=== PATIENT | male | born 1960 | race Caucasian/White ===

== ENCOUNTER 2022-01-28 15:28 | Outpatient (CLI) | payer MEDICAID, SELFPAY ==
[2022-01-28 17:39] LABS: Chloride* 99 mmol/L (96-114)
[2022-01-28 17:40] LABS: Albumin* 4.3 g/dL (3.3-5.0); Sodium* 132 mmol/L (135-149)
[2022-01-28 17:42] LABS: Creatinine* 2.8 mg/dL (0.5-1.5); Estimated Glomerular Filt Rate 25 ml/min
[2022-01-28 17:43] LABS: Blood Urea Nitrogen* 54 mg/dL (7-30); Carbon Dioxide* 24 mmol/L (20-32); Glucose* 107 mg/dL (60-115); Uric Acid* 6.7 mg/dL (2.2-8.4)
[2022-01-28 17:44] LABS: Calcium* 10.8 mg/dL (8.4-10.6); Phosphorus* 4.8 mg/dL (2.5-4.5)
[2022-01-28 17:53] LABS: C Reactive Protein* < 0.5 mg/dL (0.5-1.0)
[2022-01-28 18:13] LABS: Hepatitis B Surface Antigen* Negative (Negative)
[2022-01-28 18:31] LABS: Hepatitis C Virus Antibody* Negative (Negative)
[2022-01-28 20:14] LABS: Microalbumin Creatinine Ratio 40 mg/g (0-30); Microalbumin Urine 7 mg/dL
[2022-01-28 20:49] LABS: HIV 1/2/P24 Combo Screen* Negative (Negative)
[2022-01-30 13:15] LABS: Complement Component 3 170 mg/dL (90-180); Complement Component 4 34 mg/dL (10-40)
[2022-01-30 17:58] LABS: Kappa Qnt Free Light Chains 34.75 mg/L (3.30-19.40); Kappa-Lambda Qt FLC W/ Ratio 1.24 (0.26-1.65); Lambda Qnt Free Light Chains 28.13 mg/L (5.71-26.30)
[2022-02-01 04:02] LABS: Albumin 4.02 g/dL (3.75-5.01); Alpha 1 Globulin 0.42 g/dL (0.19-0.46); Alpha 2 Globulin 0.87 g/dL (0.48-1.05); Total Protein, Serum 7.6 g/dL (6.3-8.2)
[2022-02-11 13:02] LABS: ANCA IFA Titer <1:20
== END 2022-01-28 15:29 | disposition home or self-care (01) ==
PROVIDERS: PCP Family Medicine; Visit Provider Internal Medicine Nephrology
DX: N17.9 Acute kidney failure, unspecified (principal); N18.9 Chronic kidney disease, unspecified
CPT/HCPCS: 80069; 82043; 82570; 83516; 83520; 84165; 84550; 86140; 86160; 86225; 86255; 86703; 86803; 87086; 87340

== ENCOUNTER 2022-02-03 08:41 | Outpatient (CLI) | payer MEDICAID, SELFPAY ==
[2022-02-03 10:14] LABS: Total Protein Urine 30 mg/dL
[2022-02-03 10:20] LABS: Creatinine Urine 92.4 mg/dL
[2022-02-04 10:02] LABS: Collection Time Urine 24 Hours; Total Protein 24 Hour Urine 450 mg/dL; Total Volume 24 Hour Urine 1500 ml; Urine Creatinine mg/24 Hour 0 mg/Day
== END 2022-02-03 08:42 | disposition home or self-care (01) ==
LOC: NFLDREF 08:42
PROVIDERS: PCP Family Medicine; Visit Provider Internal Medicine Nephrology
DX: N17.9 Acute kidney failure, unspecified (principal); N18.9 Chronic kidney disease, unspecified
CPT/HCPCS: 82570; 84156

== ENCOUNTER 2022-02-11 09:04 | Outpatient (CLI) | payer MEDICAID, SELFPAY ==
--- NOTE | 2022-02-11 09:15 | CRLHL7_ITS ---
For Patients: As a result of the Century Cures Act, medical imaging exams and procedure reports are released immediately into your electronic medical record. You may view this report before your referring provider. If you have questions, please contact your health care provider. CLINICAL HISTORY: Acute kidney failure COMPARISON: none TECHNIQUE: Torre scale and color Doppler images were acquired of the kidneys. FINDINGS: Simple cyst is present which arises from the lower pole of the right kidney measuring 3.3 x 3.1 x 3.5 cm. There is no evidence of hydronephrosis, solid mass or calculus. The right kidney measures 11.6cm in length and the left kidney measures 11.9cm in length. The renal cortex appears of normal thickness. Normal color Doppler images of both kidneys. IMPRESSION: No hydronephrosis. Dictated by Samuel Talamantes MD @ 02/11/2022 10:01:23 AM (Electronically Signed)
== END 2022-02-11 09:05 | disposition home or self-care (01) ==
LOC: US 09:05
PROVIDERS: PCP Family Medicine; Visit Provider Internal Medicine Nephrology
DX: N17.9 Acute kidney failure, unspecified (principal)
CPT/HCPCS: 76775

== ENCOUNTER 2022-03-11 08:28 | Outpatient (CLI) | payer MEDICAID, SELFPAY ==
--- OUTSIDE RECORDS SUMMARY | 2022-03-11 08:30 | XMS_ITS | Clinical Summary ---
:1960 Author Organization [employer] [facility] [place] [address] Care Team Providers Name Role Phone Hi Adams MD Primary Care Provider Allergies No known active allergies Medications Medication Sig Dispensed Refills Start Date End Date Status NICODERM CQ 21 MG/24 HR Use as directed 6 weeks 0 11/14/2002 Active TD PT24 for smoking cessation. rosuvastatin (CRESTOR) Take 20 mg by 0 Active 20 mg tablet mouth once daily. metoprolol tartrate Take 50 mg by 0 Active (LOPRESSOR) 100 mg mouth 2 times tablet daily. lisinopril-hydrochlorot Take 1 Tablet by 0 Active hiazide, 20-25 mg, mouth once daily. (PRINZIDE, ZESTORETIC) 20-25 mg per tablet nitroglycerin Place 0.4 mg 0 Act bandar (NITROSTAT) 0.4 mg under the tongue sublingual tablet every 5 minutes if needed for Chest Pain. aspirin chewable 81 mg Chew 81 mg by 0 Active chewable tablet mouth once daily. clopidogreL (PLAVIX) 75 Take 1 Tablet (75 90 Tablet 3 03/07/20 21 Active mg tabletIndications: mg) by mouth once ASHD (arteriosclerotic daily. heart disease) amLODIPine (NORVASC) 10 TAKE ONE TABLET 90 Tablet 3 06/05/2021 Active mg tabletIndications: BY MOUTH (10MG) Essential hypertension ONCE DAILY ezetimibe (Zetia) 10 mg Take 1 Tablet (10 90 Tablet 3 09/27/19 22 Active tabletIndications: mg) by mouth once Coronary artery disease daily. involving [place] coronary artery without angina pectoris, unspecified whether [place] or transplanted heart Active Problems Problem Noted Date COPD (chronic obstructive pulmonary disease) Dyslipidemia 03/07/2021 ASHD (arteriosclerotic heart disease) 03/07/2021 Overview: - CCTA 02/22/2021 1. Borderline significant distal left ma in stenosis. 2. Severe proximal and intermediate neeraj rity distal RCA stenoses. A. Significant PDA stenosis in a small vessel. 3. Marked diffuse non-obstructive salguero ry artery disease. - angiogram 03/07/2021: s/p NILS x 3 RCA; s /p NILS LAD with side branch PTCA Chest pain 03/07/2021 HYPERTENSION - ESSENTIAL 11/14/2002 Hx TOBACCO USE Encounters Date Type Specialty Care Team Description 02/21/2022 Travel from Last 3 Months Social History Tobacco Use Types Packs/Day Years Used Date Former Smoker 1 Smokeless Tobacco: Never Used Comments: quit 8 years ago Alcohol Use Standard Drinks/Week Comments Yes 14 (1 standard drink = 0.6 oz pure alcoh ol) 2 cocktails per night Alcohol Habits Answer Date Recorded How often do you have a drink containing alcohol? Not asked How many drinks containing alcohol do you have on Not asked a typical day when you are drinking? How often do you have six or more drinks on one Not asked occasion? Comment: 2 cocktails per night 03/07/2021 Sex Assigned at Date Recorded Not on file COVID-19 Exposure Response Date Recorded In the last 10 days, have you been in contact Unable to asse ss 02/21/2022 7:16 AM CDT with someone who was confirmed or suspected to have Coronavirus/COVID-19? Obstetrics History Last Filed Vital Signs Vital Sign Reading Time Taken Comments Blood Pressure 142/97 03/08/2021 8:24 AM CDT Pulse 97 03/08/2021 8:24 AM CDT Temperature 36.7 ??C (98 ??F) 03/08/2021 8:24 AM CDT Respiratory Rate 16 03/08/2021 8:24 AM CDT Oxygen Saturation 98% 03/08/2021 8:24 AM CDT Inhaled Oxygen Concentration - - Weight 90.7 kg (200 lb) 03/07/2021 8:12 AM CDT Height 170.2 cm (5' 7) 03/07/2021 8:12 AM CDT Body Mass Index 31.32 03/07/2021 8:12 AM CDT Plan of Treatment Health Maintenance Due Date Last Done Comments Tdap 1972 Depression screening for age 12+ 1973 BMI (ht and wt on same day) for age 1207/04/1979 18+ Hepatitis C screening for age 18-79 1979 Tetanus booster 1981 Colonoscopy through age 75 2006 Zoster (shingles) series for age 50+ 2011 (1 of 2) COVID-19 vaccine series (4 - Booster 01/03/2022 09/03/2021, 02/26/2021, for Pfizer series) 02/05/2021 Influenza for age 50-64 03/06/2022 Lipids for age 45-75 03/04/2026 03/04/2021 Results Not on filefrom Last 3 Months Insurance Payer Benefit Plan / Subscriber ID Effective Dates Phone Addre ss Type Group [employer]INH PARR MA [id number] 2021-Present [address] [place] [address] Advance Directives Latest Code Status on File Code Status Date Activated Date Inactivated Comments Full Code 03/07/2021 8:55 AM 03/08/2021 12:47 PM Code Status Discussion: Discussed Care Teams Import/Export Specialist Relationship Specialty Start Date End Date Hi Adams MD PCP - General Family Practice 02/12/211999 [place] [phone]
--- OUTSIDE RECORDS SUMMARY | 2022-03-11 08:30 | XMS_ITS | Encounter Summary ---
:1960 Author Organization [facility] Address [address] [place] [address] Care Team Providers Name Role Phone Unavailable Primary Care Provider Unavailable Encounter Details Date Type Department Care Team Description 02/11/2022 Clinical Communication Division of Nephrology Poncho Quach, and Hypertension in Ayleen Jovel, [place], [place] Ph.D. [address] [facility] [address] [place] [address] [phone] Social History Tobacco Use Types Packs/Day Years Used Date Smoking Tobacco: Never Assessed Sex Assigned at Date Recorded Not on file documented as of this encounter Plan of Treatment Not on filedocumented as of this encounter Visit Diagnoses Not on filedocumented in this encounter
--- OUTSIDE RECORDS SUMMARY | 2022-03-11 08:30 | XMS_ITS | Clinical Summary ---
:1960 Author Organization [facility] Address [address] [place] [address] Care Team Providers Name Role Phone Unavailable Primary Care Provider Unavailable Source Comments Patient records contain information from all sites at [facility]. For routine questions regarding patient records, call [phone] during business hours, M-F 8:00 AM - 5:00 PM Central Time. Record requests for emergency care only can be directed to [phone] at any time.[facility] Encounters Date Type Specialty Care Team Description 02/25/2022 Clinical Nephrology and [place] Communication Hypertension Becka Quach M.D., Ph.D. 02/11/2022 Clinical Nephrology and [place] Communication Hypertension Becka Quach M.D., Ph.D. 01/28/2022 External Outreach Nephrology and Pon[place] Failure Renal Acute (Acute Kidney Injury) (HCC) (Primary Dx); Hypertension Becka Quach, Chronic Kidne y Disease (CKD), Stage 3a Glomerular Filtration Rate (GFR) 45 To 59 (HCC) Ayleen, Ph.D. from Last 3 Months Social History Tobacco Use Types Packs/Day Years Used Date Smoking Tobacco: Never Assessed Sex Assigned at Date Recorded Not on file Plan of Treatment Health Maintenance Due Date Last Done Comments CT Colonography 1960 Cologuard 1960 Colonoscopy 1960 Colorectal Cancer Screening 1960 FIT 1961 HIV Screening 1961 Hepatitis B Vaccines (1 of 3 - 1961 3-dose series) Hepatitis C Screening 1961 Pneumococcal vaccine (0-64 years) 1967 (1 - PCV) Zoster Vaccines (1 of 2) 2011 Depression Screening (Annual 07/06/2021 PHQ-2) COVID-19 Vaccine (4 - Booster for 01/03/2022 09/03/2021, , Pfizer series) 02/05/2021 Sodium Level 03/04/2022 03/04/2021 Creatinine Level 03/08/2022 03/08/2021, 03/07/2021, 03/04/2021, Additional history exists Potassium Level 03/08/2022 03/08/2021, 03/04/2021 Influenza Vaccine (#1) 2022 04/22/2021, 08/17/2017 Fasting Glucose for Diabetes 03/04/2024 03/04/2021 Screening Lipid (Cholesterol) Screening 03/04/2026 03/04/2021 DTaP,Tdap,and Td Vaccines (2 - Td 06/13/2031 06/13/2021 or Tdap) Insurance Payer Benefit Plan Subscriber ID Effective Dates Phone Address Type / Group [facility] [id number] 2021-Alonso [phone] [address] Medicaid HMO t 5 [place] [address]
--- OUTSIDE RECORDS SUMMARY | 2022-03-11 08:30 | XMS_ITS | Encounter Summary ---
:1960 Author Organization [facility] Address [address] [place] [address] Care Team Providers Name Role Phone Unavailable Primary Care Provider Unavailable Reason for Visit Appointment Request (Routine) - Closed Specialty Diagnoses / Procedures Referred By Contact Refer red To Contact Nephrology and Hi Adams Hypertension Ayleen [address] [place] [address] Referral ID Status Reason Start Date Expiration Date Visits Requ ested Visits Authorized [id number] Closed 01/10/2022 01/10/2023 1 Encounter Details Date Type Department Care Team Description 01/28/2022 External Outreach Division of Esau Keene Renal Acute (Acute Kidney Injury) (HCC) (Primary Dx); Nephrology and Ayleen Jovel, Chronic Kidne y Disease (CKD), Stage 3a Glomerular Filtration Rate (GFR) 45 To 59 (HCC) Hypertension in Ph.D. [address] [place] [phone] Social History Tobacco Use Types Packs/Day Years Used Date Smoking Tobacco: Never Assessed Sex Assigned at Date Recorded Not on file documented as of this encounter Consult Notes Becka Keene M.D., Ph.D. - 01/28/2022 3:00 PM CDT Referring Provider: Hi Adams M.D. SUBJECTIVE REASON FOR CONSULT Acute kidney injury. HISTORY OF PRESENT ILLNESS Mr. Huerta is a 61-year-old gentleman with a history of coronary artery disease status post 4 stents placed in February 2021. He also has history of long-standing hypertension diagnosed in 1999, on and off medication due to insurance issues. More recently, better controlled on treatment with lisinopril 20 mg daily and hydrochlorothiazide 25 mg daily, amlodipine 10 mg daily, metoprolol 50 mg twice a day.Patient is referred to Nephrology for evaluation of his kidney function. In June 2021, his creatinine was 1.2 mg/dL. It has been increasing since then. It was rechecked in September 2021, and was up to2 mg/dL, and it was repeated in December 2021, and it was 2.9 mg/dL. Patient does not take NSAIDs regularly, however he has started taking them within the last 4 weeks due to back pain and he stated he hadtaken 4 tablets with 200 mg since then. He has noticed decrease in his urinary output and difficulty to void with decreased urine stream at times. However, he feels that he is able to empty his bladder completely. No history of kidney stones. No family history of kidney disease. He has not noticed any problem urinating or blood in urine. [place], however he has presented some purpuric lesions in his upper extremities associated with some exposure. He does not have any lower extremity rash. Overall, patient feels well, however concerned for his kidney function. He has been taking his blood pressure at home, and it is usually in the 110s-120s/60s-70s. Today in clinic his blood pressure is borderline low with systolic of 98/64 diastolic, pulse 81. He is asymptomatic. PMH and PSH included in HPI Social History: No history of smoking, no alcohol Family History: No history of CKD REVIEW OF SYSTEMS All other systems were reviewed and are negative, rest as per HPI. OBJECTIVE PHYSICAL EXAMINATION Vital Signs: Blood pressure 98/64, pulse 81. General: No acute distress. Lying comfortably. Heart: Regular rate and rhythm. No murmurs, rubs, or gallops. Lungs: Clear to auscultation bilaterally. Abdomen: Prominent, nontender, nondistended. There are some bowel sounds. Extremities: Full range of motion. No edema. Normal gait. Neuro: No focal deficit. Skin: There is this purpuric lesions in upper extremities. Psych: Answers questions appropriately. No signs of anxiety or depression noted. DIAGNOSTICS Labs: I have reviewed available labs in detail with patient. ASSESSMENT / PLAN #1 Acute kidney injury of unclear origin #2 Hypertension management #3 Coronary artery disease status post stent placement February 2021, on chronic anticoagulation with Plavix Patient will be referred to Nephrology for evaluation of his kidney function. I have noticed rapid increase in his creatinine over the past 6 months from creatinine of 1.2 to most recent 1 of 2.9 last month. There is no recent urinalysis. There is no recent kidney ultrasound. I have ordered urinalysis, urine albumin:creatinine ratio. I have also ordered a 24-hour urine collection for protein. GN workup has been ordered to evaluate for KARELY, including viral serologies and autoimmune serologies. I haveordered a kidney ultrasound to evaluate kidney size and rule out obstruction as the cause of his acute kidney injury. I have discussed with him the recommendation of doing a kidney biopsy. If all this workup turns out to be normal, to further evaluate the cause. I will be contacting him once all thesetests have resulted. The patient will contact his local size marker as he is due to follow up with them to ask when it is safe to hold Plavix in preparation for kidney biopsy as he needs to be off Plav ix at least 7 days prior and to be off 7 days after kidney biopsy. All questions were answered. Nolvia Quach M.D., Ph.D. CT CT Job ID: [id number] Addendum: Lab work up was unremarkable. UA with bland sediment, no proteinuria. Unclear cause of his CKD. Kidney ultrasound pending. If ultrasound is normal, I favor doing a kidney biopsy for further evaluation, pending cardiology approval on holding anticoagulation 7 days prior and 7 days after procedure. documented in this encounter Plan of Treatment Not on filedocumented as of this encounter Visit Diagnoses Diagnosis Failure Renal Acute (Acute Kidney Injury ) (HCC) - Primary Chronic Kidney Disease (CKD), Stage 3a G lomerular Filtration Rate (GFR) 45 To 59 (HCC) documented in this encounter
--- OUTSIDE RECORDS SUMMARY | 2022-03-11 08:30 | XMS_ITS | Encounter Summary ---
:1960 Author Organization [facility] Address [address] [place] [address] Care Team Providers Name Role Phone Unavailable Primary Care Provider Unavailable Encounter Details Date Type Department Care Team Description 02/25/2022 Clinical Communication Division of Nephrology Poncho Quach, and Hypertension in Ayleen Jovel, [place], [place] Ph.D. [address] [facility] [address] [place] [phone] Social History Tobacco Use Types Packs/Day Years Used Date Smoking Tobacco: Never Assessed Sex Assigned at Date Recorded Not on file documented as of this encounter Miscellaneous Notes Telephone Encounter - Becka Keene M.D., Ph.D. - 02/25/2022 4:10 PM CDT I have reviewed patient's laboratory work and renal ultrasound, results are unremarkable. It is unclear etiology of his elevated creatinine. Creatinine has stabilized however has not improved yet. Patient is on anticoagulation. I will discuss with patient about the recommendation of doing a kidney biopsy for further investigation. I have contacted him today however I was not able to reach him I left a message to contact us back. Nolvia Quach M.D., Ph.D. documented in this encounter Plan of Treatment Not on filedocumented as of this encounter Visit Diagnoses Not on filedocumented in this encounter
[2022-03-11 11:44] LABS: PSA Screen* 0.62 ng/mL (0.10-4.00)
== END 2022-03-11 08:29 | disposition home or self-care (01) ==
LOC: NFLDREF 08:29
PROVIDERS: PCP Family Medicine; Visit Provider Family Medicine
DX: Z00.00 Encounter for general adult medical examination without abnormal findings (principal); Z12.5 Encounter for screening for malignant neoplasm of prostate
CPT/HCPCS: 84153

== ENCOUNTER 2022-03-18 08:48 | Outpatient (CLI) | payer MEDICAID, SELFPAY ==
--- OUTSIDE RECORDS SUMMARY | 2022-03-18 08:50 | XMS_ITS | Encounter Summary ---
:1960 Author Organization [facility] Address [address] [place] [address] Care Team Providers Name Role Phone Unavailable Primary Care Provider Unavailable Reason for Visit Appointment Request (Routine) - Closed Specialty Diagnoses / Procedures Referred By Contact Refer red To Contact Nephrology and Hi Adams Hypertension Ayleen [address] [place] [address] Referral ID Status Reason Start Date Expiration Date Visits Requ ested Visits Authorized [id number] Closed 01/10/2022 01/10/2023 1 Encounter Details Date Type Department Care Team Description 01/28/2022 External Outreach Division of Esau Keene Renal Acute (Acute Kidney Injury) (HCC) (Primary Dx); Nephrology and Ayleen Jovel, Chronic Kidne y Disease (CKD), Stage 3a Glomerular Filtration Rate (GFR) 45 To 59 (HCC) Hypertension in Ph.D. [address] [place] [phone] [phone] Social History Tobacco Use Types Packs/Day Years [...] resulted. The patient will contact his local gas engine performance engineer as he is due to follow up with them to ask when it is safe to hold Plavix in preparation for kidney biopsy as he needs to be off Plav ix at least 7 days prior and to be off 7 days after kidney biopsy. All questions were answered. Nolvia Quach M.D., Ph.D. CT CT Job ID: [id number] Addendum: Lab work up was unremarkable. UA [...]
--- OUTSIDE RECORDS SUMMARY | 2022-03-18 08:50 | XMS_ITS | Encounter Summary ---
:1960 Author Organization [facility] Address [address] [place] [address] Care Team Providers Name Role Phone Unavailable Primary Care Provider Unavailable Encounter Details Date Type Department Care Team Description 02/25/2022 Clinical Communication Division of Nephrology Poncho Quach, and Hypertension in Ayleen Jovel, [place], [place] Ph.D. [address] [facility] [address] [place] [phone] [phone] Social History Tobacco Use Types Packs/Day Years [...]
--- OUTSIDE RECORDS SUMMARY | 2022-03-18 08:50 | XMS_ITS | Clinical Summary ---
:1960 Author Organization [employer] [facility] [place] [address] Care Team Providers Name Role Phone Hi Adams MD Primary Care Provider Allergies No known active allergies Medications Medication Sig Dispensed Refills Start Date End Date Status rosuvastatin Take 20 mg by 0 Act bandar (CRESTOR) 20 mg mouth once tablet daily. metoprolol Take 50 mg by 0 Activ e tartrate mouth 2 times (LOPRESSOR) 100 mg daily. tablet lisinopril-hydroch Take 1 Tablet 0 Active lorothiazide, by mouth once 20-25 mg, daily. (PRINZIDE, ZESTORETIC) 20-25 mg per tablet nitroglycerin Place 0.4 mg 0 Act bandar (NITROSTAT) 0.4 mg under the sublingual tablet tongue every 5 minutes if needed for Chest Pain. aspirin chewable Chew 81 mg by 0 Active 81 mg chewable mouth once tablet daily. amLODIPine TAKE ONE 90 Tablet 3 06/05/2021 Active (NORVASC) 10 mg TABLET BY tabletIndications: MOUTH (10MG) Essential ONCE DAILY hypertension ezetimibe (Zetia) Take 1 Tablet 90 Tablet 3 09/26/2021 Active 10 mg (10 mg) by tabletIndications: mouth once Coronary artery daily. disease involving [place] coronary artery without angina pectoris, unspecified whether [place] or transplanted heart NICODERM CQ 21 Use as 6 weeks 0 11/14/2002 Disc ontinued MG/24 HR TD PT24 directed for 2 (*Med smoking complete/R egimen cessation. complete/ Level of care santana e) clopidogreL Take 1 Tablet 90 Tablet 3 03/07/2021 Dis continued (PLAVIX) 75 mg (75 mg) by 2 (*Me d tabletIndications: mouth once complete/Regimen ASHD daily. complete/L evel of (arteriosclerotic ca re change) heart disease) Active Problems Problem Noted Date COPD (chronic [...] Encounters Date Type Specialty Care Team Description 03/14/2022 Office Visit Samuel Wynn MD Follow Up 03/14/2022 Travel 02/21/2022 Travel from Last 3 Months Social [...] been in contact Unable to asse ss 03/14/2022 8:43 AM CDT with someone who was confirmed or suspected to have Coronavirus/COVID-19? Obstetrics History Last Filed Vital Signs Vital Sign Reading Time Taken Comments Blood Pressure 126/74 03/14/2022 3:21 PM CDT Pulse 84 03/14/2022 3:21 PM CDT Temperature 36.7 ??C (98 ??F) 03/08/2021 8:24 AM CDT Respiratory Rate 16 03/14/2022 3:21 PM CDT Oxygen Saturation 98% 03/08/2021 8:24 AM CDT Inhaled Oxygen Concentration - - Weight 100.7 kg (222 lb) 03/14/2022 3:21 PM CDT Height 170.2 cm (5' 7) 03/07/2021 8:12 AM CDT Body Mass Index 34.77 03/07/2021 8:12 AM CDT Plan of Treatment [...] Effective Dates Phone Addre ss Type Group FRAN[employer]ISE PURCELL FRANCOISE PURCELL [id number] 2021-Present [address] [place] [address] Advance Directives Latest Code Status on File Code Status Date Activated Date Inactivated Comments Full Code 03/07/2021 8:55 AM 03/08/2021 12:47 PM Code Status Discussion: Discussed Care Teams Attacher Relationship Specialty Start Date End Date Hi Adams MD PCP - General Family Practice 02/12/211999 [place] [address]
--- OUTSIDE RECORDS SUMMARY | 2022-03-18 08:50 | XMS_ITS | Encounter Summary ---
:1960 Author Organization [facility] Address [address] [place] [address] Care Team Providers Name Role Phone Unavailable Primary Care Provider Unavailable Encounter Details Date Type Department Care Team Description 02/11/2022 Clinical Communication Division of Nephrology Poncho Quach, and Hypertension in Ayleen Jovel, [place], [place] Ph.D. [address] [facility] [address] [place] [phone] Social History Tobacco Use Types Packs/Day Years Used Date Smoking Tobacco: Never Assessed Sex Assigned at Date Recorded Not on file documented as of this encounter Plan of Treatment Not on filedocumented as of this encounter Visit Diagnoses Not on filedocumented in this encounter
--- OUTSIDE RECORDS SUMMARY | 2022-03-18 08:50 | XMS_ITS | Clinical Summary ---
:1960 Author Organization [facility] Address [address] [place] [address] Care Team Providers Name Role Phone Unavailable Primary Care Provider Unavailable Source Comments Patient records contain information from all sites at [facility]. For routine questions regarding patient records, call [phone] during business hours, M-F 8:00 AM - 5:00 PM Central Time. Record requests for emergency care only can be directed to [phone] at any time.[facility] Encounters Date Type Specialty Care Team Description 03/18/2022 External Outreach Nephrology and [place] Arrived Hypertension Becka Quach M.D., Ph.D. 02/25/2022 Clinical Nephrology and Poncho Communication Hypertension [...] 1960 3-dose series) Hepatitis C Screening 1960 Zoster Vaccines (1 of 2) 2011 Depression Screening (Annual 07/06/2021 PHQ-2) COVID-19 Vaccine (4 - Booster for 01/03/2022 09/03/2021, , Pfizer series) 02/05/2021 Sodium Level 03/04/2022 03/04/2021 Creatinine Level 03/08/2022 03/08/2021, 03/07/2021, 03/04/2021, Additional history exists Potassium Level 03/08/2022 03/08/2021, 03/04/2021 Influenza Vaccine (#1) 2022 04/22/2021, 08/17/2017 Pneumococcal vaccine (0-64 years) 03/11/2023 03/11/2022 (2 - PCV) Fasting Glucose for Diabetes 03/04/2024 03/04/2021 Screening Lipid (Cholesterol) Screening 03/04/2026 03/04/2021 DTaP,Tdap,and Td Vaccines (2 - Td 06/13/2031 06/13/2021 or Tdap) Insurance Payer Benefit Plan Subscriber ID Effective Dates Phone Address Type / Group [facility] [id number] 2021-Alonso [phone] [address] Medicaid HMO t 5 [place] [address]
--- OUTSIDE RECORDS SUMMARY | 2022-03-18 08:50 | XMS_ITS | Encounter Summary ---
:1960 Author Organization [facility] Address [address] [place] [address] Care Team Providers Name Role Phone Unavailable Primary Care Provider Unavailable Reason for Visit Appointment Request (Routine) - Closed Specialty Diagnoses / Procedures Referred By Contact Refer red To Contact Nephrology and Hypertension Referral ID Status Reason Start Date Expiration Date Visits Requ ested Visits Authorized [id number] Closed 02/28/2022 02/28/2023 1 Encounter Details Date Type Department Care Team Description 03/18/2022 External Outreach Division of Nephrology Poncho lovett, [place]ige and Hypertension cordelia Jovel M.D., Ph.D. [address] [place] [phone] (Wo rk) Social History Tobacco Use Types Packs/Day Years Used Date Smoking Tobacco: Never Assessed Sex Assigned at Date Recorded Not on file documented as of this encounter Plan of Treatment Not on filedocumented as of this encounter Visit Diagnoses Not on filedocumented in this encounter
[2022-03-18 12:45] LABS: Albumin* 4.6 g/dL (3.3-5.0); Chloride* 102 mmol/L (96-114); Potassium* 5.4 mmol/L (3.6-5.1); Sodium* 134 mmol/L (135-149)
[2022-03-18 12:48] LABS: Blood Urea Nitrogen* 44 mg/dL (7-30); Carbon Dioxide* 21 mmol/L (20-32); Estimated Glomerular Filt Rate 38 ml/min
[2022-03-18 12:49] LABS: Calcium* 10.5 mg/dL (8.4-10.6); Glucose* 119 mg/dL (60-115)
== END 2022-03-18 08:49 | disposition home or self-care (01) ==
LOC: NFLDREF 08:49
PROVIDERS: PCP Family Medicine; Visit Provider Internal Medicine Nephrology
DX: N17.9 Acute kidney failure, unspecified (principal); N18.9 Chronic kidney disease, unspecified
CPT/HCPCS: 80069

== ENCOUNTER 2022-04-28 08:51 | Outpatient (CLI) | payer MEDICAID, SELFPAY ==
--- OUTSIDE RECORDS SUMMARY | 2022-04-28 08:41 | XMS_ITS | Encounter Summary ---
:1960 Author Organization [facility] Address [address] [place] [address] Care Team Providers Name Role Phone Unavailable Primary Care Provider Unavailable Encounter Details Date Type Department Care Team Description 02/11/2022 Clinical Communication Division of Nephrology Poncho Quach, and Hypertension in Ayleen Jovel, [place], [place] Ph.D. [address] [facility] [address] [place] [phone] Social History Tobacco Use Types Packs/Day Years Used Date Smoking Tobacco: Never Assessed Sex Assigned at Date Recorded Not on file documented as of this encounter Plan of Treatment Not on filedocumented as of this encounter Visit Diagnoses Not on filedocumented in this encounter
--- OUTSIDE RECORDS SUMMARY | 2022-04-28 08:41 | XMS_ITS | Clinical Summary ---
:1960 Author Organization [employer] [facility] [place] [address] Care Team Providers Name Role Phone Hi Adams MD Primary Care Provider Allergies No known active allergies Medications Medication Sig Dispensed Refills Start Date End Date Status rosuvastatin (CRESTOR) Take 20 mg by 0 [...] 0 Active chewable tablet mouth once daily. amLODIPine (NORVASC) 10 TAKE ONE TABLET 90 Tablet 3 06/05/2021 Active mg tabletIndications: BY MOUTH (10MG) Essential hypertension ONCE DAILY ezetimibe (Zetia) 10 mg Take 1 Tablet (10 90 Tablet 3 09/27/19 22 Active tabletIndications: mg) by mouth once Coronary artery disease daily. involving [place] coronary artery without angina pectoris, unspecified whether [place] or transplanted heart Active Problems Problem Noted [...] Assigned at Date Recorded Not on file Obstetrics History Last Filed Vital Signs Vital [...] 2) COVID-19 vaccine series (4 - Booster 10/29/2021 09/03/2021, 02/26/2021, for Pfizer series) 02/05/2021 Influenza for age 50-64 03/06/2022 Lipids for age 45-75 03/04/2026 03/04/2021 Results Not on filefrom Last 3 Months Insurance Payer Benefit Plan / Subscriber ID Effective Dates Phone Addre ss Type Group [employer] [place] [id number] 2021-Present [address] [place] [address] Advance Directives Latest Code Status on File Code Status Date Activated Date Inactivated Comments Full Code 03/07/2021 8:55 AM 03/08/2021 12:47 PM Code Status Discussion: Discussed Care Teams Senior Water/Wastewater Engineer Relationship Specialty Start Date End Date Hi Adams MD PCP - General Family Practice 02/12/211999 [place] [address]
--- OUTSIDE RECORDS SUMMARY | 2022-04-28 08:41 | XMS_ITS | Encounter Summary ---
:1960 Author Organization [facility] Address [address] [place] [address] Care Team Providers Name Role Phone Unavailable Primary Care Provider Unavailable Reason for Referral Outpatient (Routine) - Closed Specialty Diagnoses / Procedures Referred By Contact Refer red To Contact Diagnoses Failure Renal Acute (Acute Kidney Injury) [facility] Bi[facility] Left or Right Ayleen, Ph.D. [address] [place] [phone] Referral ID Status Reason Start Date Expiration Date Visits Requ ested Visits Authorized [id number] Closed 03/18/2022 03/18/2023 1 1 Reason for Visit Appointment Request (Routine) - Closed Specialty Diagnoses / Procedures Referred By Contact Refer red To Contact Nephrology and Hypertension Referral ID Status Reason Start Date Expiration Date Visits Requ ested Visits Authorized [id number] Closed 02/28/2022 02/28/2023 1 Encounter Details Date Type Department Care Team Description 03/18/2022 External Outreach Division of Esau Keene Renal Acute Nephrology and Ayleen Jovel, (Acute Kidney Hypertension in Ph.D. Injury) ([facility]) [place], [place] [address] [place] [address] (Primary Dx) [address] [place] [phone] Social History Tobacco Use Types Packs/Day Years Used Date Smoking Tobacco: Never Assessed Sex Assigned at Date Recorded Not on file documented as of this encounter Consult Notes Becka Keene M.D., Ph.D. - 03/18/2022 8:30 AM CDT SUBJECTIVE REASON FOR CONSULT KARELY. HISTORY OF PRESENT ILLNESS Mr. Huerta is a 61-year-old gentleman with history of coronary artery disease who is status post 4 stents in February 2021. Also, history of longstanding hypertension, diagnosed in 1999. On and off medication due to insurance issues. Recently with better controlled blood pressure with lisinopril 20 mg daily, hydrochlorothiazide 25 mg daily, amlodipine 10 mg daily, metoprolol 50 mg twice daily. He was referred to Nephrology a few months ago for evaluation of KARELY on CKD. His baseline in June 2021 wasa creatinine of 1.2 mg/dL. Since then, it has increased and is currently ranging around 2.9 mg/dL. No history of NSAIDs. He has noticed a decrease in his urinary output and difficulty to urinate with decreased urine stream. His ultrasound did not show any signs of urinary obstruction. We did several of these that came back negative. He has been on Plavix after stents were placed in February 2021, and it was recently discontinued about a week ago. Blood pressure has been well controlled when checked athome. Overall, he feels well and does not have any current concerns. OBJECTIVE VITAL SIGNS Blood pressure 126/74. Pulse 90. PHYSICAL EXAMINATION General: No acute distress, breathing comfortably. Heart: Regular rate and rhythm. No murmurs, rubs or gallops. Respiratory: Regular inspiratory effort. No wheezes, no rhonchi. Abdomen: Soft, not tender, not distended. Present bowel sounds. Extremities: Full range of motion. Normal gait. No edema in lower extremities Neuro: No focal deficits. Alert and oriented X 4. Skin: Warm. No rashes. Psych: Answers questions appropriately. No signs of anxiety or depression noted. DIAGNOSTICS Labs: I have reviewed available labs in detail with patient. ASSESSMENT / PLAN #1 Acute kidney injury of unclear etiology #2 Hypertension management Patient comes for followup. Workup for glomerulonephritis has been negative, renal ultrasound ruled out obstructive nephropathy . It is unclear what has caused his rise in creatinine from June 2021until now. His creatinine has not improved, and it seems to have stabilized at a level of 2.9. I have discussed with him about doing a kidney biopsy. We were waiting for him to be off Plavix. He discontinued this medication a week ago. Benefits and risks regarding kidney biopsy were discussed in detail with patient. Kidney biopsy is an outpatient procedure performed by the interventional radiologists under local anesthesia with ultrasound guidance. The benefits include the possibility to reach a diagnosis and guide therapy. The risks include a risk of infection, as we are introducing a needle in the skin, however, this risk is reduced by using a sterile technique. There is a risk of pain, this risk is reduced by using local anesthesia. And we extensively discussed the risk of bleeding. This risk is reduced by having patient's blood pressure well controlled at the time of procedure, and by holding any antiplatelets or anticoagulants for 7 days prior to biopsy, if the patient is on them (recently off plavix). If profuse bleeding is encountered after the procedure, we also discussed the risk of requiring a blood transfusion, and in some cases, a second procedure, such as an embolization to stop the bleeding. Patient is able to perform an informed medical decision weighting risks and benefits of the procedure and agrees on having biopsy done. He will have biopsy done next week, and we will discuss results when available. All questions were answered. Nolvia Quach M.D., Ph.D. CT CT Job ID: [id number] documented in this encounter Plan of Treatment Not on filedocumented as of this encounter Results US Kidney Biopsy Left or Right (03/28/2022 1:56 PM CDT) Anatomical Region Laterality Modality Abdomen, Renal, Ultrasound RST LOS, Ultrasound ARZ LOS, N/A Ultrasound Procedure FLA LOS, Abdominal FLA LOS, Procedural Specimen (Source) Anatomical Collection Method Collection Time Re ceived Time Location / / Volume Laterality 03/28/2022 1:56 PM CDT Impressions 03/28/2022 1:57 PM CDT Ultrasound-guided osage kidney biopsy. NR Narrative 03/28/2022 1:57 PM CDT EXAM: US KIDNEY BIOPSY LEFT OR RIGHT PRE-PROCEDURE: Patient seen and evaluate d. Allergies, pertinent medications, and history reviewed. Discussed risks, benefits, alternatives for procedure, and obtained informed consent. Patient understands information and questions an swered. Immediately prior to starting the procedure, in the presence of the assisting personnel, pro cedural pause was conducted to verify correct patient identity and verification of procedure t o be performed, and as applicable, correct side and site, correct patient position, availability o f implants, special equipment, or special requirements, and all image and specimen identification da ta. The roles and responsibilities of care team members, residents, and fellows were discussed. TECHNIQUE: Sterile. 1% lidocaine for loc al anesthesia. Location: Cortex lower pole of left kidn ey. Needle size: 18-gauge Number of passes: 2 Complication: None. Blood loss: Minimal. PATIENT INSTRUCTIONS: Patient may be dis missed from the radiology department when dismissal criteria met. POST-PROCEDURE DIAGNOSIS: Renal dysfunct ion. Procedure Note Valentin Espinosa M.D. - 03/28/2022Format ting of this note might be different from the original. EXAM: US KIDNEY BIOPSY LEFT OR RIGHT PRE-PROCEDURE: Patient seen and evaluate d. Allergies, pertinent medications, and history reviewed. Discussed risks, benefits, alternatives for procedure, and obtained informed consent. Patient understands information and questions an swered. Immediately prior to starting the procedure, in the presence of the assisting personnel, pro cedural pause was conducted to verify correct patient identity and verification of procedure t o be performed, and as applicable, correct side and site, correct patient position, availability o f implants, special equipment, or special requirements, and all image and specimen identification da ta. The roles and responsibilities of care team members, residents, and fellows were discussed. TECHNIQUE: Sterile. 1% lidocaine for loc al anesthesia. Location: Cortex lower pole of left kidn ey. Needle size: 18-gauge Number of passes: 2 Complication: None. Blood loss: Minimal. PATIENT INSTRUCTIONS: Patient may be dis missed from the radiology department when dismissal criteria met. POST-PROCEDURE DIAGNOSIS: Renal dysfunct ion. IMPRESSION: Ultrasound-guided osage kidney biopsy. NR Becka Quach M.D., Ph.D. IMG US PROCEDURES (ABNORMAL) CBC with Differential, Blood (03/28/2022 9:53 AM CDT) [facility] Method Time Signature Hemoglobin 10.4 (L) 13.2 - 03/28/2022 DTL 16.6 g/dL 10:30 AM CDT Hematocrit 34.7 (L) 38.3 - 03/28/2022 DTL 48.6 % 10:30 AM CDT Erythrocytes 3.94 (L) 4.35 - 03/28/2022 DTL 5.65 10:30 AM CDT x10(12)/L MCV 88.1 78.2 - 03/28/2022 DTL 97.9 fL 10:30 AM CDT RBC Distrib Width 12.7 11.8 - 03/28/2022 DTL 14.5 % 10:30 AM CDT Platelet Count 359 (H) 135 - 317 03/28/2022 DTL x10(9)/L 10:30 AM CDT Leukocytes 9.0 3.4 - 9.6 03/28/2022 DTL x10(9)/L 10:30 AM CDT Neutrophils 5.89 1.56 - 03/28/2022 DTL 6.45 10:30 AM CDT x10(9)/L Lymphocytes 1.66 0.95 - 03/28/2022 DTL 3.07 10:30 AM CDT x10(9)/L Monocytes 1.15 (H) 0.26 - 03/28/2022 DTL 0.81 10:30 AM CDT x10(9)/L Eosinophils 0.23 0.03 - 03/28/2022 DTL 0.48 10:30 AM CDT x10(9)/L Basophils 0.09 (H) 0.01 - 03/28/2022 DTL 0.08 10:30 AM CDT x10(9)/L Specimen Anatomical Collection Method Collection Time Receive d Time (Source) Location / / Volume Laterality Blood (Blood, 03/28/2022 9:53 AM 03/28/20 22 Venous) CDT 10:23 AM CDT Becka Quach M.D., Ph.D. LAB BLOOD ADD-ON Performing Organization Address City/State/ZIP Code Phon e Number [facility] - [address] [place], [place] [address] [facility] [place] [address] [facility] [place] 200 [facility] APTT (Activated Partial Thromboplastin Time) (03/28/2022 9:53 AM CDT) athologist Signature Activated 28 25 - 37 sec 03/28/2022 DTL Partial 10:39 AM CDT Thrombopl Time, P Specimen Anatomical Collection Method Collection Time Receive d Time (Source) Location / / Volume Laterality Blood (Blood, 03/28/2022 9:53 AM 03/28/20 22 Venous) CDT 10:23 AM CDT Becka Quach M.D., Ph.D. LAB BLOOD ADD-ON Performing Organization Address City/[facility] Phon e Number [facility] - [address] [place], [place] [address] [place] [address] [facility] [place] [address] Prothrombin Time (PT) (03/28/2022 9:53 AM CDT) P athologist Signature Prothrombin 10.8 9.4 - 12.5 03/28/2022 DTL Time, P sec 10:39 AM CDT INR 1.0 0.9 - 1.1 03/28/2022 DTL 10:39 AM CDT Comment: ----ADDITIONAL INFORMATION---- Standard intensity warfarin therapeutic range: 2.0 to 3.0 ?? High intensity warfarin therapeutic rang e: 2.5 to 3.5 Specimen Anatomical Collection Method Collection Time Receive d Time (Source) Location / / Volume Laterality Blood (Blood, 03/28/2022 9:53 AM 03/28/20 22 Venous) CDT 10:23 AM CDT Becka Quach M.D., Ph.D. LAB BLOOD ADD-ON Performing Organization Address City/[facility] Phon e Number [facility] - [address] [place], [place] [address] [facility] [place] [place] [address] [facility] [place] [address] [facility] documented in this encounter Visit Diagnoses Diagnosis Failure Renal Acute (Acute Kidney Injury ) (HCC) - Primary Failure Renal Acute (Acute Kidney Injury ) (HCC) documented in this encounter
--- OUTSIDE RECORDS SUMMARY | 2022-04-28 08:41 | XMS_ITS | Encounter Summary ---
:1960 Author Organization [facility] Address [address] [place] [address] Care Team Providers Name Role Phone Unavailable Primary Care Provider Unavailable Encounter Details Date Type Department Care Team Description 02/25/2022 Clinical Communication Division of Nephrology Poncho Quach, and Hypertension in Ayleen Jovel, [place], [place] Ph.D. [address] [facility] [address] [place] [phone] Social History Tobacco Use Types Packs/Day Years [...]
--- OUTSIDE RECORDS SUMMARY | 2022-04-28 08:41 | XMS_ITS | Clinical Summary ---
:1960 Author Organization [facility] Address [address] [place] [address] Care Team Providers Name Role Phone Unavailable Primary Care Provider Unavailable Source Comments Patient records contain information from all sites at [facility]. For routine questions regarding patient records, call [phone] during business hours, M-F 8:00 AM - 5:00 PM Central Time. Record requests for emergency care only can be directed to [phone] at any time.[facility] Allergies No known active allergies Medications Medication Sig Dispensed Refills Start Date End Date Status Ventolin HFA 90 as needed. 0 01/27/2022 Ac tive mcg/actuation inhaler amLODIPine Take by mouth. 0 06/05/2021 Act bandar (NORVASC) 10 mg tablet aspirin 81 mg Chew 81 mg. 0 Acti ve chewable tablet clopidogreL Take 75 mg by mouth 0 02/26/2022 Active (PLAVIX) 75 mg daily. tablet Advair Diskus INHALE 1 PUFF BY 0 02/19/2022 Active 250-50 mcg/act MOUTH TWICE A DAY - diskus inhaler IN THE MORNING AND EVENING APPROXIMATELY 12 HOURS APART lisinopril-hydroCHL Take 1 tablet by 0 03/03/2022 Active OROthiazide mouth daily. (VIRGEN ANDERSON C) 20-25 mg per tablet metoprolol tartrate Take 50 mg by mouth 2 0 03/03/20 22 Active (LOPRESSOR) 50 mg (two) times a day. tablet Encounters Date Type Specialty Care Team Description 04/01/2022 Clinical Radiology Valentin Espinosa Follow-up (Leelee Weaver M.D. Procedure Foll ow Up Phone Call) 03/28/2022 Hospital Encounter Becka Cespedes, Jemal (Acute MTerrence, Ph.D. Kidney Injury) ([facility]) 03/28/2022 Hospital Encounter Laboratory Medicine Pon[place] steen Renal Becka Quach, Acute (Acute M.D., Ph.D. Kidney Injury) (HCC) 03/18/2022 External Outreach Nephrology and [place] Failure Renal Hypertension Becka Quach, Acute (Acute M.D., Ph.D. Kidney Injury) (HCC) (Primary Dx) 02/25/2022 Clinical Nephrology and [place] Communication Hypertension Becka Quach M.D., Ph.D. 02/11/2022 Clinical Nephrology and [place] Communication Hypertension Becka Quach M.D., Ph.D. 01/28/2022 External Outreach Nephrology and [place] Failure Renal Acute (Acute Kidney Injury) (HCC) (Primary Dx); Hypertension Main Becka, Chronic Kidne y Disease (CKD), Stage 3a Glomerular Filtration Rate (GFR) 45 To 59 ([facility]) Ayleen, Ph.D. from Last 3 Months Social History Tobacco Use Types Packs/Day Years Used Date Smoking Tobacco: Former Cigarettes Smokeless Tobacco: Current Tobacco Cessation: Ready to Quit: Not As ked; Counseling Given: Not Answered Alcohol Use Standard Drinks/Week Comments Yes 0 (1 standard drink = 0.6 oz pure alcoho l) 9 cocktails per week Sex Assigned at Date Recorded Not on file Last Filed Vital Signs Vital Sign Reading Time Taken Comments Blood Pressure 122/78 03/28/2022 4:21 PM CDT Pulse 72 03/28/2022 4:21 PM CDT Temperature 36.6 ??C (97.9 ??F) 03/28/2022 2:15 PM CDT Respiratory Rate - - Oxygen Saturation 97% 03/28/2022 2:15 PM CDT Inhaled Oxygen Concentration - - Weight - - Height - - Body Mass Index - - Plan of Treatment Health Maintenance Due Date Last Done Comments CT Colonography 1960 Cologuard 1960 Colonoscopy 1960 Colorectal Cancer Screening 1960 FIT 1960 HIV Screening 1960 Hepatitis B Vaccines (1 of 3 - 1960 3-dose series) Hepatitis C Screening 1960 Tobacco Cessation counseling 1960 Zoster Vaccines (1 of 2) 2011 Depression Screening (Annual 07/06/2021 PHQ-2) COVID-19 Vaccine (4 - Booster for 10/29/2021 09/03/2021, , Pfizer series) 02/05/2021 Sodium Level 03/04/2022 03/04/2021 Creatinine Level 03/08/2022 03/08/2021, 03/07/2021, 03/04/2021, Additional history exists Potassium Level 03/08/2022 03/08/2021, 03/04/2021 Influenza Vaccine (#1) 2022 04/22/2021, 08/17/2017 Pneumococcal vaccine (0-64 years) 03/11/2023 03/11/2022 (2 - PCV) Fasting Glucose for Diabetes 03/04/2024 03/04/2021 Screening Lipid (Cholesterol) Screening 03/04/2026 03/04/2021 DTaP,Tdap,and Td Vaccines (2 - Td 06/13/2031 06/13/2021 or Tdap) Procedures Procedure Name Priority Date/Time Associated Comments Diagnosis US KIDNEY BIOPSY LEFT RAD - Routine 03/28/2022 1:56 Failure Renal R esults for OR RIGHT (most inpatients PM CDT Acute (Acute this proced ure and all Kidney Injury) are in the outpatients) ([facility]) results section. RENAL PATHOLOGY Timed 03/28/2022 1:43 Results f or PM CDT this procedure are in the results section. CBC WITH Routine 03/28/2022 9:53 Failure Renal Results for DIFFERENTIAL, B AM CDT Acute (Acute this procedu re Kidney Injury) are in the ([facility]) results section. ACTIVATED PARTIAL Routine 03/28/2022 9:53 Failure Renal Result s for THROMBOPLASTIN TIME AM CDT Acute (Acute this pro cedure (APTT), P Kidney Injury) are in the ([facility]) results section. PROTHROMBIN TIME Routine 03/28/2022 9:53 Failure Renal Results for (PT), P AM CDT Acute (Acute this procedure Kidney Injury) are in the ([facility]) results section. from Last 3 Months Results US Kidney Biopsy Left or Right (03/28/2022 1:56 PM CDT) Anatomical Region Laterality Modality Abdomen, Renal, Ultrasound RST LOS, Ultrasound ARZ LOS, N/A Ultrasound Procedure FLA LOS, Abdominal FLA LOS, Procedural Specimen (Source) Anatomical Collection Method Collection Time Re ceived Time Location / / Volume Laterality 03/28/2022 1:56 PM CDT Impressions 03/28/2022 1:57 PM CDT Ultrasound-guided koi kidney biopsy. NR Narrative 03/28/2022 1:57 PM [...] POST-PROCEDURE DIAGNOSIS: Renal dysfunct ion. IMPRESSION: Ultrasound-guided koi kidney biopsy. NR Becka Quach M.D., Ph.D. IMG US PROCEDURES Renal Pathology (03/28/2022 1:43 PM CDT) Component Value Ref Test Analysis Performed Pathologis t Range Method Time At Signature 03/31/2022 DRBX 3:52 PM CDT Report Santo Arias M.D., Ph.D. 03/31/2022 DR BX electronically 3:52 PM signed by CDT I verify that I have examined all relevant slides/materials for the specimen(s) and rendered or confirmed the diagnosis. Gross Description Light Microscopy: Received in formalin for light 03/31/2022 DRBX microscopy: 1 piece(s) of tissue measuring 1.5 x 0.04 (cut) 3:52 PM cm. ??1 piece(s) measuring 0.2 x 0.04 cm is taken from the CDT formalin specimen for electron microscopy. ??Submitted in total in block(s) A4. (TS) Electron Microscopy: Refer to Light Microscopy for details on reallocation of tissue. (TS) Immunofluorescence: Received in Roland for immunofluorescence: 1 piece(s) of tissue measuring 1.3 x 0.03 cm. ??Submitted in total for immunofluorescence. (IY) Material Received A. : 03/31/2022 DRBX 3:52 PM CDT 1 - Formalin 10% wet tissue 1 - Roland wet tissue Disclaimer This test was developed and its performance characteri stics 03/31/2022 DRBX determined by [facility] in a manner consistent with CLIA 3:52 PM requirements. This test has not been cleared or approved by CDT the U.S. Food and Drug Administration. Addendum ELECTRON MICROSCOPY: ??Two survey sections are examined. 04/14/2022 DRBX There are up to five glomeruli present. ??None of the 2:51 PM glomeruli are globally sclerosed. ??Ultrastructural CDT examination of two glomeruli from block 2 show relatively well preserved foot processes of the visceral epithelial cells. ??Some of the capillary loops show ischemic changes with collapse of the glomerular basement membranes. Electron dense deposits are not present along the capillary chopra. ??The glomerular basement membranes appear slightly thickened. ??The endothelial cells do not contain tubuloreticular inclusions. ??In one capillary loop, needle shaped cleft/cholesterol embolus is noted. ??The endothelial cells show loss of fenestrations, they do not contain tubuloreticular inclusions. ??Segmental collapse of the capillary abi is also present in one glomerulus, suggestive of secondary focal segmental glomerulosclerosis. The mesangium shows minimal increase in matrix material, it does not contain electron dense deposits. ? Impression: ?? Kidney, needle biopsy: ??1) Acute tubu lar injury. ??2) Arteriosclerosis, moderate. 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 Addendum Comment: ??Ultrastructural studies show a needle-shaped cleft in a glomerular capillary, consistent with atheroembolic disease. Signed by Santo Arias M.D., Ph.D. 04/14/2022 2:51 PM Comment: REVISED RESULTS Interpretation FINAL DIAGNOSIS 04/14/2022 2:51 PM CDT DRBX Kidney, needle biopsy: ??1) Acute tubular injury. ??2) Arteriosclerosis, moderate. ??3) Focal global glomerulosclerosis, with mild tubular atrophy and interstitial fibrosis. COMMENT The biopsy is adequate for interpretation. This renal biopsy shows acute tubular injury that is superimposed on mild-moderate chronic changes involving all components of the parenchyma including mild focal global glomerulosclerosis, mild tubular atrophy and interstitial fibrosis, and moderate arteriosclerosis. ??There is no evidence of an immune complex-mediated glomerulonephritis. MICROSCOPIC DESCRIPTION ? LIGHT MICROSCOPY: Tissue sections are stained with H&E, PAS, Mckay trichrome, and Castillo methenamine silver to aid in the morphological interpretation. ??The sample submitted for light microscopy contains two cores. ??They contain renal cortex and medulla. ??There are approximately 15 glomeruli present. ??Three glomeruli are globally sclerosed. Glomeruli with segmental sclerosis are not present. ??The glomeruli show no evidence of crescents, fibrinoid necrosis, thrombosis, or endocapillary hypercellularity. ??The mesangium is unremarkable, proliferative features are not present. ??Basement membrane spikes, pinholes, or double contours are not present along the capillary chopra. ?TUBULES AND INTERSTITIUM: ??Tubules show degenerative changes with distention and flattening of the epithelium, some of the tubules show increased vacuolization of the tubular epithelial cells and contain necrotic debris in the lumen. ??There is also mild interstitial edema and focal interstitial inflammation present, the infiltrates contain mostly mononuclear cells. ??There is also mild (20-25%) tubular atrophy and interstitial fibrosis present. ?VESSELS: ??Arteries show moderate sclerosis o f the intima. ??There is no evidence of thrombosis, emboli, or arteritis. ? IMMUNOFLUORESCENT HISTOLOGY: Immunofluorescence staining is performed using antibodies to IgA, IgG, IgM, C1q, C3, albumin, fibrinogen, kappa, and lambda. ??There are three glomeruli present. ??None of the glomeruli are globally sclerosed. ??The glomeruli are negative for IgA, IgG, IgM, C1q, C3, albumin, fibrinogen, kappa and lambda light chains. ? ELECTRON MICROSCOPY: Electron microscopy will be reported as an addendum. CLINICAL INFORMATION This is a 61-year-old man presenting with acute tubular injury, hypertension, coronary artery disease, status post stent placement in 2020. ??Serum creatinine has gone up over the last six months from a baseline of 1.2 to 2.9. Serologies are all negative. Specimen Anatomical Collection Method Collection Time Receive d Time (Source) Location / / Volume Laterality Biopsy (Kidney, 03/28/2022 1:43 PM 2021 2:27 Left) CDT PM CDT Narrative This result has an attachment that is no t available. Becka Quach M.D., Ph.D. LAB PATH RENAL ORDER RADHA Performing Organization Address City/State/ZIP Code Phon e Number [facility] - [address] [place], [place] [address] [facility] [place] [address] Laboratories-[facility] [address] APTT (Activated Partial Thromboplastin Time) (03/28/2022 9:53 AM CDT) P athologist Signature Activated 28 25 - 37 sec 03/28/2022 DTL Partial 10:39 AM CDT Thrombopl Time, P Specimen Anatomical Collection Method Collection Time Receive d Time (Source) Location / / Volume Laterality Blood (Blood, 03/28/2022 9:53 AM 03/28/20 22 Venous) CDT 10:23 AM CDT Becka Quach M.D., Ph.D. LAB BLOOD ADD-ON Performing Organization Address City/[facility]/ZIP Code Phon e Number [facility] - [address] [place] [address] [place] [address] Laboratories-[facility] 200 [facility] Prothrombin Time (PT) (03/28/2022 9:53 AM CDT) [...] Ph.D. LAB BLOOD ADD-ON Performing Organization Address City/[facility] Code Phon e Number [facility] - [address] [place] [address] [place] [address] Laboratories-[address] (ABNORMAL) CBC with Differential, Blood (03/28/2022 9:53 AM CDT) Patholo gist Method Time Signature Hemoglobin 10.4 (L) 13.2 [...] Organization Address City/State/ZIP Code Phon e Number [facility] - [address] [place], [place] [address] [place] [address] Laboratories-[facility] [address] from Last 3 Months Insurance Payer Benefit Plan Subscriber ID Effective Dates Phone Address Type / Group [facility] [id number] 2021-Presen [phone] [id number] Medicaid HMO t 5 [place] [address]
--- OUTSIDE RECORDS SUMMARY | 2022-04-28 08:41 | XMS_ITS | Encounter Summary ---
:1960 Author Organization [facility] Address [address] [place] [address] Care Team Providers Name Role Phone Unavailable Primary Care Provider Unavailable Reason for Referral Outpatient (Routine) - Closed Specialty Diagnoses / Procedures Referred By Contact Refer red To Contact Diagnoses Failure Renal Acute (Acute Kidney Injury) ([facility] Kidney Biopsy Left or Right Ayleen, Ph.D. [address] [place] [phone] Referral ID Status Reason Start Date Expiration Date Visits Requ ested Visits Authorized [id number] Closed 03/18/2022 03/18/2023 1 1 Reason for Visit Auth/Cert Specialty Diagnoses / Procedures Referred By Contact Refer red To Contact Diagnoses Failure Renal Acute (Acute Kidney Injury) (HCC) Procedures US KIDNEY BIOPSY LEFT OR RIGHT Referral ID Status Reason Start Date Expiration Date Visits Requ ested Visits Authorized [id number] 1 1 Encounter Details Date Type Department Care Team Description 03/28/2022 Hospital Encounter Outpatient Surgery Nia Keene Renal Acute Unit in Becka Sweet M.D., (Acute [place] Ph.D. Injury) (HCC) 200 [facility] [address] [place] [phone] Social History Tobacco Use Types Packs/Day Years Used Date Smoking Tobacco: Former Cigarettes Smokeless Tobacco: Current Tobacco Cessation: Ready to Quit: Not As ked; Counseling Given: Not Answered Alcohol Use Standard Drinks/Week Comments Yes 0 (1 standard drink = 0.6 oz pure alcoho l) 9 cocktails per week Sex Assigned at Date Recorded Not on file documented as of this encounter Last Filed Vital Signs Vital Sign Reading Time Taken Comments Blood Pressure 122/78 03/28/2022 4:21 PM CDT Pulse 72 03/28/2022 4:21 PM CDT Temperature 36.6 ??C (97.9 ??F) 03/28/2022 2:15 PM CDT Respiratory Rate - - Oxygen Saturation 97% 03/28/2022 2:15 PM CDT Inhaled Oxygen Concentration - - Weight - - Height - - Body Mass Index - - documented in this encounter Medications at Time of Discharge Medication Sig Dispensed Refills Start Date End Date Advair Diskus 250-50 INHALE 1 PUFF BY MOUTH 0 mcg/act diskus inhaler TWICE A DAY - IN THE MORNING AND EVENING APPROXIMATELY 12 HOURS APART aspirin 81 mg chewable Chew 81 mg. 0 tablet clopidogreL (PLAVIX) 75 Take 75 mg by mouth 0 mg tablet daily. Ventolin HFA 90 as needed. 0 01/27/2022 mcg/actuation inhaler amLODIPine (NORVASC) 10 Take by mouth. 0 06/05/20 21 mg tablet lisinopril-hydroCHLOROt Take 1 tablet by mouth 0 03/03/2022 hiazide daily. (PRINZIDE,ZESTORETIC) 20-25 mg per tablet metoprolol tartrate Take 50 mg by mouth 2 0 03/03 (LOPRESSOR) 50 mg (two) times a day. tablet documented as of this encounter Plan of Treatment Not on filedocumented as of this encounter Procedures Procedure Name Priority Date/Time Associated Comments Diagnosis US KIDNEY BIOPSY RAD - Routine 03/28/2022 1:56 Failure Renal Result s for this LEFT OR RIGHT (most inpatients PM CDT Acute (Acute procedure are in and all Kidney Injury) the results outpatients) (HCC) section. RENAL PATHOLOGY Timed 03/28/2022 1:43 Results f or this PM CDT procedure are i n the results section. documented in this encounter Results US Kidney Biopsy Left or Right (03/28/2022 1:56 PM CDT) Anatomical Region Laterality Modality Abdomen, Renal, Ultrasound RST LOS, Ultrasound ARZ LOS, N/A Ultrasound Procedure FLA LOS, Abdominal FLA LOS, Procedural Specimen (Source) Anatomical Collection Method Collection Time Re ceived Time Location / / Volume Laterality 03/28/2022 1:56 PM CDT Impressions 03/28/2022 1:57 PM CDT Ultrasound-guided [place] kidney biopsy. NR Narrative 03/28/2022 1:57 PM [...] POST-PROCEDURE DIAGNOSIS: Renal dysfunct ion. IMPRESSION: Ultrasound-guided [place] kidney biopsy. NR Becka Quach M.D., Ph.D. IMG US PROCEDURES Renal Pathology (03/28/2022 1:43 PM CDT) Component Value Ref Test Analysis Performed Pathologis t Range Method Time At Signature 03/31/2022 DRBX 3:52 PM CDT Report Santo Arias M.D., Ph.D. 03/31/2022 BX electronically 3:52 PM signed by CDT [...] performance characteri stics 03/31/2022 DRBX determined by [facility] in a manner consistent with CLIA [...] Organization Address City/State/ZIP Code Phon e Number [facility] - [address] [place], [place] [address] [facility] [place] [address] Laboratories-[facility] [address] documented in this encounter Visit Diagnoses Diagnosis Failure Renal Acute (Acute Kidney Injury ) (HCC) documented in this encounter Administered Medications Inactive Administered Medications - up to 3 most recent administrations Medication Order MAR Action Action Date Dose Rate Site acetaminophen tablet 1,000 mg (TYLENOL) 1,000 mg, oral, Every 6 hours PRN, mild pain or score 1-3 of 10, first line option, Starting on Thu03/28/22 at 1414 lidocaine 10 mg/mL (1 %) injection Given 03/28/2022 1:49 10 mL Abdominal (XYLOCAINE) PM CDT Tissue Code/trauma/sedation medication, Starting on Thu03/28/22 at 1349 documented in this encounter Active and Recently Administered Medications Times are shown in CDT. PRN Medication Order 03/26/2022 03/27/2022 03/28/2022 acetaminophen tablet 1,000 mg (TYLENOL) 1,000 mg, oral, Every 6 hours PRN, mild pain or score 1-3 of 10, first line option, Starting on Thu03/28/22 at 1414 lidocaine 10 mg/mL (1 %) injection (XYLOCAINE) (COMPLETED) 1349 (Given - Provider: Valentin Espinosa M.D.) Code/trauma/sedation medication, Starting on Thu03/28/22 at 1349 documented in this encounter
--- OUTSIDE RECORDS SUMMARY | 2022-04-28 08:41 | XMS_ITS | Encounter Summary ---
:1960 Author Organization [facility] Address [address] [place] [address] Care Team Providers Name Role Phone Unavailable Primary Care Provider Unavailable Encounter Details Date Type Department Care Team Description 03/28/2022 Hospital Encounter Department of [place] Quach, Deandre kevin Renal Acute Laboratory Medicine Ayleen Jovel, (Acute K idney and Pathology, Ph.D. Injury) ([facility]) [place], in [address] [facility] [phone] [place] [address] [place], [place] (Work) [phone] Social History Tobacco Use Types Packs/Day Years Used Date Smoking Tobacco: Former Cigarettes Smokeless Tobacco: Current Alcohol Use Standard Drinks/Week Comments Yes 0 (1 standard drink = 0.6 oz pure alcoho l) 9 cocktails per week Sex Assigned at Date Recorded Not on file documented as of this encounter Medications at Time of Discharge Medication Sig Dispensed Refills Start Date End Date Advair Diskus 250-50 INHALE 1 PUFF BY MOUTH 0 mcg/act diskus inhaler TWICE A DAY - IN THE MORNING AND EVENING APPROXIMATELY 12 HOURS APART amLODIPine (NORVASC) 10 Take by mouth. 0 06/05/20 21 mg tablet clopidogreL (PLAVIX) 75 Take 75 mg by mouth 0 mg tablet daily. lisinopril-hydroCHLOROt Take 1 tablet by mouth 0 03/03/2022 hiazide daily. (PRINZIDE,ZESTORETIC) 20-25 mg per tablet metoprolol tartrate Take 50 mg by mouth 2 0 03/03 (LOPRESSOR) 50 mg (two) times a day. tablet Ventolin HFA 90 as needed. 0 01/27/2022 mcg/actuation inhaler documented as of this encounter Plan of Treatment Not on filedocumented as of this encounter Procedures Procedure Name Priority Date/Time Associated Comments Diagnosis ACTIVATED PARTIAL Routine 03/28/2022 9:53 AM Failure Renal Res ults for this THROMBOPLASTIN TIME CDT Acute (Acute procedur e are in (APTT), P Kidney Injury) the results ([facility]) section. PROTHROMBIN TIME (PT), Routine 03/28/2022 9:53 AM Failure Nona l Results for this P CDT Acute (Acute procedure are i n Kidney Injury) the results ([facility]) section. CBC WITH DIFFERENTIAL, Routine 03/28/2022 9:53 AM Failure Nona l Results for this B CDT Acute (Acute procedure are i n Kidney Injury) the results ([facility]) section. documented in this encounter Results (ABNORMAL) CBC with Differential, Blood (03/28/2022 9:53 AM CDT) [place] [facility] Method Time Signature Hemoglobin 10.4 (L) [...] Ph.D. LAB BLOOD ADD-ON Performing Organization Address [facility] Phon e Number [facility] - [address] [place] [address] APTT (Activated Partial Thromboplastin Time) (03/28/2022 9:53 [...] Ph.D. LAB BLOOD ADD-ON Performing Organization Address City/[facility] Phon e Number [facility] - [address] Prothrombin Time (PT) (03/28/2022 9:53 AM [...] City/State/ZIP Code Phon e Number [facility] - [facility] [address] [place], [place] [address] [facility] [place] [place] [address] Laboratories-[facility] [address] documented in this encounter Visit Diagnoses Diagnosis Failure Renal Acute (Acute Kidney Injury ) (HCC) documented in this encounter
--- OUTSIDE RECORDS SUMMARY | 2022-04-28 08:41 | XMS_ITS | Encounter Summary ---
:1960 Author Organization [facility] Address [address] [place] [address] Care Team Providers Name Role Phone Unavailable Primary Care Provider Unavailable Reason for Visit Reason Comments Follow-up Post Procedure Follow Up Blank ne Call Encounter Details Date Type Department Care Team Description 04/01/2022 Clinical Communication Department of Valentin Espinosa (Post Radiology, Carmencita Weaver M.D. Procedure Follow Up [facility] in [address] Phone Call) [facility] [phone] [address] [facility] [phone] [place], [place] (Work) [phone] Social History Tobacco Use Types Packs/Day Years Used Date Smoking Tobacco: Former Cigarettes Smokeless Tobacco: Current Alcohol Use Standard Drinks/Week Comments Yes 0 (1 standard drink = 0.6 oz pure alcoho l) 9 cocktails per week Sex Assigned at Date Recorded Not on file documented as of this encounter Miscellaneous Notes Telephone Encounter - Phylicia Sctot R.N. - 04/01/2022 8:05 AM CDT Unable to reach patient for post-procedure phone call. Procedure performed: Kidney Date of biopsy/ procedure: 03/28/2022 Name of performing practitioner: Dr. Espinosa Dates of attempting to contact patient: 03/31/2022. 03/31/2022 *RN attempted to call pt. regarding post procedural assessment, not result related documented in this encounter Plan of Treatment Not on filedocumented as of this encounter Visit Diagnoses Not on filedocumented in this encounter
--- OUTSIDE RECORDS SUMMARY | 2022-04-28 08:41 | XMS_ITS | Encounter Summary ---
:1960 Author Organization [facility] Address [address] [place] [address] Care Team Providers Name Role Phone Unavailable Primary Care Provider Unavailable Reason for Visit Appointment Request (Routine) - Closed Specialty Diagnoses / Procedures Referred By Contact Refer red To Contact Nephrology and Hi Adams Hypertension M.D. 1999 [place] [address] Referral ID Status Reason Start Date Expiration Date Visits Requ ested Visits Authorized [id number] Closed 01/10/2022 01/10/2023 1 Encounter Details Date Type Department Care Team Description 01/28/2022 External Outreach Division of Esau Keene Renal Acute (Acute Kidney Injury) (HCC) (Primary Dx); Nephrology and Ayleen Jovel, Chronic Kidne y Disease (CKD), Stage 3a Glomerular Filtration Rate (GFR) 45 To 59 (HCC) Hypertension in Ph.D. [place], [place] [address] [place] [address] [place] [phone] [phone] Social History Tobacco Use Types Packs/Day Years [...] any problem urinating or blood in urine. Main, however he has presented some purpuric lesions [...] resulted. The patient will contact his local visitor services information assistant as he is due to follow up with them to ask when it is safe to hold Plavix in preparation for kidney biopsy as he needs to be off Plav ix at least 7 days prior and to be off 7 days after kidney biopsy. All questions were answered. Nolvia Quach M.D., Ph.D. CT CT Job ID: [id number]/[facility] Addendum: Lab work up was unremarkable. UA [...]
[2022-04-28 10:24] LABS: Chloride* 101 mmol/L (96-114)
[2022-04-28 10:25] LABS: Albumin* 4.7 g/dL (3.3-5.0); Potassium* 5.4 mmol/L (3.6-5.1); Sodium* 135 mmol/L (135-149)
[2022-04-28 10:27] LABS: Creatinine* 1.9 mg/dL (0.5-1.5); Estimated Glomerular Filt Rate 40 ml/min
[2022-04-28 10:28] LABS: Blood Urea Nitrogen* 47 mg/dL (7-30); Calcium* 10.9 mg/dL (8.4-10.6); Carbon Dioxide* 25 mmol/L (20-32); Glucose* 120 mg/dL (60-115)
== END 2022-04-28 08:52 | disposition home or self-care (01) ==
PROVIDERS: PCP Family Medicine; Visit Provider Internal Medicine Nephrology
DX: N18.9 Chronic kidney disease, unspecified (principal)
CPT/HCPCS: 80069

== ENCOUNTER 2022-04-29 13:35 | Outpatient (CLI) | payer MEDICAID, SELFPAY ==
--- OUTSIDE RECORDS SUMMARY | 2022-04-29 13:10 | XMS_ITS | Clinical Summary ---
:1960 Author Organization [employer] [facility] [place] [address] Care Team Providers Name Role Phone Hi [...] mouth once Coronary artery disease daily. 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
--- OUTSIDE RECORDS SUMMARY | 2022-04-29 13:10 | XMS_ITS | Encounter Summary ---
:1960 Author Organization [facility] Address [address] [place] [address] Care Team Providers Name Role Phone Unavailable Primary Care Provider Unavailable Encounter Details Date Type Department Care Team Description 02/11/2022 Clinical Communication Division of Nephrology Poncho Quach, and Hypertension in Ayleen Jovel, [place], [place] Ph.D. [address] [facility] [address] [place] [phone] Social History Tobacco Use Types Packs/Day Years Used Date Smoking Tobacco: Never Assessed Sex Assigned at Date Recorded Not on file documented as of this encounter Plan of Treatment Not on filedocumented as of this encounter Visit Diagnoses Not on filedocumented in this encounter
--- OUTSIDE RECORDS SUMMARY | 2022-04-29 13:10 | XMS_ITS | Clinical Summary ---
:1960 Author Organization [facility] Address [address] [place] [address] Care Team Providers Name Role Phone Unavailable Primary Care Provider Unavailable Source Comments Patient records contain information from all sites at [facility]. For routine questions regarding patient records, call [phone] during business hours, M-F 8:00 AM - 5:00 PM Central Time. Record requests for emergency care only can be directed to [phone] at any time.[facility] Allergies No known active allergies Medications [...] 0 03/03/2022 Active OROthiazide mouth daily. (VIRGEN ANDERSON) 20-25 mg per tablet metoprolol tartrate Take 50 mg by mouth 2 0 03/03/20 22 Active (LOPRESSOR) 50 mg (two) times a day. tablet Encounters Date Type Specialty Care Team Description 04/01/2022 Clinical Radiology Valentin Espinosa Follow-up (Pos keith Weaver M.D. Procedure Foll ow Up Phone Call) 03/28/2022 Hospital Encounter Poncho Becka Crowe, Jemal (Acute MTerrence, Ph.D. Kidney Injury) ([facility]) 03/28/2022 Hospital Encounter Laboratory Medicine Poncho steen [...] Glomerular Filtration Rate (GFR) 45 To 59 ([facility]) Ayleen, Ph.D. from Last 3 Months Social [...] all Kidney Injury) are in the outpatients) ([facility]) results section. RENAL PATHOLOGY Timed 03/28/2022 1:43 Results f or PM CDT this procedure are in the results section. CBC WITH Routine 03/28/2022 9:53 Failure Renal Results for DIFFERENTIAL, B AM CDT Acute (Acute this procedu re Kidney Injury) are in the ([facility]) results section. ACTIVATED PARTIAL Routine 03/28/2022 9:53 Failure Renal Result s for THROMBOPLASTIN TIME AM CDT Acute (Acute this pro cedure (APTT), P Kidney Injury) are in the ([facility]) results section. PROTHROMBIN TIME Routine 03/28/2022 9:53 Failure Renal Results for (PT), P AM CDT Acute (Acute this procedure Kidney Injury) are in the ([facility]) results section. from Last 3 Months Results US Kidney Biopsy Left or Right (03/28/2022 1:56 PM CDT) Anatomical Region Laterality Modality Abdomen, Renal, Ultrasound RST LOS, Ultrasound ARZ LOS, N/A Ultrasound Procedure FLA LOS, Abdominal FLA LOS, Procedural Specimen (Source) Anatomical Collection Method Collection Time Re ceived Time Location / / Volume Laterality 03/28/2022 1:56 PM CDT Impressions 03/28/2022 1:57 PM CDT Ultrasound-guided iroquois kidney biopsy. NR Narrative 03/28/2022 1:57 PM [...] POST-PROCEDURE DIAGNOSIS: Renal dysfunct ion. IMPRESSION: Ultrasound-guided iroquois kidney biopsy. NR Becka Quach M.D., Ph.D. [...] performance characteri stics 03/31/2022 DRBX determined by [facility] in a manner consistent with CLIA [...] Interpretation FINAL DIAGNOSIS 04/14/2022 2:51 PM CDT DOMINIKX Kidney, needle biopsy: ??1) Acute tubular injury. [...] Organization Address City/State/ZIP Code Phon e Number [facility] - [address] [place], [place] [address] [facility] [place] [address] Laboratories-[facility] [address] APTT (Activated Partial Thromboplastin Time) (03/28/2022 9:53 AM CDT) P athologist Signature Activated 28 25 - 37 sec 03/28/2022 DTL Partial 10:39 AM CDT Thrombopl Time, P Specimen Anatomical Collection Method Collection Time Receive d Time (Source) Location / / Volume Laterality Blood (Blood, 03/28/2022 9:53 AM 09/23/20 22 Venous) CDT 10:23 AM CDT Becka Quach M.D., Ph.D. LAB BLOOD ADD-ON Performing Organization Address City/State/ZIP Code Phon e Number [facility] - [address] [place] [address] [facility] [address] Laboratories-[facility] 200 [facility] Prothrombin Time (PT) (03/28/2022 9:53 AM CDT) [...] Laterality Blood (Blood, 03/28/2022 9:53 AM 03/28/20 Venous) CDT 10:23 AM CDT Becka Quach M.D., Ph.D. LAB BLOOD ADD-ON Performing Organization Address City/[facility] Code Phon e Number [facility] - [address] [place] [address] [facility] [place] [address] Laboratories-[facility] 200 [facility] (ABNORMAL) CBC with Differential, Blood (03/28/2022 9:53 [...] Organization Address City/State/ZIP Code Phon e Number [facility] - [address] [place], [place] [address] [facility] [place] [address] Laboratories-[facility] [address] from Last 3 Months Insurance Payer Benefit Plan Subscriber ID Effective Dates Phone Address Type / Group [facility] CARE [id number] 2021-Presen [phone] [address] Medicaid HMO t 5 [place] [address]
--- OUTSIDE RECORDS SUMMARY | 2022-04-29 13:10 | XMS_ITS | Encounter Summary ---
:1960 Author Organization [facility] Address [address] [place] [address] Care Team Providers Name Role Phone Unavailable Primary Care Provider Unavailable Encounter Details Date Type Department Care Team Description 03/28/2022 Hospital Encounter Department of Poncho Quach, Deandre kevin Renal Acute Laboratory Medicine Ayleen Jovel, (Acute K idney and Pathology, Ph.D. Injury) ([facility]) [place] [address] [place] [phone] [place] [address] [place], [place] (Work) [phone] Social History Tobacco Use [...] in (APTT), P Kidney Injury) the results ([facility]) section. PROTHROMBIN TIME (PT), Routine 03/28/2022 9:53 AM Failure Nona l Results for this P CDT Acute (Acute procedure are i n Kidney Injury) the results ([facility]) section. CBC WITH DIFFERENTIAL, Routine 03/28/2022 9:53 AM Failure Nona l Results for this B CDT Acute (Acute procedure are i n Kidney Injury) the results ([facility]) section. documented in this encounter Results (ABNORMAL) CBC with Differential, Blood (03/28/2022 9:53 AM CDT) [facility] Method Time Signature Hemoglobin 10.4 (L) [...] Ph.D. LAB BLOOD ADD-ON Performing Organization Address City/[facility] Phon e Number [facility] - [address] APTT (Activated Partial Thromboplastin Time) (03/28/2022 [...] Ph.D. LAB BLOOD ADD-ON Performing Organization Address City/[facility] Phon e Number [facility] - 200 [place] [address] [address] [facility] [place] [address] [address] Prothrombin Time (PT) (03/28/2022 9:53 AM [...] City/State/ZIP Code Phon e Number [facility] - [address] [place], [place] [address] [facility] [place] [place] [address] Laboratories-[facility] [address] documented in this encounter Visit Diagnoses Diagnosis Failure Renal Acute (Acute Kidney Injury ) (HCC) documented in this encounter
--- OUTSIDE RECORDS SUMMARY | 2022-04-29 13:10 | XMS_ITS | Encounter Summary ---
:1960 Author Organization [facility] Address [address] [place] [address] Care Team Providers Name Role Phone Unavailable Primary Care Provider Unavailable Reason for Referral Outpatient (Routine) - Closed Specialty Diagnoses / Procedures Referred By Contact Refer red To Contact Diagnoses Failure Renal Acute (Acute Kidney Injury) ([facility]) [facility] Kidney Biopsy Left or Right Ayleen, Ph.D. [address] [place] [address] Referral ID Status Reason Start Date Expiration Date Visits Requ ested Visits Authorized [id number] Closed 03/18/2022 03/18/2023 1 1 Reason for Visit Appointment Request (Routine) - Closed Specialty Diagnoses / Procedures Referred By Contact Refer red To Contact Nephrology and Hypertension Referral ID Status Reason Start Date Expiration Date Visits Requ ested Visits Authorized [id number] Closed 02/28/2022 02/28/2023 1 Encounter Details Date Type Department Care Team Description 03/18/2022 External Outreach Division of Esau Keene Renal Acute Nephrology and Ayleen Jovel, (Acute Kidney Hypertension in Ph.D. Injury) ([facility]) [place], [place] [address] [place] [address] (Primary Dx) [address] [place] [phone] [phone] Social History Tobacco Use Types Packs/Day Years [...] Quach M.D., Ph.D. CT CT Job ID: [id number] documented in this encounter Plan of Treatment [...] CDT Impressions 03/28/2022 1:57 PM CDT Ultrasound-guided di[place] kidney biopsy. NR Narrative 03/28/2022 1:57 PM [...] POST-PROCEDURE DIAGNOSIS: Renal dysfunct ion. IMPRESSION: Ultrasound-guided [place] kidney biopsy. NR Becka Quach M.D., Ph.D. IMG US PROCEDURES (ABNORMAL) CBC with Differential, Blood (03/28/2022 9:53 AM CDT) [facility] Method Time Signature Hemoglobin 10.4 (L) [...] City/State/ZIP Code Phon e Number [facility] - 200 [place], [place] [address] [facility] [place] [address] Laboratories-[facility] [address] [facility] APTT (Activated Partial Thromboplastin Time) (03/28/2022 9:53 [...] Ph.D. LAB BLOOD ADD-ON Performing Organization Address City/[facility] Phon e Number [facility] - [address] [place], [place] [address] [facility] [address] Laboratories-[facility] [address] Prothrombin Time (PT) (03/28/2022 [...] Ph.D. LAB BLOOD ADD-ON Performing Organization Address City/[facility] Phon e Number [facility] - [address] [place], [place] [address] [facility] [address] Laboratories[facility] [address] [facility] documented in this encounter Visit Diagnoses Diagnosis Failure Renal Acute (Acute Kidney Injury ) (HCC) - Primary Failure Renal Acute (Acute Kidney Injury ) (HCC) documented in this encounter
--- OUTSIDE RECORDS SUMMARY | 2022-04-29 13:10 | XMS_ITS | Encounter Summary ---
:1960 Author Organization [facility] Address [address] [place] [address] Care Team Providers Name Role Phone Unavailable Primary Care Provider Unavailable Reason for Visit Appointment Request (Routine) - Closed Specialty Diagnoses / Procedures Referred By Contact Refer red To Contact Nephrology and Hi Adams Hypertension M.D. [address] [place] [address] Referral ID Status Reason Start Date Expiration Date Visits Requ ested Visits Authorized [id number] Closed 01/10/2022 01/10/2023 1 Encounter Details Date Type Department Care Team Description 01/28/2022 External Outreach Division of Esau Keene Renal Acute (Acute Kidney Injury) (HCC) (Primary Dx); Nephrology and Ayleen Jovel, Chronic Kidne y Disease (CKD), Stage 3a Glomerular Filtration Rate (GFR) 45 To 59 (HCC) Hypertension in Ph.D. [place], [place] [address] [place] [address] [place] [phone] [phone] Social History Tobacco Use Types Packs/Day Years [...] resulted. The patient will contact his local processing associate as he is due to follow up with them to ask when it is safe to hold Plavix in preparation for kidney biopsy as he needs to be off Plav ix at least 7 days prior and to be off 7 days after kidney biopsy. All questions were answered. Nolvia Quach M.D., Ph.D. CT CT Job ID: [id number] Addendum: Lab work up was unremarkable. UA [...]
--- OUTSIDE RECORDS SUMMARY | 2022-04-29 13:10 | XMS_ITS | Encounter Summary ---
:1960 Author Organization [facility] Address [address] [place] [address] Care Team Providers Name Role Phone Unavailable Primary Care Provider Unavailable Encounter Details Date Type Department Care Team Description 02/25/2022 Clinical Communication Division of Nephrology Poncho Quach, and Hypertension in Ayleen Jovel, [place], [place] Ph.D. [address] [facility] [address] [place] [phone] Social History Tobacco Use Types Packs/Day Years [...]
--- OUTSIDE RECORDS SUMMARY | 2022-04-29 13:10 | XMS_ITS | Encounter Summary ---
:1960 Author Organization [facility] Address [address] [place] [address] Care Team Providers Name Role Phone Unavailable Primary Care Provider Unavailable Reason for Referral Outpatient (Routine) - Closed Specialty Diagnoses / Procedures Referred By Contact Refer red To Contact Diagnoses Failure Renal Acute (Acute Kidney Injury) (HCC) [facility] US Kidney Biopsy Left or Right Ayleen, Ph.D. [address] [place] [address] Referral ID Status Reason Start Date Expiration Date Visits Requ ested Visits Authorized [id number] Closed 03/18/2022 03/18/2023 1 1 Reason for Visit Auth/Cert Specialty Diagnoses / Procedures Referred By Contact Refer red To Contact Diagnoses Failure Renal Acute (Acute Kidney Injury) (HCC) Procedures US KIDNEY BIOPSY LEFT OR RIGHT Referral ID Status Reason Start Date Expiration Date Visits Requ ested Visits Authorized [id number] 1 1 Encounter Details Date Type Department Care Team Description 03/28/2022 Hospital Encounter Outpatient Surgery Nia Keene Renal Acute Unit in Becka Sweet M.D., (Acute Ki dney [place] Ph.D. Injury) (HCC) [address] [facility] [address] [place] [phone] [phone] Social History Tobacco Use Types Packs/Day Years [...] CDT Impressions 03/28/2022 1:57 PM CDT Ultrasound-guided [place] kidney biopsy. NR Narrative 03/28/2022 1:57 PM [...] POST-PROCEDURE DIAGNOSIS: Renal dysfunct ion. IMPRESSION: Ultrasound-guided k[place] kidney biopsy. NR Becka Quach M.D., Ph.D. [...] performance characteri stics 03/31/2022 DRBX determined by [facility] in a manner consistent with CLIA [...] Organization Address City/State/ZIP Code Phon e Number [facility] - [address] [place], [place] [address] [facility] [place] [address] Laboratories-[facility] [address] documented in this [...]
--- OUTSIDE RECORDS SUMMARY | 2022-04-29 13:10 | XMS_ITS | Encounter Summary ---
:1960 Author Organization [facility] Address [address] [place] [address] Care Team Providers Name Role Phone Unavailable Primary Care Provider Unavailable Reason for Visit Reason Comments Follow-up Post Procedure Follow Up Blank ne Call Encounter Details Date Type Department Care Team Description 04/01/2022 Clinical Communication Department of Valentin Espinosa (Post Radiology, Carmencita Weaver M.D. Procedure Follow Up [facility] in [address] Phone Call) [facility] [address] [address] [facility] [phone] [place], [place] (Work) [phone] Social History Tobacco Use Types Packs/Day Years Used Date Smoking Tobacco: Former Cigarettes Smokeless Tobacco: Current Alcohol Use Standard Drinks/Week Comments Yes 0 (1 standard drink = 0.6 oz pure alcoho l) 9 cocktails per week Sex Assigned at Date Recorded Not on file documented as of this encounter Miscellaneous Notes Telephone Encounter - Phylicia Scott RLewis - 04/01/2022 8:05 AM CDT Unable to [...]
[2022-04-29 16:27] LABS: Creatinine Urine 72.5 mg/dL
[2022-04-29 16:28] LABS: Microalbumin Creatinine Ratio 60 mg/g (0-30); Microalbumin Urine 5 mg/dL
== END 2022-04-29 13:36 | disposition home or self-care (01) ==
PROVIDERS: PCP Family Medicine; Visit Provider Internal Medicine Nephrology
DX: I10 Essential (primary) hypertension (principal); N17.9 Acute kidney failure, unspecified; N18.9 Chronic kidney disease, unspecified
CPT/HCPCS: 82043; 82570

== ENCOUNTER 2022-06-06 10:30 | Outpatient (CLI) | payer MEDICAID, SELFPAY ==
--- OUTSIDE RECORDS SUMMARY | 2022-06-06 09:09 | XMS_ITS | Clinical Summary ---
:1960 Author Organization [facility] Address [address] [place] [address] Care Team Providers Name Role Phone Unavailable Primary Care Provider Unavailable Source Comments Patient records contain information from all sites at [facility]. For routine questions regarding patient records, call [phone] during business hours, M-F 8:00 AM - 5:00 PM Central Time. Record requests for emergency care only can be directed to [phone] at any time.[facility] Allergies No known active allergies Medications [...] Encounters Date Type Specialty Care Team Description 04/30/2022 External Outreach Nephrology and [place] Chronic Kidney Disease (CKD), Stage 3b Glomerular Filtration Rate (GFR) 30 To 44 (HCC) (Primary Dx); Hypertension Becka Quach, Hypertension Essential Primary; MTerrence, Ph.D. Failure Renal A cute (Acute Kidney Injury) ([facility]); Hypercalcemia 04/01/2022 Clinical Radiology Jesús, Valentin Follow-up (Leelee Weaver M.D. Procedure Foll ow Up Phone Call) 03/28/2022 Hospital Encounter [place] Failure R enal Acute Becka Quach, (Acute Kidney M.D., Ph.D. Injury) (HCC) 03/28/2022 Hospital Encounter Laboratory Medicine [place] Fa ilure Renal Acute Becka Quach, (Acute Kidney M.D., Ph.D. Injury) (HCC) 03/18/2022 External Outreach Nephrology and [place] Failure Renal Acute Hypertension Becka Quach, (Acute Kidney M.D., Ph.D. Injury) ([facility]) (Primary Dx) from Last 3 Months Social History Tobacco [...] C Screening 1960 Tobacco Cessation counseling 1960 Depression Screening (Annual 07/06/2021 PHQ-2) COVID-19 Vaccine (4 - Booster for 10/29/2021 09/03/2021, , Pfizer series) 02/05/2021 Sodium Level 03/04/2022 03/04/2021 Creatinine Level 03/08/2022 03/08/2021, 03/07/2021, 03/04/2021, Additional history exists Potassium Level 03/08/2022 03/08/2021, 03/04/2021 Pneumococcal vaccine (0-64 years) 03/11/2023 03/11/2022 (2 - PCV) Fasting Glucose for Diabetes 03/04/2024 03/04/2021 Screening Lipid (Cholesterol) Screening 03/04/2026 03/04/2021 DTaP,Tdap,and Td Vaccines (2 - Td 06/13/2031 06/13/2021 or Tdap) Influenza Vaccine Completed 04/30/2022, 04/22/2021, 08/17/2017 Zoster Vaccines Completed 05/27/2022, 04/01/2022 Procedures Procedure Name Priority Date/Time Associated Comments Diagnosis US KIDNEY BIOPSY LEFT RAD - Routine 03/28/2022 1:56 Failure Renal R esults for OR RIGHT (most inpatients PM CDT Acute (Acute this proced ure and all Kidney Injury) are in the outpatients) ([facility]) results section. RENAL PATHOLOGY Timed 03/28/2022 1:43 Results f or PM CDT this procedure are in the results section. CBC WITH Routine 03/28/2022 9:53 Failure Renal Results for DIFFERENTIAL, B AM CDT Acute (Acute this procedu re Kidney Injury) are in the ([facility]) results section. ACTIVATED PARTIAL Routine 03/28/2022 9:53 Failure Renal Result s for THROMBOPLASTIN TIME AM CDT Acute (Acute this pro cedure (APTT), P Kidney Injury) are in the ([facility]) results section. PROTHROMBIN TIME Routine 03/28/2022 9:53 Failure Renal Results for (PT), P AM CDT Acute (Acute this procedure Kidney Injury) are in the ([facility]) results section. from Last 3 [...] CDT Impressions 03/28/2022 1:57 PM CDT Ultrasound-guided [place] kidney biopsy. NR Narrative 03/28/2022 1:57 PM [...] POST-PROCEDURE DIAGNOSIS: Renal dysfunct ion. IMPRESSION: Ultrasound-guided [place] kidney biopsy. NR Becka Quach M.D., Ph.D. [...] stics 03/31/2022 DRBX determined by [facility] in a manner consistent with CLIA [...] PATH RENAL ORDER RADHA Performing Organization Address City/[facility]/ZIP Code Phon e Number [facility] - [address] [place], [place] [address] [facility] [place] [address] [facility] 200 [facility] APTT (Activated Partial Thromboplastin Time) (03/28/2022 9:53 [...] Organization Address City/State/ZIP Code Phon e Number [facility] - [address] [place] [address] [facility] [place] [address] [address] Prothrombin Time (PT) (03/28/2022 9:53 AM [...] Ph.D. LAB BLOOD ADD-ON Performing Organization Address City/State/[facility] Phon e Number [facility] - [address] [place] [address] [place] [address] [address] (ABNORMAL) CBC with Differential, Blood (03/28/2022 [...] Organization Address City/State/ZIP Code Phon e Number [facility] - [address] [place], [place] [address] [facility] [place] [address] Laboratories-[facility] [address] from Last 3 Months Insurance Payer Benefit Plan Subscriber ID Effective Dates Phone Address Type / Group [facility] [id number] 2021-Alonso [phone] [address] Medicaid HMO t 5 [place] [address]
--- OUTSIDE RECORDS SUMMARY | 2022-06-06 09:09 | XMS_ITS | Encounter Summary ---
:1960 Author Organization [facility] Address [address] [place] [address] Care Team Providers Name Role Phone Unavailable Primary Care Provider Unavailable Reason for Visit Appointment Request (Routine) - Closed Specialty Diagnoses / Procedures Referred By Contact Refer red To Contact Nephrology and Hi Adams Hypertension M.D. [address] [place] [address] Referral ID Status Reason Start Date Expiration Date Visits Requ ested Visits Authorized [id number] Closed 01/10/2022 01/10/2023 1 Encounter Details Date Type Department Care Team Description 01/28/2022 External Outreach Division of Esau Keene Renal Acute (Acute Kidney Injury) (HCC) (Primary Dx); Nephrology and Ayleen Jovel, Chronic Kidne y Disease (CKD), Stage 3a Glomerular Filtration Rate (GFR) 45 To 59 (HCC) Hypertension in Ph.D. [place], [place] [address] [place] [address] [place] [address] [phone] Social History Tobacco Use Types Packs/Day Years [...] resulted. 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 All questions were answered. Nolvia Quach M.D., Ph.D. CT CT Job ID: [id number] Addendum: Lab work up was unremarkable. [...]
--- OUTSIDE RECORDS SUMMARY | 2022-06-06 09:09 | XMS_ITS | Encounter Summary ---
:1960 Author Organization [facility] Address [address] [place] [address] Care Team Providers Name Role Phone Unavailable Primary Care Provider Unavailable Encounter Details Date Type Department Care Team Description 02/25/2022 Clinical Communication Division of Nephrology [place] Quach, and Hypertension in Ayleen Jovel, [place], [place] Ph.D. [address] [facility] [address] [place] [phone] [phone] Social History Tobacco Use Types Packs/Day Years [...]
--- OUTSIDE RECORDS SUMMARY | 2022-06-06 09:09 | XMS_ITS | Encounter Summary ---
:1960 Author Organization [facility] Address [address] [place] [address] Care Team Providers Name Role Phone Unavailable Primary Care Provider Unavailable Encounter Details Date Type Department Care Team Description 02/11/2022 Clinical Communication Division of Nephrology [place] Quach, and Hypertension in Ayleen Jovel, [place], [place] Ph.D. [address] [facility] [address] [place] [phone] [phone] Social History Tobacco Use Types Packs/Day Years Used Date Smoking Tobacco: Never Assessed Sex Assigned at Date Recorded Not on file documented as of this encounter Plan of Treatment Not on filedocumented as of this encounter Visit Diagnoses Not on filedocumented in this encounter
--- OUTSIDE RECORDS SUMMARY | 2022-06-06 09:09 | XMS_ITS | Encounter Summary ---
:1960 Author Organization [facility] Address [address] [place] [address] Care Team Providers Name Role Phone Unavailable Primary Care Provider Unavailable Reason for Referral Outpatient (Routine) - Closed Specialty Diagnoses / Procedures Referred By Contact Refer red To Contact Diagnoses Failure Renal Acute (Acute Kidney Injury) (HCC) [facility] US Kidney Biopsy Left or Right Ayleen, Ph.D. [address] [place] [address] Referral ID Status Reason Start Date Expiration Date Visits Requ ested Visits Authorized [id number] Closed 03/18/2022 03/18/2023 1 1 Reason for Visit Auth/Cert Specialty Diagnoses / Procedures Referred By Contact Refer red To Contact Diagnoses Failure Renal Acute (Acute Kidney Injury) (HCC) Procedures US KIDNEY BIOPSY LEFT OR RIGHT Referral ID Status Reason Start Date Expiration Date Visits Requ ested Visits Authorized [id number] 1 1 Encounter Details Date Type Department Care Team Description 03/28/2022 Hospital Encounter Outpatient Surgery Nia Keene Renal Acute Unit in Becka Sweet M.D., (Acute Ki dney [place] Ph.D. Injury) (HCC) [address] [facility] [address] [place] [phone] [phone] Social History Tobacco Use Types Packs/Day Years [...] CDT Impressions 03/28/2022 1:57 PM CDT Ultrasound-guided [place] kidney biopsy. NR Narrative 03/28/2022 1:57 PM [...] POST-PROCEDURE DIAGNOSIS: Renal dysfunct ion. IMPRESSION: Ultrasound-guided [place] kidney biopsy. NR Becka Quach M.D., Ph.D. [...] performance characteri stics 03/31/2022 DRBX determined by [facility] in a manner consistent with CLIA 3:52 [...] Address City/State/ZIP Code Phon e Number [facility] - [address] [place], [place] [address] [facility] [address] Laboratories-[facility] [address] documented in [...]
--- OUTSIDE RECORDS SUMMARY | 2022-06-06 09:09 | XMS_ITS | Encounter Summary ---
:1960 Author Organization [facility] Address [address] [place] [address] Care Team Providers Name Role Phone Unavailable Primary Care Provider Unavailable Reason for Referral Outpatient (Routine) - Closed Specialty Diagnoses / Procedures Referred By Contact Refer red To Contact Diagnoses Failure Renal Acute (Acute Kidney Injury) ([facility]) [facility] Procedures US Kidney Biopsy Left or Right Ayleen, Ph.D. [address] [place] [address] Referral ID Status Reason Start Date Expiration Date Visits Requ ested Visits Authorized [id number] Closed 03/18/2022 03/18/2023 1 1 Reason for Visit Appointment Request (Routine) - Closed Specialty Diagnoses / Procedures Referred By Contact Refer red To Contact Nephrology and Hypertension Referral ID Status Reason Start Date Expiration Date Visits Requ ested Visits Authorized [id number] Closed 02/28/2022 02/28/2023 1 Encounter Details Date Type Department Care Team Description 03/18/2022 External Outreach Division of Esau Keene Renal Acute Nephrology and Ayleen Jovel, (Acute Kidney Hypertension in Ph.D. Injury) ([facility]) [place], [place] [address] [place] [address] (Primary Dx) [address] [place] [address] [phone] Social History Tobacco Use Types Packs/Day Years [...] Quach M.D., Ph.D. CT CT Job ID: [id number] documented in this encounter Plan of Treatment [...] CDT Impressions 03/28/2022 1:57 PM CDT Ultrasound-guided [place] kidney biopsy. NR Narrative 03/28/2022 1:57 PM [...] POST-PROCEDURE DIAGNOSIS: Renal dysfunct ion. IMPRESSION: Ultrasound-guided [place] kidney biopsy. NR Becka Quach M.D., Ph.D. IMG US PROCEDURES (ABNORMAL) CBC with Differential, Blood (03/28/2022 9:53 AM CDT) [facility] Method Time Signature Hemoglobin 10.4 (L) 13.2 [...] Organization Address City/State/ZIP Code Phon e Number [facility] - 200 [place], [place] [address] [facility] [place] [address] Laboratories-[facility] [address] [facility] APTT (Activated Partial Thromboplastin Time) (03/28/2022 [...] Ph.D. LAB BLOOD ADD-ON Performing Organization Address City/[facility] Phon e Number [facility] - [address] [place], [place] [address] [facility] [place] [address] Laboratories-[facility] [address] Prothrombin Time (PT) (03/28/2022 [...] Ph.D. LAB BLOOD ADD-ON Performing Organization Address City/[facility] Phon e Number [facility] - [address] [place], [place] [address] [facility] [place] [address] Laboratories-[facility] [address] [facility] documented in this encounter Visit Diagnoses Diagnosis Failure Renal Acute (Acute Kidney Injury ) (HCC) - Primary Failure Renal Acute (Acute Kidney Injury ) (HCC) documented in this encounter
--- OUTSIDE RECORDS SUMMARY | 2022-06-06 09:09 | XMS_ITS | Encounter Summary ---
:1960 Author Organization [facility] Address [address] [place] [address] Care Team Providers Name Role Phone Unavailable Primary Care Provider Unavailable Reason for Visit Reason Comments Follow-up Post Procedure Follow Up Blank ne Call Encounter Details Date Type Department Care Team Description 04/01/2022 Clinical Communication Department of Valentin Espinosa (Post Radiology, Carmencita Weaver M.D. Procedure Follow Up [facility] in [address] Phone Call) [facility] [address] [address] [facility] [phone] [place], [place] (Work) [phone] Social History Tobacco Use [...]
--- OUTSIDE RECORDS SUMMARY | 2022-06-06 09:09 | XMS_ITS | Encounter Summary ---
:1960 Author Organization [facility] Address [address] [place] [address] Care Team Providers Name Role Phone Unavailable Primary Care Provider Unavailable Encounter Details Date Type Department Care Team Description 03/28/2022 Hospital Encounter Department of [place] Quach, Deandre kevin Renal Acute Laboratory Medicine Ayleen Jovel, (Acute K idney and Pathology, Ph.D. Injury) ([facility]) [place], [place] [address] [place] [phone] [place] [address] [place], [place] (Work) [phone] Social History Tobacco Use [...] in (APTT), P Kidney Injury) the results ([facility]) section. PROTHROMBIN TIME (PT), Routine 03/28/2022 9:53 AM Failure Nona l Results for this P CDT Acute (Acute procedure are i n Kidney Injury) the results ([facility]) section. CBC WITH DIFFERENTIAL, Routine 03/28/2022 9:53 AM Failure Nona l Results for this B CDT Acute (Acute procedure are i n Kidney Injury) the results ([facility]) section. documented in this encounter Results (ABNORMAL) CBC with Differential, Blood (03/28/2022 9:53 AM CDT) [facility] Method Time Signature Hemoglobin 10.4 (L) [...] Ph.D. LAB BLOOD ADD-ON Performing Organization Address City/[facility] Phon e Number [facility] - [address] APTT (Activated Partial Thromboplastin Time) (03/28/2022 [...] Ph.D. LAB BLOOD ADD-ON Performing Organization Address City/[facility] Phon e Number [facility] - 200 [place] [address] [address] [facility] [place] [address] [address] Prothrombin Time (PT) (03/28/2022 9:53 AM [...] Address City/State/ZIP Code Phon e Number [facility] - [address] [place], [place] [address] [facility] [address] Laboratories-[facility] [address] documented in this encounter Visit Diagnoses Diagnosis Failure Renal Acute (Acute Kidney Injury ) (HCC) documented in this encounter
--- OUTSIDE RECORDS SUMMARY | 2022-06-06 09:09 | XMS_ITS | Encounter Summary ---
:1960 Author Organization [facility] Address [address] [place] [address] Care Team Providers Name Role Phone Unavailable Primary Care Provider Unavailable Reason for Visit Appointment Request (Routine) - Closed Specialty Diagnoses / Procedures Referred By Contact Refer red To Contact Nephrology and Hypertension Referral ID Status Reason Start Date Expiration Date Visits Requ ested Visits Authorized [id number] Closed 04/04/2022 04/04/2023 1 Encounter Details Date Type Department Care Team Description 04/30/2022 External Outreach Division of Keshia Keene Kidney Disease (CKD), Stage 3b Glomerular Filtration Rate (GFR) 30 To 44 (HCC) (Primary Dx); Nephrology and Ayleen Jovel, Hypertension Essential Primary; Hypertension in Ph.D. Failure Renal Acute (Acute Kidney Injury ) (HCC); [place], [place] [address] [facility] Hypercalcemia [address] [place] [phone] [phone] Social History Tobacco Use Types Packs/Day Years Used Date Smoking Tobacco: Former Cigarettes Smokeless Tobacco: Current Alcohol Use Standard Drinks/Week Comments Yes 0 (1 standard drink = 0.6 oz pure alcoho l) 9 cocktails per week Sex Assigned at Date Recorded Not on file documented as of this encounter Progress Notes Becka Keene M.D., Ph.D. - 04/30/2022 1:00 PM CDT PROGRESS NOTE SUBJECTIVE CHIEF COMPLAINT / REASON FOR VISIT Follow up CKD stage 3B HISTORY OF PRESENT ILLNESS Perico Huerta is a 61 y.o. man who is seen for follow up. He has history of coronary artery disease who is status post 4 stents in February 2021. On plavix, recently discontinued as he completed therapy. Also, history of longstanding hypertension, diagnosed in 1999. He recently had kidney biopsy done for evaluation of elevated creatinine. His baseline creatinine inDecember 2020 was 1.2 mg/dL. Since then, it increased and peaked around 2.9 mg/dL. No history of NSAIDs. He has noticed a decrease in his urinary output and difficulty to urinate with decreased urine stream. His ultrasound did not show any signs of urinary obstruction. His kidney biopsy showed arteriosclerosis, ATN and atheroembolus. He has hyperlipidemia and is beingtreated. He is doing well and does not have any current concerns. OBJECTIVE BP 110/68 pulse 70 DIAGNOSTICS I have reviewed available labs in detail with patient. ASSESSMENT / PLAN #1 Chronic Kidney Disease (CKD), Stage 3b Glomerular Filtration Rate (GFR) 30 To 44 (HCC) #2 Hypertension Essential Primary #3 Failure Renal Acute (Acute Kidney Injury) (HCC) #4 Hypercalcemia Patient is seen for follow up. His kidney function has stabilized. 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 We have extensively discussed about the stages of CKD and patient's current status. CKD likely related to HTN and cardiorenal physiology. We discussed about the importance of controlling protein concentration in urine by lowering the saltintake, controlling blood pressure, reducing weight. BP goal is systolic readings between 100-130 mmHg and diastolic readings between 60-80 mmHg. I have recommended patient to check BP regularly at home, to keep a record of blood pressure readings. If BPis still not at goal, medications should be adjusted. Currently at goal, no changes made on therapy today. He presents hypercalcemia. I have recommended him to stop vitamin D and calcium supplementation for now. We will repeat vitamin D levels in 6 months Return to clinic in 6 months documented in this encounter Plan of Treatment Not on filedocumented as of this encounter Visit Diagnoses Diagnosis Chronic Kidney Disease (CKD), Stage 3b G lomerular Filtration Rate (GFR) 30 To 44 (HCC) - Primary Hypertension Essential Primary Failure Renal Acute (Acute Kidney Injury ) (HCC) Hypercalcemia documented in this encounter
--- OUTSIDE RECORDS SUMMARY | 2022-06-06 09:10 | XMS_ITS | Clinical Summary ---
:1960 Author Organization [facility] [place] [address] Care Team Providers Name Role Phone Hi [...] mouth once Coronary artery disease daily. involving [place] coronary artery without angina pectoris, unspecified whether [place] or transplanted heart Active Problems Problem Noted [...] Samuel Wynn MD Follow Up 03/14/2022 Travel from Last 3 Months Social History [...] 1972 Depression screening for age 12+ 1973 HIV for age 15-65 1976 BMI (ht and wt on same day) [...] Phone Addre ss Type Group [employer] [employer]AN[employer]ISE PURCELL [id number] 2021-Present [address] [place] [address] Advance Directives Latest Code Status on File Code Status Date Activated Date Inactivated Comments Full Code 03/07/2021 8:55 AM 03/08/2021 12:47 PM Code Status Discussion: Discussed Care Teams Gambling Dealer Relationship Specialty Start Date End Date Hi Adams MD PCP - General Family Practice 02/12/211999 [place] [address]
[2022-06-06 11:40] LABS: Albumin* 4.5 g/dL (3.3-5.0); Chloride* 105 mmol/L (96-114)
[2022-06-06 11:41] LABS: Potassium* 5.2 mmol/L (3.6-5.1); Sodium* 138 mmol/L (135-149)
[2022-06-06 11:43] LABS: Alanine Aminotransferase* 27 U/L (4-50); Alkaline Phosphatase* 52 U/L (40-150); Aspartate Amino Transferase* 24 U/L (12-35); Bilirubin Total* 0.3 mg/dL (0.1-1.5); Blood Urea Nitrogen* 39 mg/dL (7-30); Carbon Dioxide* 26 mmol/L (20-32); Cholesterol* 174 mg/dL (90-199); Creatinine* 1.9 mg/dL (0.5-1.5); Estimated Glomerular Filt Rate 40 ml/min; Total Protein* 7.6 g/dL (6.0-8.3)
[2022-06-06 11:44] LABS: Calcium* 11.9 mg/dL (8.4-10.6); Glucose* 111 mg/dL (60-115); HDL Cholesterol* 58 mg/dL (>=40); LDL Cholesterol Calculated 93 mg/dL (<100); Triglycerides* 115 mg/dL (40-149)
[2022-06-06 12:12] LABS: PSA Screen* 0.63 ng/mL (0.10-4.00)
== END 2022-06-06 10:31 | disposition home or self-care (01) ==
PROVIDERS: PCP Family Medicine; Visit Provider Family Medicine
DX: E78.5 Hyperlipidemia, unspecified (principal); I25.10 Atherosclerotic heart disease of native coronary artery without angina pectoris; E66.9 Obesity, unspecified; I10 Essential (primary) hypertension; N18.9 Chronic kidney disease, unspecified; Z12.5 Encounter for screening for malignant neoplasm of prostate
CPT/HCPCS: 80053; 80061; 84153

== ENCOUNTER 2022-06-17 09:48 | Outpatient (CLI) | payer MEDICAID, SELFPAY ==
--- OUTSIDE RECORDS SUMMARY | 2022-06-17 09:56 | XMS_ITS | Encounter Summary ---
:1960 Author Organization [facility] Address [address] [place] [address] Care Team Providers Name Role Phone Unavailable Primary Care Provider Unavailable Reason for Visit Appointment Request (Routine) - Closed Specialty Diagnoses / Procedures Referred By Contact Refer red To Contact Nephrology and Hypertension Referral ID Status Reason Start Date Expiration Date Visits Requ ested Visits Authorized [id number] Closed 04/04/2022 04/04/2023 1 Encounter Details Date Type Department Care Team Description 04/30/2022 External Outreach Division of Keshia Keene Kidney Disease (CKD), Stage 3b Glomerular Filtration Rate (GFR) 30 To 44 (HCC) (Primary Dx); Nephrology and Ayleen Jovel, Hypertension Essential Primary; Hypertension in Ph.D. Failure Renal Acute (Acute Kidney Injury ) (HCC); [place], [place] [address] [facility] Hypercalcemia [address] [place] [address] [phone] Social History Tobacco Use Types Packs/Day Years [...]
--- OUTSIDE RECORDS SUMMARY | 2022-06-17 09:56 | XMS_ITS | Encounter Summary ---
:1960 Author Organization [facility] Address [address] [place] [address] Care Team Providers Name Role Phone Unavailable Primary Care Provider Unavailable Reason for Visit Reason Comments Follow-up Post Procedure Follow Up Blank ne Call Encounter Details Date Type Department Care Team Description 04/01/2022 Clinical Communication Department of Valentin Espinosa (Post Radiology, Carmencita Weaver M.D. Procedure Follow Up [facility] in [address] Phone Call) [facility] [address] [address] [facility] [phone] [place], [place] (Work) [phone] Social History Tobacco Use [...]
--- OUTSIDE RECORDS SUMMARY | 2022-06-17 09:56 | XMS_ITS | Clinical Summary ---
:1960 Author Organization [facility] Address [address] [place] [address] Care Team Providers Name Role Phone Unavailable Primary Care Provider Unavailable Source Comments Patient records contain information from all sites at [facility]. For routine questions regarding patient records, call [phone] during business hours, M-F 8:00 AM - 5:00 PM Central Time. Record requests for emergency care only can be directed to [phone] at any time.[facility] Allergies No known active allergies Medications [...] Failure Renal A cute (Acute Kidney Injury) ([facility]); Hypercalcemia 04/01/2022 Clinical Radiology Jesús, Valentin Follow-up [...] Becka Quach, (Acute Kidney M.D., Ph.D. Injury) ([facility]) (Primary Dx) from Last 3 Months Social [...] all Kidney Injury) are in the outpatients) ([facility]) results section. RENAL PATHOLOGY Timed 03/28/2022 1:43 Results f or PM CDT this procedure are in the results section. CBC WITH Routine 03/28/2022 9:53 Failure Renal Results for DIFFERENTIAL, B AM CDT Acute (Acute this procedu re Kidney Injury) are in the ([facility]) results section. ACTIVATED PARTIAL Routine 03/28/2022 9:53 Failure Renal Result s for THROMBOPLASTIN TIME AM CDT Acute (Acute this pro cedure (APTT), P Kidney Injury) are in the ([facility]) results section. PROTHROMBIN TIME Routine 03/28/2022 9:53 Failure Renal Results for (PT), P AM CDT Acute (Acute this procedure Kidney Injury) are in the ([facility]) results section. from Last 3 Months Results US Kidney Biopsy Left or Right (03/28/2022 1:56 PM CDT) Anatomical Region Laterality Modality Abdomen, Renal, Ultrasound RST LOS, Ultrasound ARZ LOS, N/A Ultrasound Procedure FLA LOS, Abdominal FLA LOS, Procedural Specimen (Source) Anatomical Collection Method Collection Time Re ceived Time Location / / Volume Laterality 03/28/2022 1:56 PM CDT Impressions 03/28/2022 1:57 PM CDT Ultrasound-guided [place] kidney biopsy. NR Narrative 03/28/2022 1:57 PM [...] POST-PROCEDURE DIAGNOSIS: Renal dysfunct ion. IMPRESSION: Ultrasound-guided [place] kidney biopsy. NR Becka Quach M.D., Ph.D. [...] performance characteri stics 03/31/2022 DRBX determined by [facility] in a manner consistent with CLIA [...] PATH RENAL ORDER RADHA Performing Organization Address City/[facility]/ZIP Code Phon e Number [facility] - [address] [place], [place] [address] [facility] [place] [address] [facility] 200 [facility] APTT (Activated Partial Thromboplastin Time) (03/28/2022 [...] Organization Address City/State/ZIP Code Phon e Number [facility] - [address] [place] [address] [facility] [place] [address] Laboratories[address] Prothrombin Time (PT) (03/28/2022 9:53 AM [...] Ph.D. LAB BLOOD ADD-ON Performing Organization Address City/State/[facility] Phon e Number [facility] - [address] [place] [address] 05 [place] [address] [address] (ABNORMAL) CBC with Differential, Blood (03/28/2022 [...] Organization Address City/State/ZIP Code Phon e Number [facility] - [address] [place], [place] [address] [facility] [place] [address] Laboratories-[facility] [address] from Last 3 Months Insurance Payer Benefit Plan Subscriber ID Effective Dates Phone Address Type / Group [facility] [id number] 2021-Alonso [phone] [address] Medicaid HMO t 5 [place] [address]
--- OUTSIDE RECORDS SUMMARY | 2022-06-17 09:56 | XMS_ITS | Encounter Summary ---
:1960 Author Organization [facility] Address [address] [place] [address] Care Team Providers Name Role Phone Unavailable Primary Care Provider Unavailable Encounter Details Date Type Department Care Team Description 03/28/2022 Hospital Encounter Department of Poncho Quach, Deandre kevin Renal Acute Laboratory Medicine Ayleen Jovel, (Acute K idney and Pathology, Ph.D. Injury) ([facility]) [place], [place] [address] [place] [phone] [place] [address] [place], [place] (Work) [phone] Social History Tobacco Use [...] P Kidney Injury) the results ([facility]) section. PROTHROMBIN TIME (PT), Routine 03/28/2022 9:53 AM Failure Nona l Results for this P CDT Acute (Acute procedure are i n Kidney Injury) the results ([facility]) section. CBC WITH DIFFERENTIAL, Routine 03/28/2022 9:53 AM Failure Nona l Results for this B CDT Acute (Acute procedure are i n Kidney Injury) the results ([facility]) section. documented in this encounter Results (ABNORMAL) CBC with Differential, Blood (03/28/2022 9:53 AM CDT) [facility] Method Time Signature Hemoglobin 10.4 [...] Ph.D. LAB BLOOD ADD-ON Performing Organization Address City/[facility] Phon e Number [facility] - [address] APTT (Activated Partial Thromboplastin Time) (03/28/2022 [...] Ph.D. LAB BLOOD ADD-ON Performing Organization Address City/[facility] Phon e Number [facility] - 200 [place] [address] [facility] [place] [address] [address] Prothrombin Time (PT) (03/28/2022 9:53 AM [...] Organization Address City/State/ZIP Code Phon e Number [facility] - [address] [place], [place] [address] [facility] [place] [address] Laboratories-[facility] [address] documented in this encounter Visit Diagnoses Diagnosis Failure Renal Acute (Acute Kidney Injury ) (HCC) documented in this encounter
--- OUTSIDE RECORDS SUMMARY | 2022-06-17 09:57 | XMS_ITS | Encounter Summary ---
:1960 Author Organization [facility] Address [address] [place] [address] Care Team Providers Name Role Phone Unavailable Primary Care Provider Unavailable Encounter Details Date Type Department Care Team Description 02/11/2022 Clinical Communication Division of Nephrology Poncho Quach, and Hypertension in Ayleen Jovel, [place], [place] Ph.D. [address] [facility] [address] [place] [phone] Social History Tobacco Use Types Packs/Day Years Used Date Smoking Tobacco: Never Assessed Sex Assigned at Date Recorded Not on file documented as of this encounter Plan of Treatment Not on filedocumented as of this encounter Visit Diagnoses Not on filedocumented in this encounter
--- OUTSIDE RECORDS SUMMARY | 2022-06-17 09:57 | XMS_ITS | Encounter Summary ---
:1960 Author Organization [facility] Address [address] [place] [address] Care Team Providers Name Role Phone Unavailable Primary Care Provider Unavailable Reason for Referral Outpatient (Routine) - Closed Specialty Diagnoses / Procedures Referred By Contact Refer red To Contact Diagnoses Failure Renal Acute (Acute Kidney Injury) (HCC) [facility] Procedures US Kidney Biopsy Left or Right Ayleen, Ph.D. [address] [place] [address] Referral ID Status Reason Start Date Expiration Date Visits Requ ested Visits Authorized [id number] Closed 03/18/2022 03/18/2023 1 1 Reason for Visit Auth/Cert Specialty Diagnoses / Procedures Referred By Contact Refer red To Contact Diagnoses Failure Renal Acute (Acute Kidney Injury) (HCC) Procedures US KIDNEY BIOPSY LEFT OR RIGHT Referral ID Status Reason Start Date Expiration Date Visits Requ ested Visits Authorized [id number] 1 1 Encounter Details Date Type Department Care Team Description 03/28/2022 Hospital Encounter Outpatient Surgery Nia Keene Renal Acute Unit in Becka Sweet M.D., (Acute Ki dney [place] Ph.D. Injury) (HCC) [address] [facility] [address] [place] [phone] Social History Tobacco Use Types Packs/Day Years [...] CDT Impressions 03/28/2022 1:57 PM CDT Ultrasound-guided lime kidney biopsy. NR Narrative 03/28/2022 1:57 PM [...] POST-PROCEDURE DIAGNOSIS: Renal dysfunct ion. IMPRESSION: Ultrasound-guided lime kidney biopsy. NR Becka Quach M.D., Ph.D. [...] performance characteri stics 03/31/2022 DRBX determined by [facility] in a manner consistent with [...] Organization Address City/State/ZIP Code Phon e Number [facility] - [address] [place], [place] [address] [facility] [place] [place] [address] Laboratories-[facility] [address] documented in [...]
--- OUTSIDE RECORDS SUMMARY | 2022-06-17 09:57 | XMS_ITS | Encounter Summary ---
:1960 Author Organization [facility] Address [address] [place] [address] Care Team Providers Name Role Phone Unavailable Primary Care Provider Unavailable Reason for Referral Outpatient (Routine) - Closed Specialty Diagnoses / Procedures Referred By Contact Refer red To Contact Diagnoses Failure Renal Acute (Acute Kidney Injury) ([facility]) [facility] Procedures US Kidney Biopsy Left or Right Ayleen, Ph.D. [address] [place] [address] Referral ID Status Reason Start Date Expiration Date Visits Requ ested Visits Authorized [id number] Closed 03/18/2022 03/18/2023 1 1 Reason for Visit Appointment Request (Routine) - Closed Specialty Diagnoses / Procedures Referred By Contact Refer red To Contact Nephrology and Hypertension Referral ID Status Reason Start Date Expiration Date Visits Requ ested Visits Authorized [id number] Closed 02/28/2022 02/28/2023 1 Encounter Details Date Type Department Care Team Description 03/18/2022 External Outreach Division of Esau Keene Renal Acute Nephrology and Ayleen Jovel, (Acute Kidney Hypertension in Ph.D. Injury) ([facility]) [place], [place] [address] [place] [address] (Primary Dx) [address] [place] [phone] [phone] Social History Tobacco Use Types Packs/Day Years [...] Quach M.D., Ph.D. CT CT Job ID: [id number] documented in this encounter Plan of Treatment [...] CDT Impressions 03/28/2022 1:57 PM CDT Ultrasound-guided [place] kidney biopsy. NR Narrative 03/28/2022 1:57 PM [...] POST-PROCEDURE DIAGNOSIS: Renal dysfunct ion. IMPRESSION: Ultrasound-guided [place] kidney biopsy. NR Becka Quach M.D., Ph.D. IMG US PROCEDURES (ABNORMAL) CBC with Differential, Blood (03/28/2022 9:53 AM CDT) [facility] Method Time Signature Hemoglobin 10.4 (L) [...] Organization Address City/State/ZIP Code Phon e Number [facility] - 200 [place], [place] [address] [facility] [place] [address] Laboratories-[facility] [address] [facility] APTT (Activated Partial Thromboplastin Time) (03/28/2022 [...] Ph.D. LAB BLOOD ADD-ON Performing Organization Address City/[facility] Phon e Number [facility] - [address] [place], [place] [address] [facility] [place] [place] [address] Laboratories-[facility] [address] Prothrombin Time [...] Ph.D. LAB BLOOD ADD-ON Performing Organization Address City/[facility] Phon e Number [facility] - [address] [place], [place] [address] [facility] [place] [address] Laboratories-[facility] [address] [facility] documented in this encounter Visit Diagnoses Diagnosis Failure Renal Acute (Acute Kidney Injury ) (HCC) - Primary Failure Renal Acute (Acute Kidney Injury ) (HCC) documented in this encounter
--- OUTSIDE RECORDS SUMMARY | 2022-06-17 09:57 | XMS_ITS | Clinical Summary ---
:1960 Author Organization [facility] [place] [address] Care Team Providers Name Role Phone Hi [...] mouth once Coronary artery disease daily. involving [place] coronary artery without angina pectoris, unspecified whether [place] or transplanted heart Active Problems Problem Noted [...] HYPERTENSION - ESSENTIAL 11/14/2002 Hx TOBACCO USE Social History Tobacco Use Types Packs/Day Years Used Date Smoking Tobacco: Former Cigarettes 1 Smokeless Tobacco: Never Comments: quit 8 years ago Alcohol Use Standard Drinks/Week Comments Yes 14 (1 standard drink = 0.6 oz pure alcoh ol) 2 cocktails per night Sex Assigned at Date Recorded Not on [...] ss Type Group [employer] [facility] [place] [id number] 2021-Present [address] [place] [address] Advance Directives Latest Code Status on File Code Status Date Activated Date Inactivated Comments Full Code 03/07/2021 8:55 AM 03/08/2021 12:47 PM Question Answer Comments Code Status Discussion: Discussed Care Teams Diving Coach Relationship Specialty Start Date End Date Hi Adams MD PCP - General Family Practice 02/12/211999 [place] [id number]
--- OUTSIDE RECORDS SUMMARY | 2022-06-17 09:57 | XMS_ITS | Encounter Summary ---
:1960 Author Organization [facility] Address [address] [place] [address] Care Team Providers Name Role Phone Unavailable Primary Care Provider Unavailable Encounter Details Date Type Department Care Team Description 02/25/2022 Clinical Communication Division of Nephrology Poncho Quach, and Hypertension in Ayleen Jovel, [place], [place] Ph.D. [address] [facility] [address] [place] [phone] Social History Tobacco Use Types Packs/Day Years [...]
--- OUTSIDE RECORDS SUMMARY | 2022-06-17 09:57 | XMS_ITS | Encounter Summary ---
:1960 Author Organization [facility] Address [address] [place] [address] Care Team Providers Name Role Phone Unavailable Primary Care Provider Unavailable Reason for Visit Appointment Request (Routine) - Closed Specialty Diagnoses / Procedures Referred By Contact Refer red To Contact Nephrology and Hi Adams Hypertension M.D. [address] [place] [address] Referral ID Status Reason Start Date Expiration Date Visits Requ ested Visits Authorized [id number] Closed 01/10/2022 01/10/2023 1 Encounter Details Date Type Department Care Team Description 01/28/2022 External Outreach Division of Esau Keene Renal Acute (Acute Kidney Injury) (HCC) (Primary Dx); Nephrology and Ayleen Jovel, Chronic Kidne y Disease (CKD), Stage 3a Glomerular Filtration Rate (GFR) 45 To 59 (HCC) Hypertension in Ph.D. [place], [place] [address] [place] [address] [place] [phone] Social History Tobacco Use Types Packs/Day Years [...] resulted. The patient will contact his local [employer] agent as he is due to follow up with them to ask when it is safe to hold Plavix in preparation for kidney biopsy as he needs to be off Plav ix at least 7 days prior and to be off 7 days after kidney biopsy. All questions were answered. Nolvia Quach M.D., Ph.D. CT CT Job ID: [id number] Addendum: Lab work up was unremarkable. [...]
== END 2022-06-17 09:49 | disposition home or self-care (01) ==
LOC: OP CLINIC 09:49
PROVIDERS: PCP Family Medicine; Visit Provider Surgery
DX: R13.10 Dysphagia, unspecified (principal); K21.00 Gastro-esophageal reflux disease with esophagitis, without bleeding; K44.9 Diaphragmatic hernia without obstruction or gangrene
CPT/HCPCS: 43239; 88305; 99153; J2250; J3010

== ENCOUNTER 2022-10-27 10:55 | Outpatient (CLI) | payer MEDICAID, SELFPAY | END 2022-10-27 10:56 | disposition home or self-care (01) | LOC: NFLDREF 22:19 | PROVIDERS: PCP Family Medicine; Referring Provider Family Medicine; Visit Provider Internal Medicine Nephrology | DX: I10 Essential (primary) hypertension (principal); N18.9 Chronic kidney disease, unspecified; E66.9 Obesity, unspecified; E78.5 Hyperlipidemia, unspecified; E83.52 Hypercalcemia; I25.10 Atherosclerotic heart disease of native coronary artery without angina pectoris | CPT/HCPCS: 80069; 82043; 82306; 82310; 82570; 82728; 83540; 83550; 83970; 84550 ==

== ENCOUNTER 2023-01-19 09:55 | Outpatient (CLI) | payer MEDICAID, SELFPAY | END 2023-01-19 09:56 | disposition home or self-care (01) | LOC: NFLDREF 14:43 | PROVIDERS: PCP Family Medicine; Referring Provider Family Medicine; Visit Provider Internal Medicine Nephrology | DX: I10 Essential (primary) hypertension (principal); N17.9 Acute kidney failure, unspecified; N18.9 Chronic kidney disease, unspecified; E66.9 Obesity, unspecified; E83.52 Hypercalcemia | CPT/HCPCS: 80069; 82043; 82570; 82728; 83540; 83550 ==

== ENCOUNTER 2023-05-04 09:26 | Outpatient (CLI) | payer MEDICAID, SELFPAY | END 2023-05-04 09:27 | disposition home or self-care (01) | LOC: NFLDREF 05-07 14:12 | PROVIDERS: PCP Family Medicine; Referring Provider Family Medicine; Visit Provider Family Medicine | DX: E78.5 Hyperlipidemia, unspecified (principal); I10 Essential (primary) hypertension; Z12.5 Encounter for screening for malignant neoplasm of prostate | CPT/HCPCS: 80053; 80061; 84153 ==

== ENCOUNTER 2023-05-26 09:46 | Emergency (ER) | payer MEDICAID, SELFPAY ==
[2023-05-26 09:50] VITALS: BP 114/82; PULSE 97; RESP 18; TEMP 37.1; O2SAT 97; BMI 34.8
--- NOTE | 2023-05-26 10:03 | ED.NURSE ---
Unable to do visual acuity due to bilateral macular degeneration. he was unable to read any letters when attempted to check with snellen chart.
--- NOTE | 2023-05-26 10:59 | ED_ITS ---
HPI - Eye Problem General Time Seen by Provider: 10:00 <Monse Spicer Filed: 05/26/23 11:26> Date Seen: 05/26/23 <Monse Spicer Filed: 05/26/23 11:26> Chief complaint: Eye Problems <Monse Spicer Filed: 05/26/23 11:26> Stated complaint: Irritation R eye <Monse Ruiz Filed: 05/26/23 11:26> Time Seen by Provider: 05/26/23 10:00 <Monse Spicer Filed: 05/26/23 11:26> Source: patient <Monse Spicer Filed: 05/26/23 11:26> Mode of arrival: ambulatory <Monse Spicer Filed: 05/26/23 11:26> Limitations: no limitations <Monse Ruiz Filed: 05/26/23 11:26> History of Present Illness HPI Narrative: Patient is a 62-year-old male with a pertinent past medical history of mac ular degeneration, hypertension, hypercholesteremia, and kidney disease presenting with right eye irritation and redness beginning 2 days ago after being outside near a gravel road. He states the pain has been constant and was worse yesterday afternoon and describes the discomfort as feeling like a grain of sand. Patient tried removing what he thought was a foreign body with a Q-tip and tried using lubricating eye drops with no relief. Patient was able to drive himself to the ER today, but does note that he has blurry vision appreciated in the right eye. He denies any headaches, dizziness, purulence discharge, itching, rhinorrhea, or any other complaints at this time. He is anticoagulated on 81 mg aspirin after having history of 4 stents. <Monse Spicer Filed: 05/26/23 11:26> Patient is a 62-year-old male with a pertinent past medical history of macular degeneration, hypertension, hypercholesteremia, and kidney disease presenting with right eye irritation and redness beginning 2 days ago after being outside near a gravel road. He states the pain has been constant and was worse yesterday afternoon and describes the discomfort as feeling like a grain of sand. Patient tried removing what he thought was a foreign body with a Q-tip and tried using lubricating eye drops with no relief. Patient was able to drive himself to the ER today, but does note that he has blurry vision appreciated in the right eye. He denies any headaches, dizziness, purulence discharge, itching, rhinorrhea, or any other complaints at this time. He is anticoagulated on 81 mg aspirin after having history of 4 stents. Past medical history of macular degeneration, and says he can not see well normally. <Donald Caro MD - Last Filed: 05/26/23 11:31> Related Data Patient tetanus UTD: Yes (1 year ago, per patient) <Monse Ruiz Last Filed: 05/26/23 11:26> Home medications: Home Medications Medication Instructions Recorded Confirmed aspirin 81 mg chewable tablet 81 mg PO DAILY 01/28/22 05/07/23 Previous Rx's Medication Instructions Recorded amlodipine 10 mg tablet 10 mg PO QDAY #90 tabs 05/07/23 ezetimibe 10 mg tablet 10 mg PO DAILY #90 tabs 05/07/23 lisinopril 5 mg tablet 5 mg PO QDAY #90 tabs 05/07/23 nitroglycerin 0.4 mg sublingual 0.4 mg sublingual Q5M PRN chest 05/07/23 tablet pain #25 tabs omeprazole 40 mg capsule,delayed 40 mg PO QDAY #90 caps 05/07/23 release rosuvastatin 40 mg tablet 40 mg PO DAILY #90 tabs 05/07/23 ofloxacin 0.3 % eye drops (Ocuflox) 1 drp ophthalmic (eye) QID #10 mL 05/26/23 <Monse Ruiz Last Filed: 05/26/23 11:26> Allergies/adverse reactions: Allergies Allergy/AdvReac Type Severity Reaction Status Date / Time No Known Allergies Allergy Verified 05/26/23 09:49 <Monse Ruiz Last Filed: 05/26/23 11:26> Review of Systems Const: Denies: fever or chills <Monse Ruiz Last Filed: 05/26/23 11:26> Eyes: Reports: blurry vision, eye discomfort, eye discharge (clear) and increased production of tears; Denies: blind spots, light sensitivity, dry eyes, floaters or seeing flashes <Monse Ruiz Last Filed: 05/26/23 11:26> ENMT: Denies: nasal discharge or nasal congestion <Monse Gall - Last Filed: 05/26/23 11:26> FOR[facility]LY [facility], [facility] PFS Surgical History: Surgical History History of appendectomy ?Z90.49 - Acquired absence of other specified parts of digestive tract (ICD- 10) <Monse Cabral - Last Filed: 05/26/23 11:26> Social History: Social History Narrative: SOCIAL HISTORY: Currently not working. Single. No significant other. Here with a friend. One child age 31 [address] in [place]. It sounds like they are estranged. Not sexually active. No regular exercise. HABITS: No tobacco use. Past marijuana use reported. Alcohol use 8 or 9 drinks per week FAMILY HISTORY: Father with lung cancer at 64. What is your current living situation?: declined to answer Problems where you live: declined to answer In the past 12 months, utilities in danger of being shut off: declined to answer In past 12 months, lack of transportation kept you from medical appts, meetings, work, or getting things needed for daily living: declined to answer In the past 12 mos, have been you worried that your food would run out before you had money to buy more?: declined to answer In the past 12 mos, the food you bought just didn't last and you didn't have money to buy more?: declined to answer Smoking Status: Former smoker Do you use any of these nicotine containing products: None Second hand tobacco smoke exposure: No How often do you have a drink containing alcohol: 4 or more times a week How many standard drinks containing alcohol do you have on a typical day: 1 or 2 How often do you have six or more drinks on one occasion: Never AUDIT-C Alcohol total score: 4 Non-prescribed substance use: denies use How often does anyone, including family, friends and others, physically hurt you : decline to answer How often does anyone, including family, friends and others, insult or talk down to you: decline to answer How often does anyone, including family, friends and others, threaten you with harm: decline to answer How often does anyone, including family, friends and others, scream or curse at you: decline to answer service: No <Monse Cabral Last Filed: 05/26/23 11:26> Exam Const: Vital Signs, click to edit/add: Vital Signs - 24 hr 05/26/23 09:50 Temperature 98.8 F Pulse Rate [Pulse Oximeter] 97 Respiratory Rate 18 Blood Pressure [Le ft Upper Arm] 114/82 Pulse Oximetry 97 Oxygen Delivery Me thod Room Air <Monse [facility] Last Filed: 05/26/23 11:26> Vital Signs, click to edit/add: Vital Signs - 24 hr 05/26/23 09:50 Temperature 98.8 F Pulse Rate [Pulse Oximeter] 97 Respiratory Rate 18 Blood Pressure [Le ft Upper Arm] 114/82 Pulse Oximetry 97 Oxygen Delivery Me thod Room Air <Donald Caro MD - Last Filed: 05/26/23 11:31> Documenting provider has reviewed patient's vital signs: yes <Monse [facility] Filed: 05/26/23 11:26> Common normals: no apparent distress, average body habitus, oriented x3, no limitations, healthy appearing, alert and well nourished <[facility] Last Filed: 05/26/23 11:26> HENMT: Common normals: normocephalic, head/scalp atraumatic, hearing grossly normal bilaterally, external ears normal and external nose normal <[facility] Filed: 05/26/23 11:26> Head and scalp: normocephalic and atraumatic <[facility] Last Filed: 05/26/23 11:26> Nose: external nose normal and no nasal discharge <Monse [employer] Last Filed: 05/26/23 11:26> External ear: external ears normal <Monse [employer] Last Filed: 05/26/23 11:26> Eye: Common normals: PERRL, EOMs intact bilaterally, no scleral icterus, no papilledema, normal visual riggs by confrontation and fundi normal bilaterally <[facility] [employer] Last Filed: 05/26/23 11:26> General eye: normal light reflex <Monse [employer] Last Filed: 05/26/23 11:26> Visual acuity: other (unable to attain due to hx of macular degeneration) <[facility] - Last Filed: 05/26/23 11:26> Eyelid: eyelids normal <[facility] - Last Filed: 05/26/23 11:26> Conjunctiva: conjunctiva abnormal (erythematous) right <[facility] - Last Filed: 05/26/23 11:26> Sclera: sclera abnormal (erythematous) Laterality of scleral abnormality: right <[facility] - Last Filed: 05/26/23 11:26> Cornea: fluorescein used <[facility] - Last Filed: 05/26/23 11:26> Pupil: PERRL <[facility] Last Filed: 05/26/23 11:26> Direct Ophthalmoscopy: normal light reflex, no papilledema and fundi normal bilaterally; no photophobia <[facility] Last Filed: 05/26/23 11:26> Slit lamp exam: slit lamp exam performed with fluorescein, conjunctiva/sclera Conjunctiva/sclera details: diffuse conjunctiva injection and cornea (abrasion appreciated at 1 o'clock position) <Monse [employer] Last Filed: 05/26/23 11:26> Other: Upper lid inverted and no evidence of foreign body. Or let checked and normal, at the 12 o'clock position there is a corneal defect, consistent with his issue. No rust ring or foreign body seen. Anterior chambers quiet, with no hyphema. <Donald aCro MD - Last Filed: 05/26/23 11:31> Neck & C-Spine: Common normals: full ROM <[facility] Last Filed: 05/26/23 11:26> Neuro: Common normals: oriented x3 <[facility] - Last Filed: 05/26/23 11:26> Sensorium/orientation: alert <[facility] Last Filed: 05/26/23 11:26> Coordination/balance: [id number] test normal <[facility] - Last Filed: 05/26/23 11:26> Coordination: [id number] test normal <Monse [employer] Last Filed: 05/26/23 11:26> Pupil exam: Normal pupillary reactivity/response: bilateral <Monse Cabral - Last Filed: 05/26/23 11:26> Course Course ED Course: 10:05 AM - Patient was evaluated by JOSEPH Mace. 10:10 AM - Patient was evaluated by JOSEPH Mace and Dr. Caro. Return precautions advised. <Monse Cabral - Last Filed: 05/26/23 11:26> Reevaluation(s) Time of Reevaluation #1: 11:30 <Donald Caro MD - Last Filed: 05/26/23 11:31> Reevaluation #1: I personally reviewed and attended this patient, during the history, physical, and use of the slit lamp, <Donald Caro MD - Last Filed: 05/26/23 11:31> Vital Signs Vital signs: Initial Vital Signs Temperature 98.8 F 05/26/23 09:50 Temperature Source Temporal Artery Scan 05/26/23 09:50 Pulse Rate 97 05/26/23 09:50 Pulse Rhythm Regular 05/26/23 09:50 Respiratory Rate 18 05/26/23 09:50 Blood Pressure 114/82 05/26/23 09:50 Blood Pressure Mean 92 05/26/23 09:50 Blood Pressure Position Sitting 05/26/23 09:50 Pulse Oximetry 97 05/26/23 09:50 Oxygen Delivery Method Room Air 05/26/23 09:50 Vital Signs Temperature 98.8 F 05/26/23 09:50 Pulse Rate 97 05/26/23 09:50 Respiratory Rate 18 05/26/23 09:50 Blood Pressure 114/82 05/26/23 09:50 Pulse Oximetry 97 05/26/23 09:50 Oxygen Delivery Method Room Air 05/26/23 09:50 Temperature 98.8 F 05/26/23 09:50 Pulse Rate 97 05/26/23 09:50 Respiratory Rate 18 05/26/23 09:50 Blood Pressure 114/82 05/26/23 09:50 Pulse Oximetry 97 05/26/23 09:50 Oxygen Delivery Method Room Air 05/26/23 09:50 <Monse Cabral - Last Filed: 05/26/23 11:26> Initial Vital Signs Temperature 98.8 F 05/26/23 09:50 Temperature Source Temporal Artery Scan 05/26/23 09:50 Pulse Rate 97 05/26/23 09:50 Pulse Rhythm Regular 05/26/23 09:50 Respiratory Rate 18 05/26/23 09:50 Blood Pressure 114/82 05/26/23 09:50 Blood Pressure Mean 92 05/26/23 09:50 Blood Pressure Position Sitting 05/26/23 09:50 Pulse Oximetry 97 05/26/23 09:50 Oxygen Delivery Method Room Air 05/26/23 09:50 Vital Signs Temperature 98.8 F 05/26/23 09:50 Pulse Rate 97 05/26/23 09:50 Respiratory Rate 18 05/26/23 09:50 Blood Pressure 114/82 05/26/23 09:50 Pulse Oximetry 97 05/26/23 09:50 Oxygen Delivery Method Room Air 05/26/23 09:50 Temperature 98.8 F 05/26/23 09:50 Pulse Rate 97 05/26/23 09:50 Respiratory Rate 18 05/26/23 09:50 Blood Pressure 114/82 05/26/23 09:50 Pulse Oximetry 97 05/26/23 09:50 Oxygen Delivery Method Room Air 05/26/23 09:50 <Donald Caro MD - Last Filed: 05/26/23 11:31> MDM - Eye Problem MDM Narrative Medical decision making narrative: Patient is a 62-year-old male with a pertinent medical history of macular degeneration, hypertension, hypercholesteremia, and kidney disease, who presents today with right eye irritation and a foreign body sensation for the past 2 day s. On exam, patient has clear watery drainage from the right eye with an erythematous sclera. No foreign body appreciated on eversion of the upper and lower eyelids. There was a corneal abrasion noted at the 1 o'clock position appreciated with fluorescein stain while using a slit lamp. Low suspicion for a bacterial conjunctivitis as patient does not have any purulent discharge or crusting of the eyelids. Low suspicion for viral conjunctivitis as patient does not have any itching or seasonal allergies and the irritation is localized to the right eye. Plan is to send patient home with ofloxacin eyedrops and follow- up with [facility] if issues do not resolve. <Monse Cabral - Last Filed: 05/26/23 11:26> Differential Diagnosis Differential diagnosis: Likely corneal abrasion and conjunctivitis <Monse Cabral - Last Filed: 05/26/23 11:26> Medical Records Attestation: I reviewed the patient's medical records. <Donald Caro MD - Last Filed: 05/26/23 11:31> Discharge Plan Discharge Clinical Impression: Corneal abrasion <Monse Misha - Last Filed: 05/26/23 11:26> Condition: Stable <Monse Cabral - Last Filed: 05/26/23 11:26> Instructions: Corneal Abrasion (DC) <Monse Cabral - Last Filed: 05/26/23 11:26> Additional Instructions: Home rest use of eyedrops as directed. Recommend if not fully improved in 24 hours to be seen at [facility]. <Monse Cabral - Last Filed: 05/26/23 11:26> Activity Level: Light activity <Monse Cabral - Last Filed: 05/26/23 11:26> Light activity <Donald Caro MD - Last Filed: 05/26/23 11:31> Prescriptions: New ofloxacin [Ocuflox] 0.3 % drops 1 drp ophthalmic (eye) QID Qty: 10 0RF Rx Instructions: One drop q.i.d. to affected eye for 5 days No Action aspirin 81 mg tablet,chewable 81 mg PO DAILY amlodipine 10 mg tablet 10 mg PO QDAY Qty: 90 3RF ezetimibe 10 mg tablet 10 mg PO DAILY Qty: 90 3RF lisinopril 5 mg tablet 5 mg PO QDAY Qty: 90 3RF nitroglycerin 0.4 mg tablet, sublingual 0.4 mg sublingual Q5M PRN (Reason: chest pain) Qty: 25 0RF Rx Instructions: As needed for chest pain x3 doses. omeprazole 40 mg capsule,delayed release(DR/EC) 40 mg PO QDAY Qty: 90 3RF rosuvastatin 40 mg tablet 40 mg PO DAILY Qty: 90 3RF <Monse Cabral - Last Filed: 05/26/23 11:26> Follow Up/Referrals: Hi Adams MD [Primary Care Provider] - <Monse Ruiz Last Filed: 05/26/23 11:26>
== END 2023-05-26 11:09 | disposition home or self-care (01) ==
PROVIDERS: Emergency Provider Family Medicine; PCP Family Medicine
DX: S05.01XA Injury of conjunctiva and corneal abrasion without foreign body, right eye, initial encounter (principal)
CPT/HCPCS: 65222; 99283; A9270

== ENCOUNTER 2024-02-16 13:33 | Inpatient (IN) | payer MEDICAID, SELFPAY ==
[2024-02-16] VITALS (40 sets, daily range): BP systolic 65–112; BP diastolic 47–76; PULSE 76–98; RESP 18–20; TEMP 36.2–37.2; O2SAT 96–99; BMI 36.0
--- NOTE | 2024-02-16 13:55 | ED_ITS ---
HPI - General Adult General Time Seen by Provider: 13:55 Date Seen: 02/16/24 Chief complaint: Hypotension Stated complaint: Low BP, dizziness Time Seen by Provider: 02/16/24 13:55 Source: patient and RN notes reviewed Mode of arrival: ambulatory Limitations: no limitations History of Present Illness HPI narrative: Perico is a very pleasant 63-year-old gentleman with a history of COPD, no further tobacco use, known coronary artery disease with stent, hypertension and chronic kidney disease who comes to the emergency room for evaluation regarding low blood pressure and lightheadedness. Perico states that this is been going on for approximately 1 month, gradually increasing and this morning blood pressure was 60/50. He is on multiple medications but is unsure of what they are. [facility] care. He states over the last month he gets up in the morning and feels lightheaded-no vertigo-but gradually can get moving. He notes the lightheadedness seems to be worse in the evenings. He denies rapid heart rate or chest pain. He is urinating and denies hematuria but notes that his urinary stream is weak. He denies nausea vomiting or chest pain. He does note an ongoing cough for greater than the week and blames this on a 2-year-old child living in his building that has been sitting on his lap. He denies fever chills. No diarrhea. No unusual lower extremity edema. Clarified with Perico that his exposure to the sick child was on or ThursdayFebruary 10 or but that he has had a cough for approximately 1 week but worsening lately. Patient notes the onset of loose stools this morning that have been nonbloody. Denies a history of vomiting but does endorse occasional retching. States 1-2 alcoholic drinks every night or every other night with no history of withdrawal. Denies a history of NSAID use. Related Data Home Medications ?Medication ?Instructions ?Recorded ?Confirmed aspirin 81 mg chewable tablet 81 mg PO DAILY 01/28/22 02/16/24 Previous Rx's ?Medication ?Instructions ?Recorded amlodipine 10 mg tablet 10 mg PO QDAY #90 tabs 05/07/23 ezetimibe 10 mg tablet 10 mg PO DAILY #90 tabs 05/07/23 lisinopril 5 mg tablet 5 mg PO QDAY #90 tabs 05/07/23 nitroglycerin 0.4 mg sublingual 0.4 mg sublingual Q5M PRN chest 05/07/23 tablet pain #25 tabs omeprazole 40 mg capsule,delayed 40 mg PO QDAY #90 caps 05/07/23 release rosuvastatin 40 mg tablet 40 mg PO DAILY #90 tabs 05/07/23 ofloxacin 0.3 % eye drops (Ocuflox) 1 drp ophthalmic (eye) QID #10 mL 05/26/23 Allergies Allergy/AdvReac Type Severity Reaction Status Date / Time No Known Allergies Allergy Verified 02/16/24 13:44 Review of Systems Status of ROS: Reports: 10 or more systems reviewed and unremarkable except as noted in History and below Const: Reports: fatigue; Denies: fever or chills Eyes: Denies: change in vision ENMT: Denies: neck pain, vertigo or nasal congestion Cardio: Reports: lightheadedness; Denies: chest pain, palpitations, swelling of feet/ankles or shortness of breath with exertion Resp: Reports: cough; Denies: shortness of breath or wheezing GI: Denies: abdominal pain, nausea, vomiting, diarrhea or blood in stool : Reports: urinary frequency and difficulty urinating; Denies: painful urination Musculo: Denies: neck pain Integ/Breast: Denies: rash Neuro: Reports: dizziness; Denies: headache, numbness in extremities, weakness in extremities, vertigo or confusion Endo: Reports: fatigue Allergy/Immuno: Denies: wheezing PFSH PFSH Surgical History History of appendectomy ?Z90.49 - Acquired absence of other specified parts of digestive tract (ICD- 10) Social History Narrative: SOCIAL HISTORY: Currently not working. Single. No significant other. Here with a friend. One child age 31 [address] in [place]. It sounds like they are estranged. Not sexually active. No regular exercise. HABITS: No tobacco use. Past marijuana use reported. Alcohol use 8 or 9 drinks per week FAMILY HISTORY: Father with lung cancer at 64. What is your current living situation?: declined to answer Problems where you live: declined to answer In the past 12 months, utilities in danger of being shut off: declined to answer In past 12 months, lack of transportation kept you from medical appts, meetings, work, or getting things needed for daily living: declined to answer In the past 12 mos, have been you worried that your food would run out before you had money to buy more?: declined to answer In the past 12 mos, the food you bought just didn't last and you didn't have money to buy more?: declined to answer Smoking Status: Former smoker Do you use any of these nicotine containing products: None Second hand tobacco smoke exposure: No How often do you have a drink containing alcohol: 2-3 times a week How many standard drinks containing alcohol do you have on a typical day: 1 or 2 How often do you have six or more drinks on one occasion: Never AUDIT-C Alcohol total score: 3 Non-prescribed substance use: denies use How often does anyone, including family, friends and others, physically hurt you : decline to answer How often does anyone, including family, friends and others, insult or talk down to you: decline to answer How often does anyone, including family, friends and others, threaten you with harm: decline to answer How often does anyone, including family, friends and others, scream or curse at you: decline to answer service: No Exam Narrative: Exam Narrative: Alert and oriented. Lying in Trendelenburg in room to with IV fluids running. External ears eyes nose clear. Neck is supple. Heart with a regular rate and rhythm. Lungs are clear. Abdomen soft. Lower extremities without edema. He is moving all extremities. Rectal exam shows normal anal area fingers inserted and I do palpate prostate and there are no unusual nodules. Small amount of light colored stool noted on glove fingertips. Const: Vital Signs, click to edit/add: Vital Signs - 24 hr 02/16/24 13:39 02/16/24 14:01 02/16/24 14:02 Temperature 97.2 F L Pulse Rate 89 87 Pulse Rate [Pulse Oximeter] 95 Respiratory Rate 20 Blood Pressure 65/47 L Blood Pressure [Le ft Upper Arm] 89/60 L Pulse Oximetry 98 99 98 Oxygen Delivery Me thod Room Air 02/16/24 14:04 02/16/24 14:11 02/16/24 14:15 Temperature Pulse Rate 84 81 81 Pulse Rate [Pulse Oximeter] Respiratory Rate Blood Pressure 83/54 L 86/58 L Blood Pressure [Le ft Upper Arm] Pulse Oximetry 99 99 99 Oxygen Delivery Oh thod 02/16/24 14:21 02/16/24 14:22 02/16/24 14:30 Temperature Pulse Rate 81 81 80 Pulse Rate [Pulse Oximeter] Respiratory Rate Blood Pressure 95/58 L Blood Pressure [Le ft Upper Arm] Pulse Oximetry 98 98 98 Oxygen Delivery Oh thod 02/16/24 14:31 02/16/24 14:41 02/16/24 14:45 Temperature Pulse Rate 84 81 80 Pulse Rate [Pulse Oximeter] Respiratory Rate Blood Pressure 94/55 L 88/65 L Blood Pressure [Le ft Upper Arm] Pulse Oximetry 98 99 98 Oxygen Delivery Oh thod 02/16/24 14:51 02/16/24 15:01 02/16/24 15:02 Temperature Pulse Rate 80 82 80 Pulse Rate [Pulse Oximeter] Respiratory Rate Blood Pressure 86/61 L 99/63 Blood Pressure [Le ft Upper Arm] Pulse Oximetry 99 98 [facility] 15:10 02/16/24 15:10 02/16/24 15:15 Temperature Pulse Rate 79 79 80 Pulse Rate [Pulse Oximeter] Respiratory Rate Blood Pressure 93/61 93/61 Blood Pressure [Le ft Upper Arm] Pulse Oximetry 98 98 98 [facility] 02/16/24 15:21 02/16/24 15:30 02/16/24 15:31 Temperature Pulse Rate 84 83 82 Pulse Rate [Pulse Oximeter] Respiratory Rate Blood Pressure 107/69 102/73 Blood Pressure [Le ft Upper Arm] Pulse Oximetry 98 98 98 Oxygen Delivery Oh thod 02/16/24 15:32 02/16/24 15:44 02/16/24 15:45 Temperature Pulse Rate 83 87 86 Pulse Rate [Pulse Oximeter] Respiratory Rate Blood Pressure 105/64 Blood Pressure [Le ft Upper Arm] Pulse Oximetry 98 99 99 Oxygen Delivery Oh thod 02/16/24 15:51 02/16/24 15:51 02/16/24 16:00 Temperature Pulse Rate 84 84 80 Pulse Rate [Pulse Oximeter] Respiratory Rate Blood Pressure 101/64 101/64 Blood Pressure [Le ft Upper Arm] Pulse Oximetry 99 99 98 Oxygen Delivery Oh thod 02/16/24 16:01 Temperature Pulse Rate 79 Pulse Rate [Pulse Oximeter] Respiratory Rate Blood Pressure 87/64 L Blood Pressure [Le ft Upper Arm] Pulse Oximetry 98 Oxygen Delivery Me thod Documenting provider has reviewed patient's vital signs: yes Course Course ED Course: Differential diagnosis includes but is not limited iatrogenic hypotension-curre ntly on amlodipine and lisinopril, COVID, cardiomyopathy, urinary tract infection, sepsis. IV has been placed and will give 1 L of normal saline. Will check labs include CBC, comprehensive, Reevaluation(s) Reevaluation #1: Patient's blood pressure improved to 102/73 after 1 L of normal saline. Patient symptomatic Skylar improved. Noted abnormalities on lab include a hemoglobin of 7.9 with normal hemoglobin 1 year ago, positive COVID, creatinine elevated at 4.4. Vital Signs Vital signs: Initial Vital Signs Temperature 97.2 F L 02/16/24 13:39 Temperature Source Temporal Artery Scan 02/16/24 13:39 Pulse Rate 95 02/16/24 13:39 Respiratory Rate 20 02/16/24 13:39 Blood Pressure 89/60 L 02/16/24 13:39 Blood Pressure Mean 69 L 02/16/24 13:39 Blood Pressure Position Sitting 02/16/24 13:39 Pulse Oximetry 98 02/16/24 13:39 Oxygen Delivery Method Room Air 02/16/24 13:39 Vital Signs Temperature 97.2 F L 02/16/24 13:39 Pulse Rate 95 02/16/24 13:39 Respiratory Rate 20 02/16/24 13:39 Blood Pressure 89/60 L 02/16/24 13:39 Pulse Oximetry 98 02/16/24 13:39 Oxygen Delivery Method Room Air 02/16/24 13:39 Temperature 97.2 F L 02/16/24 13:39 Pulse Rate 79 02/16/24 16:01 Respiratory Rate 20 02/16/24 13:39 Blood Pressure 87/64 L 02/16/24 16:01 Pulse Oximetry 98 02/16/24 16:01 Oxygen Delivery Method Room Air 02/16/24 13:39 Medications Administered Medications: Discontinued Medications Generic Name Dose Route Start Last Admin Trade Name Freq PRN Reason Stop Dose Admin Sodium Chloride 1,000 mls @ 1,000 mls/hr 02/16/24 14:14 02/16/24 15:03 0.9 % Sodium Chloride 1000 Ml IV 02/16/24 15:13 Infused .Q1H LU Infusion Medical Decision Making MDM Narrative Medical decision making narrative: 1. Acute kidney injury-creatinine today of 4.4. 1 L of normal saline given secondary to hypotension. I do note in the chart a similar incidents where johann creatinine climbed a 5.5 but improved after changing of his medications. This occurred in November of 2022. Blood pressure has rebounded nicely and patient is feeling better after fluids. Patient notes that he was supposed to see Nephrology 3 months ago but did not make that appointment. 2. Anemia-normocytic. No evidence of ongoing blood loss at this time. No report of hematemesis or blood in stoo or darkened stool. Fecal occult blood is currently pending. Patient notes that he actually had gone also have his aspirin as he thought he was taking too many medications. No abdominal pain, unusual weight loss. Could be sales representative business courses of anemia of chronic disease, gastritis secondary to alcohol use but at this time there is no active bleeding. 3. Lightheadedness-secondary to hypotension. Initial blood pressure here 65 systolic. Normal pulse. Likely related to a combination of poor p.o. intake, COVID and kidney failure. Patient states he does not drink as much water as normal and that this has been going on for a month with worsening over the recent past week. Perico is currently on amlodipine and lisinopril. No recent change in his medications. States that he does not drink enough water during the day but denies any vomiting. Diarrhea only occurred today. Blood pressure was as high as 102 systolic but has now dropped again to 89 systolic. Will give additional 500 mL of normal saline. 4. COVID positive-initially he spoke of a cough for greater than a week but then states that he was exposed to a 2-year-old at the end of last week. At this time oxygenation is appropriate, he has no chest pain and lung sounds are clear. Chest x-ray reassuring with no evidence of infiltrates. EKG by my read shows sinus rhythm at a rate of 91. No acute ST or T-wave changes are noted. Troponin negative. 5. Disposition-admit under the care of hospitalist. Medical Records Medical records reviewed: Yes I reviewed the patient's medical records Lab Data Lab results reviewed: Yes I reviewed the patient's lab results Labs: Lab Results 02/16/24 02/16/24 Range/Units 14:05 14:11 WBC 6.26 (4.50-11.00) K/uL RBC 2.98 L (4.30-5.90) m/uL Hgb 7.9 L* (13.5-17.5) gm/dL Hct 25.9 L (37.0-53.0) % MCV 87 (80-100) fL MCH 27 (26-34) pg MCHC 31 L (32-36) gm/dL RDW Coeff of Ana María 14.5 (11.5-15.5) % Plt Count 219 (140-440) K/uL Neut % (Auto) 72.4 H (42.0-72.0) % Lymph % (Auto) 14.2 L (20-44) % [place] % (Auto) 11.8 H (0.0-11.0) % Eos % (Auto) 1.0 (0.0-7.0) % Baso % (Auto) 0.3 (0.0-3.0) % Neut # (Auto) 4.50 (1.7-7.0) K/uL Lymph # (Auto) 0.90 (0.90-2.90) K/uL [place] # (Auto) 0.70 (0.00-0.90) K/UL Eos # (Auto) 0.06 (0.00-0.50) K/uL Baso # (Auto) 0.02 (0.00-0.30) K/uL Abs Immat Gran (auto) 0.02 (0.00-0.30) K/uL Imm/Tot Granulo (auto) 0.3 % Sodium 132 L (135-149) mmol/L Potassium 4.0 (3.6-5.1) mmol/L Chloride 104 (96-114) mmol/L Carbon Dioxide 17 L (20-32) mmol/L Anion Gap 11 (7-15) mEq/L BUN 37 H (7-30) mg/dL Creatinine 4.4 H (0.5-1.5) mg/dL Estimated Creat Clear 16.27 Estimated GFR 14 ml/min Glucose 111 (60-115) mg/dL Calcium 9.0 (8.4-10.6) mg/dL Total Bilirubin 0.4 (0.1-1.5) mg/dL AST 49 H (12-35) U/L ALT 63 H (4-50) U/L Alkaline Phosphatase 84 (40-150) U/L C-Reactive Protein < 0.5 L (0.5-1.0) mg/dL Total Protein 7.5 (6.0-8.3) g/dL Albumin 4.3 (3.3-5.0) g/dL SARS-CoV-2 (PCR) POSITIVE SARS-CoV-2 A (Negative) POC Troponin I 0.00 L (0.01-0.04) ng/ml Imaging Data Chest x-ray: Attestation: I have reviewed the pertinent imaging results. Radiologist's impression: Cardiovasculature and mediastinum: Heart size is normal. Unremarkable mediastinum. Lungs and pleural spaces: Lungs are clear. No sign of infiltrate or mass. No sign of pleural effusion. No pneumothorax. Bones and soft tissues: No significant findings. IMPRESSION: No acute findings and no significant changes from the prior exam. ECG Data Attestation: I personally reviewed and interpreted this ECG as follows: Interpretation: EKG by my read shows sinus rhythm at a rate of 91. No acute ST or T-wave changes are noted. HI and QT intervals within normal limits. Critical Care Time Critical Care Time Critical Care Time: Yes Attestation: The patient required my highest level preparedness to intervene emergently and I personally spent this critical care time directly and personally managing the patient. This critical care time included: Obtaining a history; Examining the patient; Pulse oximetry; Ordering and reviewing of studies; Arranging urgent treatment with development of a management plan; Evaluation of patients response to treatment; Frequent reassessment discussions with other providers. This critical care time was performed to assess and manage the high probability of imminent life-threatening deterioration that could result in multiorgan failure. It was exclusive of separate billable procedures and [facility] Total Critical Care Time in Minutes: 45 Discharge Plan Discharge Clinical Impression: Acute hypotension, Acute kidney injury, Anemia, COVID Patient Disposition: Admitted As Observation Condition: Improved
[2024-02-16] MEDS: 0.9 % SODIUM CHLORIDE 1000 ml 1,000 ML IV (14:10)
--- NOTE | 2024-02-16 14:11 | CRLHL7_ITS ---
For Patients: As a result of the Century Cures Act, medical imaging exams and procedure reports are released immediately into your electronic medical record. You may view this report before your referring provider. If you have questions, please contact your health care provider. INDICATION: Hypotension. TECHNIQUE: Chest 1 views. COMPARISON: Chest radiograph dated 02/06/2021. FINDINGS: Cardiovasculature and mediastinum: Heart size is normal. Unremarkable mediastinum. Lungs and pleural spaces: Lungs are clear. No sign of infiltrate or mass. No sign of pleural effusion. No pneumothorax. Bones and soft tissues: No significant findings. IMPRESSION: No acute findings and no significant changes from the prior exam. Dictated by Anmol Moralez MD @ 02/16/2024 2:59:46 PM (Electronically Signed)
--- OUTSIDE RECORDS SUMMARY | 2024-02-16 14:26 | XMS_ITS | Clinical Summary ---
Author Organization [facility] Address [place], [place] [address] Care Team Providers Care Forestry Laborer Name Role Phone Hi Adams MD Primary Care Provider [phone] Allergies No known active allergies Medications Medication Sig Dispensed Refills Start Date End Date Status rosuvastatin (CRESTOR) 20 mg tablet Take 20 mg by mouth once daily. Active metoprolol tartrate (LOPRESSOR) 100 mg tablet Take 50 mg by mouth 2 times daily. Active lisinopril-hydrochloro thiazide, 20-25 mg, (PRINZIDE, ZESTORETIC) 20-25 mg per tablet Take 1 Tablet by mouth once daily. Active nitroglycerin (NITROSTAT) 0.[address] 0.4 mg under the tongue every 5 minutes if needed for Chest Pain. Active aspirin chewable 81 mg chewable tablet Chew 81 mg by mouth once daily. Active amLODIPine (NORVASC) 10 mg tabletIndications:Esse ntial hypertension TAKE ONE TABLET BY MOUTH (10MG) ONCE DAILY 90 Tablet 3 06/05/2021 Active ezetimibe (Zetia) 10 mg tabletIndications:Ronny nary artery disease involving craig coronary artery without angina pectoris, unspecified whether craig or transplanted heart Take 1 Tablet (10 mg) by mouth once daily. 90 Tablet 3 09/26/2021 Active Active Problems Problem Noted Date Diagnosed Date COPD (chronic obstructive pulmonary disease) 08/2020 Dyslipidemia 03/07/2021 ASHD (arteriosclerotic heart disease) 03/07/2021 Overview: - CCTA 02/22/2021 1. Borderline significant distal left main stenosis. 2. Severe proximal and intermediate severity distal RCA stenoses. A. Significant PDA stenosis in a small vessel. 3. Marked diffuse non-obstructive coronary artery disease. - angiogram 03/07/2021: s/p NILS x 3 RCA; s/p NILS LAD with side branch PTCA Chest pain 03/07/2021 HYPERTENSION - ESSENTIAL 11/14/2002 Hx TOBACCO USE Social History Tobacco Use Types Packs/Day Years Used Date Smoking Tobacco: Former Cigarettes Smokeless Tobacco: Never Comments:quit 8 years ago Alcohol Use Standard Drinks/Week Comments Yes 14 (1 standard drink = 0.6 oz pu re alcohol) 2 cocktails per night Social Connections Answer Date Recorded Frequency of Communication with Friends and Fami ly Not on file 2021 Financial Resource Strain Answer Date R ecorded Difficulty of Paying Living Expenses Not on file 2021 Difficulty of Paying Living Expenses Not on file 2021 Sex and Gender Information Value Date Recorded Sex Assigned at Not on file Gender Identity Not on file Sexual Orientation Not on file Obstetrics History Last Filed [...] Health Maintenance Due Date Last Done Comments Pneumococcal series for age 6-64 (1 of 2 - PCV) 1967 Tdap 1972 Depression screening for age 12+ 1973 HIV for age 15-65 1976 BMI (ht and wt on same day) for age 18+ 1979 Hepatitis C screening for age 18-79 1979 Tetanus booster 1981 Colonoscopy through age 75 2006 Zoster (shingles) series for age 50+ (1 of 2) 2011 COVID-19 vaccine series (2022- season) 2023 09/03/2021, 02/26/2021, 02/05/2021 Influenza for age 50-64 03/06/2024 Lipids for age 45-75 03/04/2026 03/04/2021 Procedures Procedure Name Priority Date/Time Associated Diagnosis Comments LIPID PANEL W REFLEX MEASURED LDL Routine 03/04/2021 10:46 AM CDT Abnormal computed tomography angiography (CTA) from Last 3 Months or Most Recently Relevant to Health Maintenance Results * (ABNORMAL) LIPID PANEL W REFLEX MEASURED LDL (03/04/2021 10:46 AM CDT) CHOLESTEROL,TOTAL 205(H) 100 - 199 mg/dL 03/04/2021 4:24 PM CDT [facility] [facility] TRIGLYCERIDES 73 <150 mg/dL 03/04/2021 4:24 PM CDT [facility] HDL CHOLESTEROL 52 >40 mg/dL 4:24 PM CDT [facility] NON-HDL CHOLESTEROL 153(H) <145 mg/dl 03/04/2021 4:24 PM CDT [facility] CHOL/HDL RATIO 3.94 <4.50 03/04/2021 4:24 PM CDT [facility] LDL CHOLESTEROL 138(H) <=130 mg/dL 03/04/2021 4:24 PM CDT [facility] [employer] VLDL CHOLESTEROL 15 mg/dL 03/04/20 4:24 PM CDT [facility] [employer] PROVIDER ORDERED STATUS FASTING 03/04/2021 4:24 PM CDT [facility] Blood BLOOD SPECIMEN / Unknown Venipuncture / Unknown 03/04/2021 10:46 AM CDT 03/04/2021 10:46 AM CDT Chinmay Guerrero MD CHEMISTRY [employer] [facility] [address] [place] [address], from Last 3 Months or Most Recently Relevant to Health Maintenance Advance Directives * Full Code (Latest Code Status on File) Date Activated Date Inactivated Comments 03/07/2021 8:55 AM 03/08/2021 12:47 PM Question Answer Comments Code Status Discussion: Discussed Care Teams Forestry Laborer Relationship Specialty Start Date End Date Hi Adams MD [address] [place] [address] PCP - General Family Practice 02/12/21
[2024-02-16 14:31] LABS: Basophils Absolute Auto 0.02 K/uL (0.00-0.30); Basophils Percent Auto 0.3 % (0.0-3.0); Eosinophils Absolute Auto 0.06 K/uL (0.00-0.50); Hematocrit 25.9 % (37.0-53.0); Immature Granulocytes Abs Auto 0.02 K/uL (0.00-0.30); Immature Granulocytes Pct Auto 0.3 %; Lymphocytes Percent Auto 14.2 % (20-44); Mean Corpuscular HGB Conc 31 gm/dL (32-36); Mean Corpuscular Hemoglobin 27 pg (26-34); Mean Corpuscular Volume 87 fL (80-100); Monocytes Percent Auto 11.8 % (0.0-11.0); Neutrophils Percent Auto 72.4 % (42.0-72.0); Platelet Count* 219 K/uL (140-440); RDW Coefficient of Variation % 14.5 % (11.5-15.5); Red Blood Count 2.98 m/uL (4.30-5.90); White Blood Count* 6.26 K/uL (4.50-11.00)
[2024-02-16 14:38] LABS: Hemoglobin* 7.9 gm/dL (13.5-17.5); Slide Review Reflex No
[2024-02-16 14:51] LABS: SARS PCR* POSITIVE SARS-CoV-2 (Negative)
[2024-02-16 14:52] LABS: Albumin* 4.3 g/dL (3.3-5.0); Chloride* 104 mmol/L (96-114)
[2024-02-16 14:53] LABS: Sodium* 132 mmol/L (135-149)
[2024-02-16 14:55] LABS: Bilirubin Total* 0.4 mg/dL (0.1-1.5); Creatinine* 4.4 mg/dL (0.5-1.5); Est. Creatinine Clearance* 16.27; Estimated Glomerular Filt Rate 14 ml/min
[2024-02-16 14:56] LABS: Alanine Aminotransferase* 63 U/L (4-50); Alkaline Phosphatase* 84 U/L (40-150); Anion Gap 11 mEq/L (7-15); Aspartate Amino Transferase* 49 U/L (12-35); Blood Urea Nitrogen* 37 mg/dL (7-30); Carbon Dioxide* 17 mmol/L (20-32); Glucose* 111 mg/dL (60-115); Total Protein* 7.5 g/dL (6.0-8.3)
[2024-02-16 15:10] LABS: C Reactive Protein* < 0.5 mg/dL (0.5-1.0)
[2024-02-16 16:26] LABS: Appearance Urine Clear (Clear); Bilirubin Urine Negative (Negative); Blood Urine 1+ (Negative); Color Urine Yellow (Yellow); Glucose Urine Negative (Negative); Ketones Urine Negative (Negative); Leukocyte Esterase Urine Negative (Negative); Nitrite Urine Negative (Negative); Protein Urine 1+ (Negative); Urobilinogen Urine 0.2 (0.2-1.0)
[2024-02-16 16:29] LABS: Bacteria Urine Few; RBC Urine 0-2 (0-2); Squamous Epithelial Cell Urine Few (None-Few); WBC Urine 0-2 (0-5)
[2024-02-16 16:30] LABS: Coarse Granular Casts Urine Few
--- NOTE | 2024-02-16 16:45 | ED.NURSE ---
Pt report given to martha RN, pt to room 277.
[2024-02-16 16:50] LABS: Fecal Occult Blood* Negative (Negative)
--- NOTE | 2024-02-16 17:37 | PM.IMHP1 ---
Hospitalist- H&P: HPI History of Present Illness Date Seen: 02/16/24 Chief complaint: Low BP, dizziness Narrative: Perico Huerta is a 63 year old man presents to the emergency department with an evolving one-month history of low blood pressures intensifying for the past 1 week. Has had longstanding hypertension. Has been in various antihypertensive medications. Continues to take amlodipine 10 mg once daily and lisinopril 5 mg once daily. Has noticed orthostasis symptoms in the morning and sometimes in the evening. Denies nausea, vomiting, diaphoresis, syncope. Has had near syncopal episodes. Denies angina, anginal equivalent, palpitations, chest fluttering, edema. Has had a cough for the past week. Developed loose stools in the last 24 hours. 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 Has had no trauma, injury, or blood loss. Review of Systems Status of ROS: Reports: 10 or more systems reviewed and unremarkable except as noted in History and below Narrative: Notices urine odor stronger than usual lately. Denies dysuria, urgency, frequency, hematuria. Acknowledges nocturia times 2-3, which is usual for him. Loose stool starting today. Denies diarrhea. No blood loss. No hematochezia or melena. Denies nausea or vomiting. Denies hematemesis. Chronic intermittent constipation. Denies myalgias, arthralgias. Chronic decreased vision related to macular degeneration. Designates his friend, Nyasia Chand, as his power of estate planning attorney for health should that be required. Requests DNR DNI resuscitation status in the event of cardiopulmonary demise. Has not use any tobacco products for 16 years. Drinks 0-1 alcoholic beverage nightly. He is working to stop this altogether. Denies use of any other street or recreational drugs. Not working due to his physical health. Found not to be eligible for social security disability. Working to apply for his social security. [facility] Medical History (Updated 02/16/24 @ 18:08 by Sixto Harris MD) Acute kidney injury ?N17.9 - Acute kidney failure, unspecified (ICD-10) Chest pain ?R07.9 - Chest pain, unspecified (ICD-10) Chronic kidney disease ?N18.9 - Chronic kidney disease, unspecified (ICD-10) Coronary artery disease ?I25.10 - Atherosclerotic heart disease of [place] coronary artery without angina pectoris (ICD-10) Glaucoma ?H40.9 - Unspecified glaucoma (ICD-10) Hypercalcemia ?E83.52 - Hypercalcemia (ICD-10) Hyperlipidemia ?E78.5 - Hyperlipidemia, unspecified (ICD-10) Hypertension ?I10 - Essential (primary) hypertension (ICD-10) Macular degeneration ?H35.30 - Unspecified macular degeneration (ICD-10) Obesity ?E66.9 - Obesity, unspecified (ICD-10) GERD (gastroesophageal reflux disease) ?K21.9 - Gastro-esophageal reflux disease without esophagitis (ICD-10) Dysphagia ?R13.10 - Dysphagia, unspecified (ICD-10) COPD (chronic obstructive pulmonary disease) ?J44.9 - Chronic obstructive pulmonary disease, unspecified (ICD-10) Surgical History (Updated 02/16/24 @ 17:36 by Sixto Harris MD) Stented coronary artery ?Z95.5 - Presence of coronary angioplasty implant and graft (ICD-10) History of appendectomy ?Z90.49 - Acquired absence of other specified parts of digestive tract (ICD-10) Social History Narrative: SOCIAL HISTORY: Currently not working. Single. No significant other. Here with a friend. One child age 31 [address] in [place]. It sounds like they are estranged. Not sexually active. No regular exercise. HABITS: No tobacco use. Past marijuana use reported. Alcohol use 8 or 9 drinks per week FAMILY HISTORY: Father with lung cancer at 64. What is your current living situation?: declined to answer Problems where you live: declined to answer In the past 12 months, utilities in danger of being shut off: declined to answer In past 12 months, lack of transportation kept you from medical appts, meetings, work, or getting things needed for daily living: declined to answer In the past 12 mos, have been you worried that your food would run out before you had money to buy more?: declined to answer In the past 12 mos, the food you bought just didn't last and you didn't have money to buy more?: declined to answer Smoking Status: Former smoker Do you use any of these nicotine containing products: None Second hand tobacco smoke exposure: No How often do you have a drink containing alcohol: 2-3 times a week How many standard drinks containing alcohol do you have on a typical day: 1 or 2 How often do you have six or more drinks on one occasion: Never AUDIT-C Alcohol total score: 3 Non-prescribed substance use: denies use How often does anyone, including family, friends and others, physically hurt you: decline to answer How often does anyone, including family, friends and others, insult or talk down to you: decline to answer How often does anyone, including family, friends and others, threaten you with harm: decline to answer How often does anyone, including family, friends and others, scream or curse at you: decline to answer service: No Meds Home Medications and Allergies Home Medication Comments: Aspirin 81 mg daily Amlodipine 10 mg once daily Ezetimibe E 10 mg once daily Lisinopril 5 mg once daily Nitroglycerin 0.4 mg sublingual as needed Omeprazole 40 mg once daily Rosuvastatin 40 mg once daily Allergies Allergy/AdvReac Type Severity Reaction Status Date / Time No Known Allergies Allergy Verified 02/16/24 13:44 Exam Narrative: Exam Narrative: I examined the patient in the emergency department. Appears comfortable in no acute distress. Vision and hearing are sufficient. Alert and oriented x4. Friendly, articulate, cooperative. External auditory canals and tympanic membranes are normal. Midline nasal septum. Normal nasal mucosa. Dentition in fair repair. Buccal mucosa dry. No icterus. Conjugate gaze. Neck is supple. Midline trachea. No head neck lymphadenopathy. Lungs clear to auscultation without wheezing, rhonchi, or rales. No CVA tenderness. Heart tones with regular rhythm, normal S1-S2, without murmur, gallop, or rub. Abdomen with active bowel sounds, soft, nontender. No rebound or guarding. Extremities with only trace edema pretibially bilaterally. No focal motor neurologic deficits. Skin is dry and intact. Const: Vital Signs, click to edit/add: Vital Signs - 24 hr 02/16/24 13:39 02/16/24 14:01 02/16/24 14:02 Temperature 97.2 F L Pulse Rate 89 87 Pulse Rate [Pulse Oximeter] 95 Pulse Rate [Right Radial] Respiratory Rate 20 Blood Pressure 65/47 L Blood Pressure [Le ft Upper Arm] 89/60 L Blood Pressure [Ri ght Arm] Pulse Oximetry 98 99 98 Oxygen Delivery [facility] Room Air 02/16/24 14:04 02/16/24 14:11 02/16/24 14:15 Temperature Pulse Rate 84 81 81 Pulse Rate [Pulse Oximeter] Pulse Rate [Right Radial] Respiratory Rate Blood Pressure 83/54 L 86/58 L Blood Pressure [Le ft Upper Arm] Blood Pressure [Ri ght Arm] Pulse Oximetry 99 99 99 Oxygen Delivery [facility] 02/16/24 14:21 02/16/24 14:22 02/16/24 14:30 Temperature Pulse Rate 81 81 80 Pulse Rate [Pulse Oximeter] Pulse Rate [Right Radial] Respiratory Rate Blood Pressure 95/58 L Blood Pressure [Le ft Upper Arm] Blood Pressure [Ri ght Arm] Pulse Oximetry 98 98 98 Oxygen Delivery [facility] 02/16/24 14:31 02/16/24 14:41 02/16/24 14:45 Temperature Pulse Rate 84 81 80 Pulse Rate [Pulse Oximeter] Pulse Rate [Right Radial] Respiratory Rate Blood Pressure 94/55 L 88/65 L Blood Pressure [Le ft Upper Arm] Blood Pressure [Ri ght Arm] Pulse Oximetry 98 99 98 Oxygen Delivery [facility] 02/16/24 14:51 02/16/24 15:01 02/16/24 15:02 Temperature Pulse Rate 80 82 80 Pulse Rate [Pulse Oximeter] Pulse Rate [Right Radial] Respiratory Rate Blood Pressure 86/61 L 99/63 Blood Pressure [Le ft Upper Arm] Blood Pressure [Ri ght Arm] Pulse Oximetry 99 98 99 Oxygen Delivery [facility] 02/16/24 15:10 02/16/24 15:10 02/16/24 15:15 Temperature Pulse Rate 79 79 80 Pulse Rate [Pulse Oximeter] Pulse Rate [Right Radial] Respiratory Rate Blood Pressure 93/61 93/61 Blood Pressure [Le ft Upper Arm] Blood Pressure [Ri ght Arm] Pulse Oximetry 98 98 98 Oxygen Delivery [facility] 02/16/24 15:21 02/16/24 15:30 02/16/24 15:31 Temperature Pulse Rate 84 83 82 Pulse Rate [Pulse Oximeter] Pulse Rate [Right Radial] Respiratory Rate Blood Pressure 107/69 102/73 Blood Pressure [Le ft Upper Arm] Blood Pressure [Ri ght Arm] Pulse Oximetry 98 98 98 Oxygen Delivery [facility] 02/16/24 15:32 02/16/24 15:44 02/16/24 15:45 Temperature Pulse Rate 83 87 86 Pulse Rate [Pulse Oximeter] Pulse Rate [Right Radial] Respiratory Rate Blood Pressure 105/64 Blood Pressure [Le ft Upper Arm] Blood Pressure [Ri ght Arm] Pulse Oximetry 98 99 99 Oxygen Delivery [facility] 02/16/24 15:51 02/16/24 15:51 02/16/24 16:00 Temperature Pulse Rate 84 84 80 Pulse Rate [Pulse Oximeter] Pulse Rate [Right Radial] Respiratory Rate Blood Pressure 101/64 101/64 Blood Pressure [Le ft Upper Arm] Blood Pressure [Ri ght Arm] Pulse Oximetry 99 99 98 Oxygen Delivery [facility] 02/16/24 16:01 02/16/24 16:02 02/16/24 16:11 Temperature Pulse Rate 79 81 82 Pulse Rate [Pulse Oximeter] Pulse Rate [Right Radial] Respiratory Rate Blood Pressure 87/64 L 100/62 Blood Pressure [Le ft Upper Arm] Blood Pressure [Ri ght Arm] Pulse Oximetry 98 98 99 Oxygen Delivery [facility] 02/16/24 16:11 02/16/24 16:15 02/16/24 16:21 Temperature Pulse Rate 82 80 83 Pulse Rate [Pulse Oximeter] Pulse Rate [Right Radial] Respiratory Rate Blood Pressure 100/62 96/60 Blood Pressure [Le ft Upper Arm] Blood Pressure [Ri ght Arm] Pulse Oximetry 99 98 98 Oxygen Delivery [facility] 02/16/24 16:30 02/16/24 16:31 02/16/24 16:41 Temperature Pulse Rate 79 81 79 Pulse Rate [Pulse Oximeter] Pulse Rate [Right Radial] Respiratory Rate Blood Pressure 93/62 92/57 L Blood Pressure [Le ft Upper Arm] Blood Pressure [Ri ght Arm] Pulse Oximetry 98 98 96 Oxygen Delivery [facility] 02/16/24 16:42 02/16/24 16:45 02/16/24 16:51 Temperature Pulse Rate 82 83 84 Pulse Rate [Pulse Oximeter] Pulse Rate [Right Radial] Respiratory Rate Blood Pressure 105/69 Blood Pressure [Le ft Upper Arm] Blood Pressure [Ri ght Arm] Pulse Oximetry 99 99 99 Oxygen Delivery [facility] 02/16/24 17:04 Temperature 98.2 F Pulse Rate Pulse Rate [Pulse Oximeter] Pulse Rate [Right Radial] 84 Respiratory Rate 20 Blood Pressure Blood Pressure [Le ft Upper Arm] Blood Pressure [Ri ght Arm] 112/70 Pulse Oximetry 97 Oxygen Delivery [facility] Hospitalist - H&P: Result Labs Labs: Short CBC 02/16/24 Range/Units 14:05 WBC 6.26 (4.50-11.00) K/uL Hgb 7.9 L* (13.5-17.5) gm/dL Hct 25.9 L (37.0-53.0) % Plt Count 219 (140-440) K/uL BMP 02/16/24 14:05 Sodium 132 L Potassium 4.0 Chloride 104 Carbon Dioxide 17 L BUN 37 H Creatinine 4.4 H Glucose 111 Calcium 9.0 Liver Function 02/16/24 Range/Units 14:05 Total Bilirubin 0.4 (0.1-1.5) mg/dL AST 49 H (12-35) U/L ALT 63 H (4-50) U/L Alkaline Phosphatase 84 (40-150) U/L Albumin 4.3 (3.3-5.0) g/dL Urine 02/16/24 Range/Units 15:40 Urine Color Yellow (Yellow) Urine Appearance Clear (Clear) Urine pH 6.0 (5.0-8.5) Ur Specific [place] 1.010 (1.000-1.030) Urine Protein 1+ A (Negative) Urine Glucose (UA) Negative (Negative) Assessment and Plan Assessment and plan (1) COVID: Problem comment: - 02/16/2024: Will monitor closely in hospital with COVID precautions. Not a candidate to initiate Paxil of ear at this time. Does not meet eligibility criteria for dexamethasone. Loose stools possibly related to COVID status. Status: Acute (2) Anemia: Problem comment: - in the slightly dehydrated state hemoglobin is 7.9. Previous baseline between 9 and 10. Most recent hemoglobin about a year ago was 12.5. - await stool for occult blood. - check serum iron studies, ferritin, reticulocyte count, B12, folate - consider peripheral smear and EGD and colonoscopy Status: Acute (3) Acute kidney injury: Problem comment: - baseline creatinine 1.5-1.9. Current creatinine of 4.4. - suspect due to hypotension. Treat the hypotension. - IV fluids and recheck creatinine Status: Acute (4) Acute hypotension: Problem comment: - hold antihypertensive medications - urine demonstrates granular casts - IVF Status: Acute (5) GERD (gastroesophageal reflux disease): Problem comment: - history of esophageal erosions - on chronic PPI Status: Acute Plan 1. I reviewed my impression and recommendations with the patient. 2. Answered his questions to satisfaction. 3. Patient agreeable with above stated plans and recommendations. Total Time Spent Total Time Spent: 70 minutes
[2024-02-16] MEDS: 0.9 % SODIUM CHLORIDE 1000 ml 1,000 ML 125 ML IV (17:41)
[2024-02-16] MEDS: SODIUM CHLORIDE 0.9 % (FLUSH) 10 ML SYRINGE 5 ML IVF (17:51)
[2024-02-16] MEDS: PANTOPRAZOLE SODIUM 40 MG INJ IVP (17:51)
--- NOTE | 2024-02-16 18:14 | PC.NURSE ---
End of Shift Note: Patient was admitted from the ER this evening. Complaining of cough and increase weakness and lightheaded are the complaints he told this administrative underwriter. NO complaints of pain at this time. Admission completed and all questions have been answered. He is alert and orientated. Did ask that if he needs to go to the bathroom to please use his call light. He tolerate his diet this evening states This is the most I have eaten in a couple of days. Complains of having a decreased appetite and also states but I don't do much so I don't get hungry. Will continue to monitor until next shift arrives.
--- NOTE | 2024-02-16 18:35 | PC.NURSE ---
did finish a 500 cc bolus when patient arrived to med/surg that was started in the ER.
[2024-02-17] VITALS (45 sets, daily range): BP systolic 78–117; BP diastolic 43–74; PULSE 71–87; RESP 16–18; TEMP 36.7–37; O2SAT 94–98; BMI 31.6
--- NOTE | 2024-02-17 05:41 | PC.NURSE ---
[id number] Pt slept on and off during night. using urinal independently at bedside, denies feeling lightheaded/dizzy although pt hypotensive. denies N/V. afebrile during shift. denies pain.
[2024-02-17] MEDS: OMEPRAZOLE 20 MG CAPSULE DR 40 MG PO (06:09)
[2024-02-17 06:51] LABS: HCO3 VBG 19 mmol/L (21-28); Lactate* 0.4 mmol/L (0.5-1.9); PCO2 VBG 40 mmHG (40-50); PO2 VBG 30.4 mmHG (25-47); pH VBG 7.271 (7.32-7.43)
[2024-02-17 06:55] LABS: Hematocrit 21.9 % (37.0-53.0); Immature Reticulocyte Fraction 16.6 % (2.3-13.4); Mean Corpuscular HGB Conc 30 gm/dL (32-36); Mean Corpuscular Hemoglobin 26 pg (26-34); Mean Corpuscular Volume 88 fL (80-100); Platelet Count* 189 K/uL (140-440); Reticulocyte Hemoglobin Equivi 26.8 pg (29.0-35.0); Reticulocyte Percent 1.5 % (0.5-2.0); Reticulocytes Absolute 0.04 # (0.03-0.08)
[2024-02-17 06:58] LABS: Hemoglobin* 6.6 gm/dL (13.5-17.5)
[2024-02-17 07:01] LABS: Hemoglobin A1C* 5.9 % (0-5.6)
[2024-02-17 07:17] LABS: Chloride* 110 mmol/L (96-114); Potassium* 3.9 mmol/L (3.6-5.1); Sodium* 134 mmol/L (135-149)
[2024-02-17 07:20] LABS: Creatinine* 3.9 mg/dL (0.5-1.5); Est. Creatinine Clearance* 18.36; Estimated Glomerular Filt Rate 17 ml/min
[2024-02-17 07:21] LABS: Anion Gap 5 mEq/L (7-15); Blood Urea Nitrogen* 33 mg/dL (7-30); Calcium* 8.6 mg/dL (8.4-10.6); Carbon Dioxide* 19 mmol/L (20-32); Glucose* 92 mg/dL (60-115); Magnesium* 1.9 mg/dL (1.5-2.6); Phosphorus* 4.5 mg/dL (2.5-4.5)
[2024-02-17 07:24] LABS: C Reactive Protein* 0.5 mg/dL (0.5-1.0)
[2024-02-17 07:33] LABS: Slide Review Reflex No
[2024-02-17 07:39] LABS: Procalcitonin* 0.37 ng/mL (<0.50)
[2024-02-17 07:52] LABS: Iron* 39 ug/dL (49-181)
[2024-02-17 07:55] LABS: Hemoglobin* 6.7 gm/dL (13.5-17.5)
[2024-02-17 07:57] LABS: Ferritin* 18.3 ng/mL (17.9-464.0)
[2024-02-17 08:02] LABS: Percent Iron Saturation 12 % (20-50); Total Iron Binding Capacity 319 ug/dL (261-462)
[2024-02-17 08:05] LABS: NT Pro B Type NatriureticPept* 107 pg/mL
[2024-02-17 08:12] LABS: Vitamin B12* 821 pg/mL (243-894)
[2024-02-17 08:49] LABS: Troponin I* < 0.01 ng/mL (0.01-0.04)
[2024-02-17] MEDS: SODIUM CHLORIDE 0.9 % (FLUSH) 10 ML SYRINGE 5 ML IVF (09:01)
[2024-02-17] MEDS: EZETIMIBE 10 MG TABLET PO (09:01)
--- NOTE | 2024-02-17 10:35 | P.IMPN_ITS ---
Progress Note: A&P Assessment and plan (1) COVID: Problem details: - Positive test 02/15. symptoms began 02/12. - Not a candidate for Covid specific medications at this time. - Does not meet eligibility criteria for dexamethasone. - Loose stools possibly related to COVID status. Status: Acute (2) Anemia: Problem details: - Acute. no obvious bleeding. -guaiac test. no evidence of hemolysis. normo cytic. iron deficient. b12 and ferritin normal. - transfusing two units packed red blood cells. - last hemoglobin on record was 01/25 at 12.8 - consider peripheral smear and EGD and colonoscopy Status: Acute (3) Acute kidney injury: Problem details: - baseline creatinine 1.5-1.9. Current creatinine of 4.4, down to 3.9 this am. - suspect due to hypotension. similar episode in October 2022. creat was 5.5 and returned to baseline with hypertension med changes. (Dr. Quach - [place] [facility]) - IV fluids and trend UOP, creatinine, hemoglobin, blood pressure. Status: Acute (4) Acute hypotension: Problem details: - improving overnight without presssors; holding antihypertension meds. 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 -Dr. Wynn at [facility] (metoprolol and carvidelol with resulting hypotension so held) -daily aspirin (on hold with new anemia) Status: Acute (7) Hypertension: Problem details: on norvasc and lisinopril. holding. Status: Acute (8) GERD (gastroesophageal reflux disease): Problem details: - history of esophageal erosions - on chronic PPI Status: Acute (9) COPD (chronic obstructive pulmonary disease): Problem details: - 02/16/24: on no medications Status: Acute (10) Hyperlipidemia: Problem details: crestor and zetia. Status: Acute (11) Obesity: Status: Acute Subjective Date Seen: 02/17/24 Interval history: Daily Progress Note - Hospital #: [id number] CC: Admitted last night with KARELY, hypotension, Covid+ 24 HOUR UPDATE: Room air stable. mild hypotension. lowest MAP recorded 68. improved this morning. no pressors. reports feeling tired and dizzy/weak upon standing. RN reports he was dizzy bedside using urinal. coherent and pleasant. Notable Labs, Micro, Rads, Interventions: Hemoglobin decreased overnight. Presentation was 7.9 and this morning 6.6 and on repeat 6.7. His MCV is normal. He is iron deficient. His guaiac is negative. He has no active bleeding. No evidence of hemolysis. His B12 is normal. Folate pending. haptoglobin, LOU, LDH pending. Blood gas reveals a mild metabolic acidosis at 7.27. PCO2 is normal. Mild decrease in the bicarb at 19. Creatinine is improving, presentation 4.4. Now 3.9. Creatinine clearance 18. Similar GFR. Known chronic kidney disease. A1c 5.9, lactate normal. Iron 39. 12% saturation. BNP normal. CRP undetectable. Troponin undetectable. Electrolytes are reassuring. His sodium is 134, potassium normal. Chloride normal. Urine yesterday did show some active sediment. culture pending. CXR reviewed. Objective: tired appearing but better clinically than his chart review would have predicted. good historian and attention to detail noted. Vitals: see above Lungs: Clear. No wheezes. Cardiac: S1S2. Disposition/Potential discharge - Home when able Today I spent 50minutes seeing the patient, reviewing Expanse and EPIC notes/diagnostics, discussing the care plan with our care time that includes social work, PT/OT, pharmacy, RT, group home and documenting my impressions and plan in the medical record. Exam Const: Vital Signs, click to edit/add: Vital Signs - 24 hr 02/16/24 13:39 02/16/24 14:01 02/16/24 14:02 Temperature 97.2 F L Pulse Rate 89 87 Pulse Rate [Pulse Oximeter] 95 Pulse Rate [Right Radial] Pulse Rate [orthos tatic lying Right Radial] Pulse Rate [orthos tatic sitting Righ t Radial] Pulse Rate [orthos tatic standing Rig ht Radial] Respiratory Rate 20 Blood Pressure 65/47 L Blood Pressure [Le ft Upper Arm] 89/60 L Blood Pressure [Ri ght Arm] Blood Pressure [or thostatic lying Ri ght Arm] Blood Pressure [or thostatic sitting Right Arm] Blood Pressure [or thostatic standing Right Arm] Pulse Oximetry 98 99 98 [facility] 02/16/24 14:04 02/16/24 14:11 02/16/24 14:15 Temperature Pulse Rate 84 81 81 Pulse Rate [Pulse Oximeter] Pulse Rate [Right Radial] Pulse Rate [orthos tatic lying Right Radial] Pulse Rate [orthos tatic sitting Righ t Radial] Pulse Rate [orthos tatic standing Rig ht Radial] Respiratory Rate Blood Pressure 83/54 L 86/58 L Blood Pressure [Le ft Upper Arm] Blood Pressure [Ri ght Arm] Blood Pressure [or thostatic lying Ri ght Arm] Blood Pressure [or thostatic sitting Right Arm] Blood Pressure [or thostatic standing Right Arm] Pulse Oximetry 99 99 99 Oxygen Delivery Nj thod 02/16/24 14:21 02/16/24 14:22 02/16/24 14:30 Temperature Pulse Rate 81 81 80 Pulse Rate [Pulse Oximeter] Pulse Rate [Right Radial] Pulse Rate [orthos tatic lying Right Radial] Pulse Rate [orthos tatic sitting Righ t Radial] Pulse Rate [orthos tatic standing Rig ht Radial] Respiratory Rate Blood Pressure 95/58 L Blood Pressure [Le ft Upper Arm] Blood Pressure [Ri ght Arm] Blood Pressure [or thostatic lying Ri ght Arm] Blood Pressure [or thostatic sitting Right Arm] Blood Pressure [or thostatic standing Right Arm] Pulse Oximetry 98 98 98 Oxygen Delivery Nj thod 02/16/24 14:31 02/16/24 14:41 02/16/24 14:45 Temperature Pulse Rate 84 81 80 Pulse Rate [Pulse Oximeter] Pulse Rate [Right Radial] Pulse Rate [orthos tatic lying Right Radial] Pulse Rate [orthos tatic sitting Righ t Radial] Pulse Rate [orthos tatic standing Rig ht Radial] Respiratory Rate Blood Pressure 94/55 L 88/65 L Blood Pressure [Le ft Upper Arm] Blood Pressure [Ri ght Arm] Blood Pressure [or thostatic lying Ri ght Arm] Blood Pressure [or thostatic sitting Right Arm] Blood Pressure [or thostatic standing Right Arm] Pulse Oximetry 98 99 98 Oxygen Delivery Nj thod 02/16/24 14:51 02/16/24 15:01 02/16/24 15:02 Temperature Pulse Rate 80 82 80 Pulse Rate [Pulse Oximeter] Pulse Rate [Right Radial] Pulse Rate [orthos tatic lying Right Radial] Pulse Rate [orthos tatic sitting Righ t Radial] Pulse Rate [orthos tatic standing Rig ht Radial] Respiratory Rate Blood Pressure 86/61 L 99/63 Blood Pressure [Le ft Upper Arm] Blood Pressure [Ri ght Arm] Blood Pressure [or thostatic lying Ri ght Arm] Blood Pressure [or thostatic sitting Right Arm] Blood Pressure [or thostatic standing Right Arm] Pulse Oximetry 99 98 99 Oxygen Delivery Nj thod 02/16/24 15:10 02/16/24 15:10 02/16/24 15:15 Temperature Pulse Rate 79 79 80 Pulse Rate [Pulse Oximeter] Pulse Rate [Right Radial] Pulse Rate [orthos tatic lying Right Radial] Pulse Rate [orthos tatic sitting Righ t Radial] Pulse Rate [orthos tatic standing Rig ht Radial] Respiratory Rate Blood Pressure 93/61 93/61 Blood Pressure [Le ft Upper Arm] Blood Pressure [Ri ght Arm] Blood Pressure [or thostatic lying Ri ght Arm] Blood Pressure [or thostatic sitting Right Arm] Blood Pressure [or thostatic standing Right Arm] Pulse Oximetry 98 98 98 Oxygen Delivery Nj thod 02/16/24 15:21 02/16/24 15:30 02/16/24 15:31 Temperature Pulse Rate 84 83 82 Pulse Rate [Pulse Oximeter] Pulse Rate [Right Radial] Pulse Rate [orthos tatic lying Right Radial] Pulse Rate [orthos tatic sitting Righ t Radial] Pulse Rate [orthos tatic standing Rig ht Radial] Respiratory Rate Blood Pressure 107/69 102/73 Blood Pressure [Le ft Upper Arm] Blood Pressure [Ri ght Arm] Blood Pressure [or thostatic lying Ri ght Arm] Blood Pressure [or thostatic sitting Right Arm] Blood Pressure [or thostatic standing Right Arm] Pulse Oximetry 98 98 98 Oxygen Delivery Nj thod 02/16/24 15:32 02/16/24 15:44 02/16/24 15:45 Temperature Pulse Rate 83 87 86 Pulse Rate [Pulse Oximeter] Pulse Rate [Right Radial] Pulse Rate [orthos tatic lying Right Radial] Pulse Rate [orthos tatic sitting Righ t Radial] Pulse Rate [orthos tatic standing Rig ht Radial] Respiratory Rate Blood Pressure 105/64 Blood Pressure [Le ft Upper Arm] Blood Pressure [Ri ght Arm] Blood Pressure [or thostatic lying Ri ght Arm] Blood Pressure [or thostatic sitting Right Arm] Blood Pressure [or thostatic standing Right Arm] Pulse Oximetry 98 99 99 Oxygen Delivery Me thod 02/16/24 15:51 02/16/24 15:51 02/16/24 16:00 Temperature Pulse Rate 84 84 80 Pulse Rate [Pulse Oximeter] Pulse Rate [Right Radial] Pulse Rate [orthos tatic lying Right Radial] Pulse Rate [orthos tatic sitting Righ t Radial] Pulse Rate [orthos tatic standing Rig ht Radial] Respiratory Rate Blood Pressure 101/64 101/64 Blood Pressure [Le ft Upper Arm] Blood Pressure [Ri ght Arm] Blood Pressure [or thostatic lying Ri ght Arm] Blood Pressure [or thostatic sitting Right Arm] Blood Pressure [or thostatic standing Right Arm] Pulse Oximetry 99 99 98 Oxygen Delivery Nj thod 02/16/24 16:01 02/16/24 16:02 02/16/24 16:11 Temperature Pulse Rate 79 81 82 Pulse Rate [Pulse Oximeter] Pulse Rate [Right Radial] Pulse Rate [orthos tatic lying Right Radial] Pulse Rate [orthos tatic sitting Righ t Radial] Pulse Rate [orthos tatic standing Rig ht Radial] Respiratory Rate Blood Pressure 87/64 L 100/62 Blood Pressure [Le ft Upper Arm] Blood Pressure [Ri ght Arm] Blood Pressure [or thostatic lying Ri ght Arm] Blood Pressure [or thostatic sitting Right Arm] Blood Pressure [or thostatic standing Right Arm] Pulse Oximetry 98 98 99 Oxygen Delivery Nj thod 02/16/24 16:11 02/16/24 16:15 02/16/24 16:21 Temperature Pulse Rate 82 80 83 Pulse Rate [Pulse Oximeter] Pulse Rate [Right Radial] Pulse Rate [orthos tatic lying Right Radial] Pulse Rate [orthos tatic sitting Righ t Radial] Pulse Rate [orthos tatic standing Rig ht Radial] Respiratory Rate Blood Pressure 100/62 96/60 Blood Pressure [Le ft Upper Arm] Blood Pressure [Ri ght Arm] Blood Pressure [or thostatic lying Ri ght Arm] Blood Pressure [or thostatic sitting Right Arm] Blood Pressure [or thostatic standing Right Arm] Pulse Oximetry 99 98 98 Oxygen Delivery Me thod 02/16/24 16:30 02/16/24 16:31 02/16/24 16:41 Temperature Pulse Rate 79 81 79 Pulse Rate [Pulse Oximeter] Pulse Rate [Right Radial] Pulse Rate [orthos tatic lying Right Radial] Pulse Rate [orthos tatic sitting Righ t Radial] Pulse Rate [orthos tatic standing Rig ht Radial] Respiratory Rate Blood Pressure 93/62 92/57 L Blood Pressure [Le ft Upper Arm] Blood Pressure [Ri ght Arm] Blood Pressure [or thostatic lying Ri ght Arm] Blood Pressure [or thostatic sitting Right Arm] Blood Pressure [or thostatic standing Right Arm] Pulse Oximetry 98 98 96 Oxygen Delivery Me thod 02/16/24 16:42 02/16/24 16:45 02/16/24 16:51 Temperature Pulse Rate 82 83 84 Pulse Rate [Pulse Oximeter] Pulse Rate [Right Radial] Pulse Rate [orthos tatic lying Right Radial] Pulse Rate [orthos tatic sitting Righ t Radial] Pulse Rate [orthos tatic standing Rig ht Radial] Respiratory Rate Blood Pressure 105/69 Blood Pressure [Le ft Upper Arm] Blood Pressure [Ri ght Arm] Blood Pressure [or thostatic lying Ri ght Arm] Blood Pressure [or thostatic sitting Right Arm] Blood Pressure [or thostatic standing Right Arm] Pulse Oximetry 99 99 99 Oxygen Delivery Me thod 02/16/24 17:04 02/16/24 17:04 02/16/24 18:10 Temperature 98.2 F Pulse Rate Pulse Rate [Pulse Oximeter] Pulse Rate [Right Radial] 84 Pulse Rate [orthos tatic lying Right Radial] 84 Pulse Rate [orthos tatic sitting Righ t Radial] 88 Pulse Rate [orthos tatic standing Rig ht Radial] 98 Respiratory Rate 20 20 Blood Pressure Blood Pressure [Le ft Upper Arm] Blood Pressure [Ri ght Arm] 112/70 Blood Pressure [or thostatic lying Ri ght Arm] 112/70 Blood Pressure [or thostatic sitting Right Arm] 109/73 Blood Pressure [or thostatic standing Right Arm] 103/76 Pulse Oximetry 97 97 Oxygen Delivery Me thod Room Air Room Air 02/16/24 19:00 02/16/24 23:00 02/16/24 23:00 Temperature 98.2 F Pulse Rate Pulse Rate [Pulse Oximeter] Pulse Rate [Right Radial] 81 Pulse Rate [orthos tatic lying Right Radial] Pulse Rate [orthos tatic sitting Righ t Radial] Pulse Rate [orthos tatic standing Rig ht Radial] Respiratory Rate 18 18 18 Blood Pressure Blood Pressure [Le ft Upper Arm] Blood Pressure [Ri ght Arm] 112/70 Blood Pressure [or thostatic lying Ri ght Arm] Blood Pressure [or thostatic sitting Right Arm] Blood Pressure [or thostatic standing Right Arm] Pulse Oximetry 97 97 Oxygen Delivery Nj thod Room Air Room Air 02/16/24 23:00 02/16/24 23:00 02/17/24 03:00 Temperature 99.0 F 98.5 F Pulse Rate 77 Pulse Rate [Pulse Oximeter] Pulse Rate [Right Radial] 76 78 Pulse Rate [orthos tatic lying Right Radial] Pulse Rate [orthos tatic sitting Righ t Radial] Pulse Rate [orthos tatic standing Rig ht Radial] Respiratory Rate 18 16 Blood Pressure Blood Pressure [Le ft Upper Arm] Blood Pressure [Ri ght Arm] 90/57 L 89/58 L Blood Pressure [or thostatic lying Ri ght Arm] Blood Pressure [or thostatic sitting Right Arm] Blood Pressure [or thostatic standing Right Arm] Pulse Oximetry 97 97 Oxygen Delivery Nj thod Room Air Room Air 02/17/24 07:19 02/17/24 08:16 02/17/24 08:16 Temperature 98.6 F Pulse Rate 76 Pulse Rate [Pulse Oximeter] Pulse Rate [Right Radial] 80 Pulse Rate [orthos tatic lying Right Radial] Pulse Rate [orthos tatic sitting Righ t Radial] Pulse Rate [orthos tatic standing Rig ht Radial] Respiratory Rate 16 16 Blood Pressure Blood Pressure [Le ft Upper Arm] Blood Pressure [Ri ght Arm] 99/66 Blood Pressure [or thostatic lying Ri ght Arm] Blood Pressure [or thostatic sitting Right Arm] Blood Pressure [or thostatic standing Right Arm] Pulse Oximetry 97 96 Oxygen Delivery Nj thod Room Air Room Air 02/17/24 08:17 02/17/24 09:39 02/17/24 09:59 Temperature 98.1 F 98.1 F Pulse Rate 80 81 Pulse Rate [Pulse Oximeter] Pulse Rate [Right Radial] 80 Pulse Rate [orthos tatic lying Right Radial] Pulse Rate [orthos tatic sitting Righ t Radial] Pulse Rate [orthos tatic standing Rig ht Radial] Respiratory Rate 16 18 18 Blood Pressure 91/61 103/65 Blood Pressure [Le ft Upper Arm] Blood Pressure [Ri ght Arm] Blood Pressure [or thostatic lying Ri ght Arm] Blood Pressure [or thostatic sitting Right Arm] Blood Pressure [or thostatic standing Right Arm] Pulse Oximetry 96 95 Oxygen Delivery Me thod Labs Labs: Laboratory Results - last 24 hr 02/16/24 02/16/24 02/16/24 14:05 14:11 15:27 WBC 6.26 RBC 2.98 L Hgb 7.9 L* Hct 25.9 L MCV 87 MCH 27 MCHC 31 L RDW Coeff of Ana María 14.5 Plt Count 219 Neut % (Auto) 72.4 H Lymph % (Auto) 14.2 L [place] % (Auto) 11.8 H Eos % (Auto) 1.0 Baso % (Auto) 0.3 Neut # (Auto) 4.50 Lymph # (Auto) 0.90 [place] # (Auto) 0.70 Eos # (Auto) 0.06 Baso # (Auto) 0.02 Abs Immat Gran (auto) 0.02 Imm/Tot Granulo (auto) 0.3 Absolute Retic Percent Retic Immature Retic Fraction Retic Hgb Equivalent VBG pH VBG pCO2 VBG pO2 VBG HCO3 Sodium 132 L Potassium 4.0 Chloride 104 Carbon Dioxide 17 L Anion Gap 11 BUN 37 H Creatinine 4.4 H Estimated Creat Clear 16.27 Estimated GFR 14 Glucose 111 Hemoglobin A1c Lactate Calcium 9.0 Phosphorus Magnesium Iron TIBC % Saturation Ferritin Total Bilirubin 0.4 AST 49 H ALT 63 H Alkaline Phosphatase 84 Troponin I C-Reactive Protein < 0.5 L NT-Pro-B Natriuret Pep Total Protein 7.5 Albumin 4.3 Vitamin B12 Procalcitonin Urine Color Urine Appearance Urine pH Ur Specific [place] Urine Protein Urine Glucose (UA) Urine Ketones Urine Blood Urine Nitrite Urine Bilirubin Urine Urobilinogen Ur Leukocyte Esterase Urine RBC Urine WBC Ur Squamous Epith Cells Urine Bacteria Coarse Granular Casts Stool Occult Blood Negative SARS-CoV-2 (PCR) POSITIVE SARS-CoV-2 A Lab Acknowledgement POC Troponin I 0.00 L Blood Type Antibody Screen Crossmatch ([facility]) 02/16/24 02/17/24 02/17/24 15:40 06:01 07:40 WBC 5.40 RBC 2.50 L Hgb 6.6 L* 6.7 L* Hct 21.9 L MCV 88 MCH 26 MCHC 30 L RDW Coeff of Ana María Plt Count 189 Neut % (Auto) Lymph % (Auto) [place] % (Auto) Eos % (Auto) Baso % (Auto) Neut # (Auto) Lymph # (Auto) [place] # (Auto) Eos # (Auto) Baso # (Auto) Abs Immat Gran (auto) Imm/Tot Granulo (auto) Absolute Retic 0.04 Percent Retic 1.5 Immature Retic Fraction 16.6 H Retic Hgb Equivalent 26.8 L VBG pH 7.271 L VBG pCO2 40 VBG pO2 30.4 VBG HCO3 19 L Sodium 134 L Potassium 3.9 Chloride 110 Carbon Dioxide 19 L Anion Gap 5 L BUN 33 H Creatinine 3.9 H Estimated Creat Clear 18.36 Estimated GFR 17 Glucose 92 Hemoglobin A1c 5.9 H Lactate 0.4 L Calcium 8.6 Phosphorus 4.5 Magnesium 1.9 Iron 39 L TIBC 319 % Saturation 12 L Ferritin 18.3 Total Bilirubin AST ALT Alkaline Phosphatase Troponin I < 0.01 L C-Reactive Protein 0.5 NT-Pro-B Natriuret Pep 107 Total Protein Albumin Vitamin B12 821 Procalcitonin 0.37 Urine Color Yellow Urine Appearance Clear Urine pH 6.0 Ur Specific [place] 1.010 Urine Protein 1+ A Urine Glucose (UA) Negative Urine Ketones Negative Urine Blood 1+ A Urine Nitrite Negative Urine Bilirubin Negative Urine Urobilinogen 0.2 Ur Leukocyte Esterase Negative Urine RBC 0-2 Urine WBC 0-2 Ur Squamous Epith Cells Few Urine Bacteria Few A Coarse Granular Casts Few A Stool Occult Blood SARS-CoV-2 (PCR) Lab Acknowledgement POC Troponin I Blood Type A Positive Antibody Screen NEGATIVE Crossmatch ([facility]) See Detail 02/17/24 02/17/24 08:23 10:17 WBC RBC Hgb Hct MCV MCH MCHC RDW Coeff of Ana María Plt Count Neut % (Auto) Lymph % (Auto) [place] % (Auto) Eos % (Auto) Baso % (Auto) Neut # (Auto) Lymph # (Auto) [place] # (Auto) Eos # (Auto) Baso # (Auto) Abs Immat Gran (auto) Imm/Tot Granulo (auto) Absolute Retic Percent Retic Immature Retic Fraction Retic Hgb Equivalent VBG pH VBG pCO2 VBG pO2 VBG HCO3 Sodium Potassium Chloride Carbon Dioxide Anion Gap BUN Creatinine Estimated Creat Clear Estimated GFR Glucose Hemoglobin A1c Lactate Calcium Phosphorus Magnesium Iron TIBC % Saturation Ferritin Total Bilirubin AST ALT Alkaline Phosphatase Troponin I C-Reactive Protein NT-Pro-B Natriuret Pep Total Protein Albumin Vitamin B12 Procalcitonin Urine Color Urine Appearance Urine pH Ur Specific [place] Urine Protein Urine Glucose (UA) Urine Ketones Urine Blood Urine Nitrite Urine Bilirubin Urine Urobilinogen Ur Leukocyte Esterase Urine RBC Urine WBC Ur Squamous Epith Cells Urine Bacteria Coarse Granular Casts Stool Occult Blood SARS-CoV-2 (PCR) Lab Acknowledgement Test Added Test Added POC Troponin I Blood Type Antibody Screen Crossmatch ([facility])
[2024-02-17 11:21] LABS: Lactate Dehydrogenase* 166 U/L (120-246)
[2024-02-17] MEDS: 0.9 % SODIUM CHLORIDE 500 ML 500 ML IV (13:50)
[2024-02-17] MEDS: 0.9 % SODIUM CHLORIDE 1000 ml 1,000 ML 125 ML IV ×2 (14:40→22:28)
[2024-02-17 15:10] LABS: HCO3 VBG 18 mmol/L (21-28); PCO2 VBG 36 mmHG (40-50); PO2 VBG 32.3 mmHG (25-47); pH VBG 7.306 (7.32-7.43)
[2024-02-17 15:22] LABS: Albumin* 3.5 g/dL (3.3-5.0); Chloride* 112 mmol/L (96-114); Potassium* 3.6 mmol/L (3.6-5.1); Sodium* 136 mmol/L (135-149)
[2024-02-17 15:25] LABS: Blood Urea Nitrogen* 29 mg/dL (7-30); Carbon Dioxide* 16 mmol/L (20-32); Creatinine* 3.7 mg/dL (0.5-1.5); Est. Creatinine Clearance* 19.35; Estimated Glomerular Filt Rate 18 ml/min
[2024-02-17 15:26] LABS: Calcium* 8.3 mg/dL (8.4-10.6); Phosphorus* 3.2 mg/dL (2.5-4.5)
[2024-02-17 15:28] LABS: Anion Gap 8 mEq/L (7-15)
[2024-02-17 15:35] LABS: Glucose* 111 mg/dL (60-115)
--- NOTE | 2024-02-17 15:38 | PC.NURSE ---
end of shift. pt has been very pleasant. no pain . hgb was 6.6 this am, and pt got 2 units of blood. during 2 unit of blood pt bp dropped by 20+ points. md was called and updated. pt was made unit. 2nd IV was started. he is eating drinking and voiding. he is using a urinal at bedside, he is dizzy with this. pt is a DNR. pt also got a bolus and IV fluids. he has no pain or discomfort with this, he is on covid precautions. he was repositioned
[2024-02-17 16:05] LABS: Basophils Absolute Auto 0.01 K/uL (0.00-0.30); Basophils Percent Auto 0.2 % (0.0-3.0); Eosinophils Absolute Auto 0.04 K/uL (0.00-0.50); Eosinophils Percent Auto 0.7 % (0.0-7.0); Hematocrit 28.7 % (37.0-53.0); Immature Granulocytes Abs Auto 0.01 K/uL (0.00-0.30); Immature Granulocytes Pct Auto 0.2 %; Lymphocytes Percent Auto 15.2 % (20-44); Mean Corpuscular HGB Conc 31 gm/dL (32-36); Mean Corpuscular Hemoglobin 27 pg (26-34); Mean Corpuscular Volume 86 fL (80-100); Monocytes Percent Auto 12.2 % (0.0-11.0); Neutrophils Absolute Auto 3.87 K/uL (1.7-7.0); Neutrophils Percent Auto 71.5 % (42.0-72.0); Platelet Count* 173 K/uL (140-440); RDW Coefficient of Variation % 14.7 % (11.5-15.5); Red Blood Count 3.33 m/uL (4.30-5.90); White Blood Count* 5.41 K/uL (4.50-11.00)
[2024-02-17 16:06] LABS: Slide Review Reflex No
[2024-02-17 18:15] LABS: INR 0.91 (0.91-1.10); Prothrombin Time 12.8 Seconds
--- NOTE | 2024-02-17 22:44 | PC.NURSE ---
End of Shift: Patient pleasant and cooperative. Afebrile. Denies pain. BP remained low at start of shift, see frequent vital signs charting. Updated MD throughout shift, per MD not starting drip at this time. Patient states lightheadedness/dizziness improving throughout shift. O2 sats greater than 90% on room air. Up with SBA at bedside. Tolerating regular diet with no nausea.
--- NOTE | 2024-02-17 23:09 | PM.EN ---
Chart Event Note Time Seen by Provider: 15:00 Date Seen: 02/17/24 Chart Event Note: - patient moved to CCU status for hypotension - received 2U PRBCs, Hgb improved to 9 - BPs improved and we did not need to initiate pressors - continue to monitor as CCU patient, manage to ensure MAP >65 - patient comfortable with plan, would be willing to transfer to tertiary care facility if necessary
[2024-02-18] VITALS (11 sets, daily range): BP systolic 99–145; BP diastolic 67–88; PULSE 77–94; RESP 16–20; TEMP 36.6–36.7; O2SAT 95–96
[2024-02-18] MEDS: 0.9 % SODIUM CHLORIDE 1000 ml 1,000 ML 125 ML IV (06:07)
[2024-02-18] MEDS: OMEPRAZOLE 20 MG CAPSULE DR 40 MG PO (06:08)
--- NOTE | 2024-02-18 06:50 | PC.NURSE ---
Pt pleasant and cooperative this shift. VSS. B/P WNL all noc. Up I to use urinal. No reports of pain.
[2024-02-18 06:53] LABS: HCO3 VBG 19 mmol/L (21-28); Hematocrit 29.3 % (37.0-53.0); Hemoglobin* 9.2 gm/dL (13.5-17.5); Mean Corpuscular HGB Conc 31 gm/dL (32-36); Mean Corpuscular Hemoglobin 27 pg (26-34); Mean Corpuscular Volume 85 fL (80-100); PCO2 VBG 38 mmHG (40-50); PO2 VBG 38.5 mmHG (25-47); Platelet Count* 187 K/uL (140-440); Red Blood Count 3.43 m/uL (4.30-5.90); White Blood Count* 5.88 K/uL (4.50-11.00); pH VBG 7.302 (7.32-7.43)
[2024-02-18 07:08] LABS: Slide Review Reflex No
[2024-02-18 07:30] LABS: Albumin* 3.7 g/dL (3.3-5.0); Chloride* 113 mmol/L (96-114); Potassium* 3.8 mmol/L (3.6-5.1); Sodium* 139 mmol/L (135-149)
[2024-02-18 07:33] LABS: Anion Gap 9 mEq/L (7-15); Blood Urea Nitrogen* 24 mg/dL (7-30); Carbon Dioxide* 17 mmol/L (20-32); Creatinine* 3.2 mg/dL (0.5-1.5); Est. Creatinine Clearance* 22.38; Estimated Glomerular Filt Rate 21 ml/min; Glucose* 92 mg/dL (60-115); Phosphorus* 3.8 mg/dL (2.5-4.5)
[2024-02-18 07:34] LABS: Calcium* 8.8 mg/dL (8.4-10.6)
[2024-02-18] MEDS: EZETIMIBE 10 MG TABLET PO (08:41)
[2024-02-18] MEDS: SODIUM CHLORIDE 0.9 % (FLUSH) 10 ML SYRINGE 5 ML IVF (08:41)
--- NOTE | 2024-02-18 11:00 | PC.SOCIAL ---
Spoke with pt. to discuss discharge plans. Pt. is independent with all cares and lives with two other adults and one child that he rents from. Pt. states one of the adults works from home and can assist him if needed me but he feels he is ready to go home and start making meals again. Pt. is aware he can contact geriatric social worker if he needs additional resources at home.
--- NOTE | 2024-02-18 11:18 | PM.DS1 ---
DS: Providers Provider Date Seen: 02/18/24 Date of admission: 02/16/24 17:37 Primary care physician: Hi Adams MD Admitting Clinician: Sixto Harris MD Consults: 02/16/24 17:37 Consult to Nutrition [CONS] Routine Comment: Reason for consult:: Miscellaneous Comment: renal diet Attending Physician on discharge: Cassie Loja MD [facility] Date of Discharge: 02/18/24 DS: Diagnosis Discharge Diagnosis (1) COVID: Status: Acute Problem details: - Positive test 02/15. symptoms began 02/12. - Not a candidate for Covid specific medications at this time. - Discharge home with return precautions (2) Anemia: Status: Acute Problem details: - Acute. no obvious bleeding. -guaiac test. no evidence of hemolysis. normocytic. iron deficient. b12 and ferritin normal. - transfusing two units packed red blood cells. - last hemoglobin on record was 01/25 at 12.8 - hbg increased to 9.2 - I suspect the anemia is related to kidney disease with acute on chronic hypotension (which in turn is from overtreatment of HTN) - I will defer scoping to the outpatient provider but am starting oral iron and recommend iron infusions as an outpatient. (3) Acute kidney injury: Status: Acute Problem details: - baseline creatinine 1.5-1.9. Admit 4.4, down to 3.2 at discharge. holding amlodipine and lisinopril. f/u with PCP arranged. checking in with nephrology also advised. - suspect due to hypotension. similar episode in October 2022. creat was 5.5 and returned to baseline with hypertension med changes. (Dr. 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 Becka Quach (6) Coronary artery disease: Status: Acute Problem details: -03/26 NILS x 3 in RCA, NILS x 1 LAD. -Dr. Wynn at [facility] tried in the past (metoprolol and carvidelol with resulting hypotension so held) -daily aspirin (on hold with new anemia) (7) COPD (chronic obstructive pulmonary disease): Status: Acute Problem details: - 02/16/24: on no medications DS: Summary Hospital Course Hospital Course: FINAL DIAGNOSIS/FOLLOW UP ISSUES: 1. KARELY on CKD. recheck BMP at f/u. Best thought: chronic hypotension with hypertensive meds; covid; poor oral intake. 2. Covid 19 - no specific medications; not hypoxic. conservative care. 3. Acute Anemia - I suspect chronic kidney disease (acutely worse) along with prerenal dehydration from hypotension. transfused two units. follow hgb. No scope was done. Neg guaiac. BRIEF HOSPITAL COURSE: Patient was admitted for 3 days. Synopsis of acute inpatient issues are outlined above. Chronic medical conditions with notable findings outlined above. Patient was hypotensive upon arrival with his COVID. However, he was not hypoxic. He was noted to be significantly anemic. No obvious GI bleed was noted. His hemoglobin was down to 6.7. His guaiac was negative. He was transfused 2 units. His discharge hemoglobin was 9.4. I suspect his acute anemia was from acute on chronic kidney disease. Further outpatient workup may be necessary. He has chronic kidney disease that has been well documented and worked up in the past by [facility]. We felt his acute KARELY was likely due to over treatment of his hypertension and thus acute on chronic hypotension and acute COVID with poor oral intake all culminated in his creatinine of 4.4. His COVID was treated conservatively without any medication management. He was never hypoxic. On the day of discharge his hemoglobin was stable, his blood pressure was normal. He was satting greater than 95% on room air. He was able to walk the halls without any hypotension or dizziness. DISCHARGE MEDICATIONS: See Reconciled list - SIGNIFICANT CHANGES: Holding blood pressure medications and aspirin. Specific instructions to the patient and follow-up are outlined below. REVIEW OF SYSTEMS No new chest pain or dyspnea Pain controlled No voiding difficulties Tolerating diet challenge PHYSICAL EXAM: CONSTITUTIONAL: Alert, making jokes. Agreeable to discharge. VITAL SIGNS: see record. HEENT: Normocephalic, atraumatic. PERRL, EOMI, conjunctivae pink, no scleral icterus. Ears and nose externally normal. Pharynx normal. NECK: No JVD. No carotid bruit, no thyromegaly, no adenopathy. CHEST: Clear to auscultation bilaterally. HEART: S1 and S2 normal. Edema minimal ABDOMEN: Soft, nontender. Normal bowel sounds. MUSCULOSKELETAL: No gross joint deformity or swelling. NEURO: Cranial nerves intact. Grossly intact. No asymmetric findings. SKIN: No rashes, petechiae, concerning changes PSYCHIATRIC: Mood euthymic. DISPOSITION: Home with friends who he lives with. Time spent on discharge 37 minutes. Status at Discharge Functional status at discharge: independent ambulation Overall status at discharge: patient is progressing back to baseline Time Spent with Patient Time attestation: Total time spent providing and/or coordinating discharge services: Time spent: Greater than 30 minutes Exam Const: Vital Signs, click to edit/add: Vital Signs - 24 hr 02/17/24 11:44 02/17/24 11:54 02/17/24 12:05 Temperature 98.2 F 98.2 F 98.1 F Pulse Rate 78 78 84 Pulse Rate [Right Radial] Respiratory Rate 18 18 18 Blood Pressure 100/63 100/63 81/56 L Blood Pressure [Ri ght Arm] Pulse Oximetry 97 97 98 Oxygen Delivery Me thod 02/17/24 12:10 02/17/24 12:40 02/17/24 12:45 Temperature 98.0 F Pulse Rate 78 Pulse Rate [Right Radial] 81 80 Respiratory Rate 18 18 18 Blood Pressure 101/68 Blood Pressure [Ri ght Arm] 81/56 L 81/53 L Pulse Oximetry 98 97 97 [facility] Room [facility] 02/17/24 12:50 02/17/24 12:50 02/17/24 13:00 Temperature 98.2 F 98.2 F Pulse Rate 87 Pulse Rate [Right Radial] 87 85 Respiratory Rate 18 18 18 Blood Pressure 78/45 L Blood Pressure [Ri ght Arm] 78/45 L 90/54 L Pulse Oximetry 97 97 97 [facility] Room Air 02/17/24 13:10 02/17/24 13:34 02/17/24 13:45 Temperature 98.2 F Pulse Rate Pulse Rate [Right Radial] 85 87 81 Respiratory Rate 18 18 18 Blood Pressure Blood Pressure [Ri ght Arm] 85/55 L 78/45 L 87/53 L Pulse Oximetry 97 97 96 Oxygen Delivery Me thod Room Air Room Air Room Air 02/17/24 14:00 02/17/24 14:19 02/17/24 14:30 Temperature 98.2 F Pulse Rate Pulse Rate [Right Radial] 71 75 81 Respiratory Rate 18 18 18 Blood Pressure Blood Pressure [Ri ght Arm] 78/43 L 85/53 L 94/58 L Pulse Oximetry 94 95 97 Oxygen Delivery Me thod Room Air Room Air Room Air 02/17/24 15:00 02/17/24 15:00 02/17/24 15:00 Temperature Pulse Rate 81 Pulse Rate [Right Radial] 81 Respiratory Rate 18 Blood Pressure Blood Pressure [Ri ght Arm] Pulse Oximetry 97 Oxygen Delivery Me thod Room Air 02/17/24 15:01 02/17/24 15:02 02/17/24 15:15 Temperature 98.2 F 98.2 F 98.2 F Pulse Rate 85 Pulse Rate [Right Radial] 83 71 Respiratory Rate 18 18 18 Blood Pressure 93/62 Blood Pressure [Ri ght Arm] 93/62 94/55 L Pulse Oximetry 97 97 97 Oxygen Delivery [place] thod Room Air Room Air 02/17/24 15:31 02/17/24 15:45 02/17/24 16:00 Temperature Pulse Rate Pulse Rate [Right Radial] 76 77 Respiratory Rate Blood Pressure Blood Pressure [Ri ght Arm] 94/60 105/64 101/64 Pulse Oximetry Oxygen Delivery Me thod 02/17/24 16:15 02/17/24 16:30 02/17/24 16:45 Temperature Pulse Rate Pulse Rate [Right Radial] 81 Respiratory Rate Blood Pressure Blood Pressure [Ri ght Arm] 100/74 94/64 87/59 L Pulse Oximetry Oxygen Delivery Me thod 02/17/24 17:03 02/17/24 17:18 02/17/24 17:30 Temperature Pulse Rate Pulse Rate [Right Radial] 83 82 Respiratory Rate Blood Pressure Blood Pressure [Ri ght Arm] 87/48 L 97/63 102/59 L Pulse Oximetry Oxygen Delivery Me thod 02/17/24 17:45 02/17/24 18:00 02/17/24 18:17 Temperature Pulse Rate Pulse Rate [Right Radial] 83 79 78 Respiratory Rate Blood Pressure Blood Pressure [Ri ght Arm] 117/51 L 102/65 105/68 Pulse Oximetry Oxygen Delivery Me thod 02/17/24 19:00 02/17/24 19:05 02/17/24 20:00 Temperature 98.5 F Pulse Rate 78 Pulse Rate [Right Radial] 79 78 Respiratory Rate 18 Blood Pressure Blood Pressure [Ri ght Arm] 91/62 98/63 Pulse Oximetry 96 Oxygen Delivery Me thod Room Air 02/17/24 21:00 02/17/24 22:00 02/17/24 23:00 Temperature 98.1 F Pulse Rate 77 Pulse Rate [Right Radial] 75 77 Respiratory Rate 18 16 Blood Pressure Blood Pressure [Ri ght Arm] 107/71 112/70 Pulse Oximetry 94 94 Oxygen Delivery Me thod Room Air Room Air 02/18/24 00:00 02/18/24 00:00 02/18/24 02:00 Temperature 97.8 F 97.8 F Pulse Rate Pulse Rate [Right Radial] 80 77 Respiratory Rate 20 16 Blood Pressure Blood Pressure [Ri ght Arm] 120/82 128/88 Pulse Oximetry 95 95 96 Oxygen Delivery Me thod Room Air Room Air Room Air 02/18/24 03:34 02/18/24 04:00 02/18/24 06:46 Temperature 98.1 F 98.1 F Pulse Rate 77 Pulse Rate [Right Radial] 94 Respiratory Rate 16 16 Blood Pressure Blood Pressure [Ri ght Arm] 106/67 125/75 Pulse Oximetry 96 96 [facility] Room Air 02/18/24 07:00 02/18/24 07:15 02/18/24 08:00 Temperature 98.1 F Pulse Rate 78 Pulse Rate [Right Radial] 82 Respiratory Rate 16 16 Blood Pressure Blood Pressure [Ri ght Arm] 124/82 Pulse Oximetry 96 96 Oxygen Delivery [place] thod Room Air Room Air 02/18/24 09:54 02/18/24 10:05 Temperature 97.8 F Pulse Rate Pulse Rate [Right Radial] 88 91 Respiratory Rate 16 20 Blood Pressure Blood Pressure [Ri ght Arm] 133/84 145/84 H Pulse Oximetry 95 96 Oxygen Delivery Me thod Room Air Room Air DS: Data Data Completed and Pending Labs on day of discharge: Labs from last 24 hours 02/18/24 02/17/24 02/17/24 06:17 15:00 06:01 WBC 5.88 5.41 RBC 3.43 L 3.33 L Hgb 9.2 L 9.0 L Hct 29.3 L 28.7 L MCV 85 86 MCH 27 27 MCHC 31 L 31 L RDW Coeff of Ana María 14.7 Plt Count 187 173 Neut % (Auto) 71.5 Lymph % (Auto) 15.2 L [place] % (Auto) 12.2 H Eos % (Auto) 0.7 Baso % (Auto) 0.2 Neut # (Auto) 3.87 Lymph # (Auto) 0.80 L [place] # (Auto) 0.70 Eos # (Auto) 0.04 Baso # (Auto) 0.01 Abs Immat Gran (auto) 0.01 Imm/Tot Granulo (auto) 0.2 INR 0.91 VBG pH 7.302 L 7.306 L VBG pCO2 38 L 36 L VBG pO2 38.5 32.3 VBG HCO3 19 L 18 L Sodium 139 136 Potassium 3.8 3.6 Chloride 113 112 Carbon Dioxide 17 L 16 L Anion Gap 9 8 BUN 24 29 Creatinine 3.2 H 3.7 H Estimated Creat Clear 22.38 19.35 Estimated GFR 21 18 Glucose 92 111 Lactate 1.0 Calcium 8.8 8.3 L Phosphorus 3.8 3.2 Lactate Dehydrogenase 166 Albumin 3.7 3.5 TSH 2.040 Blood Type A Positive Antibody Screen NEGATIVE Direct Antiglob Test NEGATIVE Crossmatch ([facility]) See Detail Preliminary micro results at discharge 02/16/24 15:40 Urine Culture - Preliminary Urine,Clean Catch No growth. Discharge Plan Discharge Disposition: Home, Self-Care Date of Admission: 02/16/24 17:37 Attending Provider on Discharge: Cassie Loja Primary Care Provider: Hi Adams Condition: Improved Anticipated Discharge Date/Time: 02/18/24 10:58 Discharge Medications: New ferrous sulfate [Iron (ferrous sulfate)] 325 mg (65 mg iron) tablet 325 mg PO DAILY Qty: 30 0RF Continued ezetimibe 10 mg tablet 10 mg PO DAILY Qty: 90 3RF nitroglycerin 0.4 mg tablet, sublingual 0.4 mg sublingual Q5M PRN (Reason: chest pain) Qty: 25 0RF Rx Instructions: As needed for chest pain x3 doses. omeprazole 40 mg capsule,delayed release(DR/EC) 40 mg PO QDAY Qty: 90 3RF rosuvastatin 40 mg tablet 40 mg PO DAILY Qty: 90 3RF Held amlodipine 10 mg tablet 10 mg PO QDAY Qty: 90 3RF Hold Instructions: Resume on 02/25/24. lisinopril 5 mg tablet 5 mg PO QDAY Qty: 90 3RF Hold Instructions: Resume on 02/25/24. Discharge Orders: Discharge Order (Routine); Ordered 02/18/24 Ordered By: Cassie Loja Additional Instructions: 1. Take your blood pressure twice a day and write down the numbers. I'm holding your lisinopril and amlodipine. If any of your BP is 180 or higher or 100 or higher, go ahead and take 1/2 tab (2.5mg) of your lisinopril and recheck blood pressure in [address] Adams in the next 1-2 weeks to get your labs checked and discuss blood pressure medication directions. 2. I would like you to start an iron supplement. Dr. Adams will discuss if you need EGD or colonoscopy. He will watch your hemoglobin level. Iron infusions maybe ordered, depending on how your iron is tolerated and how your hemoglobin does. Activity Level: Activity as Tolerated Discharge Diet: Renal Follow Up Appointments: Hi Adams MD [Primary Care Provider] - (1-2 weeks for BP check, creatinine check and discuss the hypertension/CAD med reigmen.) Forms: [employer] Info Instructions
[2024-02-18] MEDS: ROSUVASTATIN CALCIUM 10 MG TABLET 40 MG PO (11:36)
--- NOTE | 2024-02-18 13:04 | PC.NURSE ---
Discharge: Patient pleasant and cooperative. Up independently in room. Vitals stable and WNL. Walked with staff in [place] x2, denies dizziness, Vitals remained WNL during and after walks, MD updated. x2 IV removed with catheter intact. Tolerating regular diet, denied nausea. Denied pain throughout day. Discharge instructions given, instructed on held medications and to take BP BID as well as how to take medication if BP >180 systolic. Informed patient to call hospital for questions or concerns. Discharged @ 1254 via wheelchair, private vehicle to home.
[2024-02-18 17:45] LABS: Folate, Serum 11.1 ng/mL (>=5.9)
[2024-02-18 19:30] LABS: Haptoglobin 235 mg/dL (30-200)
== END 2024-02-18 12:54 | disposition home or self-care (01) | DRG 682 ==
LOC: ED 16:08 → MEDSURG 16:47
PROVIDERS: Family Medicine; Physician Assistant; Admitting Provider Internal Medicine; Emergency Provider Family Medicine; PCP Family Medicine; Visit Provider Internal Medicine
DX: N17.9 Acute kidney failure, unspecified (principal); U07.1 COVID-19; A08.39 Other viral enteritis; E87.20 Acidosis, unspecified; I95.89 Other hypotension; D64.9 Anemia, unspecified; E86.0 Dehydration; R42 Dizziness and giddiness; I12.9 Hypertensive chronic kidney disease with stage 1 through stage 4 chronic kidney disease, or unspecified chronic kidney disease; N18.32 Chronic kidney disease, stage 3b; D63.1 Anemia in chronic kidney disease; E66.9 Obesity, unspecified; J44.9 Chronic obstructive pulmonary disease, unspecified; I25.10 Atherosclerotic heart disease of native coronary artery without angina pectoris; H35.30 Unspecified macular degeneration; K21.9 Gastro-esophageal reflux disease without esophagitis; E78.5 Hyperlipidemia, unspecified
CPT/HCPCS: 36415; 36430; 71045; 80048; 80053; 80069; 81001; 82270; 82607; 82728; 82746; 82803; 83010; 83036; 83540; 83550; 83605; 83615; 83735; 83880; 84100; 84145; 84443; 84484; 85018; 85025; 85027; 85045; 85610; 86140; 86850; 86880; 86900; 86901; 86922; 87086; 87635; 93005; 99285; 99291; A9270; J2470; J7030; P9016

== ENCOUNTER 2024-03-03 11:46 | Outpatient (CLI) | payer MEDICAID, SELFPAY ==
--- OUTSIDE RECORDS SUMMARY | 2024-03-03 11:52 | XMS_ITS | Clinical Summary ---
Author Organization [employer] [facility] [employer] [facility] Address [place], [place] [address] Care Team Providers Care Waterworks Operator Name Role Phone Hi Adams MD Primary Care Provider [phone] Allergies No known active allergies Medications Medication [...] 10 mg tabletIndications:Ronny nary artery disease involving [place] coronary artery without angina pectoris, unspecified whether [place] or transplanted heart Take 1 Tablet (10 [...] - 199 mg/dL 03/04/2021 4:24 PM CDT [facility]ATORY TRIGLYCERIDES 73 <150 mg/dL 03/04/2021 4:24 PM CDT [facility] HDL CHOLESTEROL 52 >40 mg/dL 4:24 PM CDT [facility] NON-HDL CHOLESTEROL 153(H) <145 mg/dl 03/04/2021 4:24 PM CDT [facility] CHOL/HDL RATIO 3.94 <4.50 03/04/2021 4:24 PM CDT [facility] LDL CHOLESTEROL 138(H) <=130 mg/dL 03/04/2021 4:24 PM CDT [facility] VLDL CHOLESTEROL 15 mg/dL 03/04/20 4:24 PM CDT [facility] PROVIDER ORDERED STATUS FASTING 03/04/2021 4:24 PM CDT [facility] Blood BLOOD SPECIMEN / Unknown Venipuncture / Unknown 03/04/2021 10:46 AM CDT 03/04/2021 10:46 AM CDT Chinmay Guerrero MD CHEMISTRY [employer] [facility] [address] [place] [address], from Last 3 Months or Most Recently Relevant to Health Maintenance Advance Directives * Full Code (Latest Code Status on File) Date Activated Date Inactivated Comments 03/07/2021 8:55 AM 03/08/2021 12:47 PM Question Answer Comments Code Status Discussion: Discussed Care Teams Waterworks Operator Relationship Specialty Start Date End Date Hi Adams MD [address] [place] [address] PCP - General Family Practice 02/12/21
== END 2024-03-03 11:47 | disposition home or self-care (01) ==
LOC: NFLDREF 11:50
PROVIDERS: PCP Family Medicine; Visit Provider Family Medicine
DX: N17.9 Acute kidney failure, unspecified (principal); N18.32 Chronic kidney disease, stage 3b
CPT/HCPCS: 80048

== ENCOUNTER 2024-05-02 11:00 | Outpatient (CLI) | payer MEDICAID, SELFPAY ==
--- OUTSIDE RECORDS SUMMARY | 2024-05-04 09:55 | XMS_ITS | Encounter Summary ---
Author Organization [facility] Address [address] [place] [address] Care Team Providers Care Nicker And Breaker Name Role Phone Unavailable Primary Care Provider Unavailabl e Reason for Visit * Appointment Request (Routine) - Closed Specialty Diagnoses / Procedures Referred By Contac t Referred To Contact Nephrology and Hypertension Referral ID Status Reason Start Date Expiration Date Visits Re quested Visits Authorized [id number] Closed 03/10/2024 03/10/2025 1 1 Encounter Details Date Type Department Care Team (Latest Contact Info) Description 03/14/2024 3:30 PM CDT External Outreach Division of Nephrology and Hypertension in [place], [place] [address] [place] [address] Becka Keene M.D., Ph.D. [address] [place] [address] Failure Renal Acute (Acute Kidney Injury) (HCC) (Primary Dx); Chronic Kidney Disease (CKD), Stage 3b Glomerular Filtration Rate (GFR) 30 To 44 (HCC); Hypertension Essential Primary; Anemia Of Chronic Renal Disease Social History Tobacco Use Types Packs/Day Years Used Date Smoking Tobacco: Former Cigarettes Smokeless Tobacco: Current Alcohol Use Standard Drinks/Week Comments Yes 0 (1 standard drink = 0.6 oz pur e alcohol) 9 cocktails per week Nutrition Answer Date Recorded Nutrition: EVOO Fat Source Unknown 01/10 Nutrition: Servings of Fruits/Vegetables per Day Not on file 01/10/2022 Dental Answer Date Recorded Dental: Regular Dentist Unknown 01/11/20 Sex and Gender Information Value Date Recorded Sex Assigned at Not on file Legal Sex Male 9:00 AM CDT Gender Identity Not on file Sexual Orientation Not on file documented as of this encounter Progress Notes * Becka Keene M.D., Ph.D. - 03/14/2024 3:30 PM CDT PROGRESS NOTE SUBJECTIVE CHIEF COMPLAINT / REASON FOR VISIT Follow up KARELY on CKD stage 3B [facility] [place] outreach visit Location: [facility] HISTORY OF PRESENT ILLNESS Perico Huerta is a 63 y.o. man who is seen for follow up. He has history of coronary artery disease who is status post 4 stents in February 2021. Also, historyof longstanding hypertension, diagnosed in 1999. He had kidney biopsy 03/2022 for evaluation of elevated creatinine, it showed atheroembolic disease. His baseline creatinine is 1.5 to 1.6 mg/dL. No history of NSAIDs. He caught COVID and was hospitalized, he was also hypotensive and anemic (Hb 6.7). His labs showed a Cr peaked at 4.4, lisinopril and amlodipine were held. Posteriorly, his lisinopril was restarted but he is off amlodipine. Repeat labs 1 week later showed Cr trending down to 2.3, but not back to baseline yet. He is doing well today. Asymptomatic. BP at home is in the 130s/80s. Today in clinic is 166/80. Patient has not noticed any lightheadedness, dizziness, vision changes, diaphoresis, chest pain, difficulty breathing, or edema. Patient has not noticed any changes in urinary habits. No hesitancy tourinate, no difficulty to urinate. OBJECTIVE BP 166/80 pulse 88 DIAGNOSTICS I have reviewed available labs in detail with patient. ASSESSMENT / PLAN #1 KARELY on CKD stage 3B #2 Hypertension #3 Anemia in CKD Patient is seen for follow up. His kidney function is improved but not back to his baseline. BP at goal, continue to hold amlodipine for now. Patient to continue to check BP and to keep good hydration of 2 L per day. Anemia improved. I will monitor iron studies in next visit. Return to clinic in 3 months Nolvia Quach M.D., Ph.D. documented in this encounter Plan of Treatment Not on file documented as of this encounter Visit Diagnoses Diagnosis Failure Renal Acute (Acute Kidney Injury) (HCC)- Primary Chronic Kidney Disease (CKD), Stage 3b Glomerular Filtration Rate (GFR) 30 To 44 (HCC) Hypertension Essential Primary Anemia Of Chronic Renal Disease documented in this encounter
--- OUTSIDE RECORDS SUMMARY | 2024-05-04 09:55 | XMS_ITS ---
Author Organization [facility] Address [address] [place] [address] Care Team Providers Care Market Research Interviewer Name Role Phone Unavailable Unavailable Unavailable Surgery Details Not on file Complications Check Surgery Details section. Procedure Estimated Blood Loss Check Surgery Details section. Procedure Findings Check Surgery Details section. Procedure Specimens Taken Check Surgery Details section.
--- OUTSIDE RECORDS SUMMARY | 2024-05-04 09:55 | XMS_ITS | Clinical Summary ---
Author Organization [facility] [employer] Address [place], [place] [address] Care Team Providers Care Rotary Machine Operator Name Role Phone Hi Adams MD Primary Care Provider [phone] Allergies No known active allergies Medications Medication [...] 10 mg tabletIndications:Ronny nary artery disease involving [place] coronary artery without angina pectoris, unspecified whether [place] or transplanted heart Take 1 Tablet (10 mg) by mouth once daily. 90 Tablet 3 09/26/2021 Active Active Problems Problem Noted Date Diagnosed Date COPD (chronic obstructive pulmonary disease) 08/2020 Dyslipidemia 03/07/2021 ASHD (arteriosclerotic heart disease) 03/07/2021 Overview (03/07/2021): - CCTA 02/22/2021 1. Borderline significant distal [...] age 18+ 1979 Hepatitis C screening for ag e 18-79 1979 Tetanus booster 1981 Colonoscopy through age 75 2006 Zoster (shingles) series for age 50+ (1 of 2) 2011 COVID-19 vaccine series ( season) 2024 09/03/2021, 02/26/2021, 02/05/2021 Influenza for age 50-64 03/06/2024 Lipids for age 45-75 03/04/2026 03/04/2021 Pneumococcal series for age 6-64 Aged Out No longer eligible b ased on patient's age to complete this topic Procedures Procedure Name Priority Date/Time Associated Diagnosis Comments LIPID PANEL W REFLEX MEASURED LDL Routine 03/04/2021 10:46 AM CDT Abnormal computed tomography angiography (CTA) from Last 3 Months or Most Recently Relevant to Health Maintenance Results * (ABNORMAL) LIPID PANEL W REFLEX MEASURED LDL (03/04/2021 10:46 AM CDT) CHOLESTEROL,TOTAL 205(H) 100 - 199 mg/dL 03/04/2021 4:24 PM CDT [facility] LAB[facility]ATORY TRIGLYCERIDES 73 <150 mg/dL 03/04/2021 4:24 PM CDT [facility] HDL CHOLESTEROL 52 >40 mg/dL 4:24 PM CDT [facility] NON-HDL CHOLESTEROL 153(H) <145 mg/dl 03/04/2021 4:24 PM CDT [facility] CHOL/HDL RATIO 3.94 <4.50 03/04/2021 4:24 PM CDT [facility] LDL CHOLESTEROL 138(H) <=130 mg/dL 03/04/2021 4:24 PM CDT [facility] VLDL CHOLESTEROL 15 mg/dL 03/04/20 4:24 PM CDT [facility] PROVIDER ORDERED STATUS FASTING 03/04/2021 4:24 PM CDT [facility] Blood BLOOD SPECIMEN / Unknown Venipuncture / Unknown 03/04/2021 10:46 AM CDT 03/04/2021 10:46 AM CDT Chinmay Guerrero MD CHEMISTRY [employer] [facility] [address] [place] [address], from Last 3 Months or Most Recently Relevant to Health Maintenance Advance Directives * Full Code (Latest Code Status on File) Date Activated Date Inactivated Comments 03/07/2021 8:55 AM 03/08/2021 12:47 PM Question Answer Comments Code Status Discussion: Discussed Care Teams Rotary Machine Operator Relationship Specialty Start Date End Date Hi Adams MD [address] [place] [id number] PCP - General Family Practice 02/12/21
--- OUTSIDE RECORDS SUMMARY | 2024-05-04 09:55 | XMS_ITS | Referral Summary ---
Author Organization [facility] Address [address] [place] [address] Care Team Providers Care Income Auditor Name Role Phone Unavailable Primary Care Provider Unavailabl e Source Comments Patient records contain information from all sites at [facility]. For routine questions regarding patient records, call [phone] during business hours, M-F 8:00 AM - 5:00 PM Central Time. Record requests for emergency care only can be directed to [phone] at any time.[facility] Encounters Date Type Department Care Team Description 03/14/2024 3:30 PM CDT External Outreach Division of Nephrology and Hypertension in [place], [place] [address] [place] [address] Becka Keene M.D., Ph.D. Failure Renal Acute (Acute Kidney Injury) (HCC) (Primary Dx); Chronic Kidney Disease (CKD), Stage 3b Glomerular Filtration Rate (GFR) 30 To 44 (HCC); Hypertension Essential Primary; Anemia Of Chronic Renal Disease from Last 3 Months Allergies No known active allergies Medications Ventolin HFA 90 mcg/actuation inhaler as needed. 2 Active amLODIPine (NORVASC) 10 mg tablet Take by mouth. 1 Active aspirin 81 mg chewable tablet Chew 81 mg. Active clopidogreL (PLAVIX) 75 mg tablet Take 75 mg by mouth daily. 2 Active Advair Diskus 250-50 mcg/act diskus inhaler INHALE 1 PUFF BY MOUTH TWICE A DAY - IN THE MORNING AND EVENING APPROXIMATELY 12 HOURS APART 2 Active lisinopriL (PRINIVIL,ZEST RIL) 5 mg tablet Take 1 tablet (5 mg total) by mouth daily. 90 tablet 3 3 Active Social History Tobacco Use Types Packs/Day Years Used Date Smoking Tobacco: Former Cigarettes Smokeless Tobacco: Current Tobacco Cessation:Ready to Q uit: Not Asked; Counseling Given: Not Answered Alcohol Use Standard [...] on file Sexual Orientation Not on file Last Filed Vital Signs Vital Sign Reading Time Taken Comments Blood Pressure 122/78 03/28/2022 4:21 PM CDT Pulse 72 03/28/2022 4:21 PM CDT Temperature 36.6 ??C (97.9 ??F) 03/28/2022 2:15 PM CD T Respiratory Rate - - Oxygen Saturation 97% 03/28/2022 2:15 PM CDT Inhaled Oxygen Concentration - - Weight - - Height - - Body Mass Index - - Plan of Treatment Not on file Insurance [facility]
--- OUTSIDE RECORDS SUMMARY | 2024-05-04 09:55 | XMS_ITS | Clinical Summary ---
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 For routine questions regarding patient records, call [phone] during business hours, M-F 8:00 AM - 5:00 PM Central Time. Record requests for emergency care only can be directed to [phone] at any time.[facility] Allergies No known active allergies Medications Ventolin [...] mouth daily. 90 tablet 3 3 Active Encounters Date Type Department Care Team Description 03/14/2024 3:30 PM CDT External Outreach Division of Nephrology and Hypertension in [place], [place] [address] [place] [address] Becka Keene M.D., Ph.D. Failure Renal Acute (Acute Kidney Injury) (HCC) (Primary Dx); Chronic Kidney Disease (CKD), Stage 3b Glomerular Filtration Rate (GFR) 30 To 44 (HCC); Hypertension Essential Primary; Anemia Of Chronic Renal Disease from Last 3 Months Social History Tobacco [...] 1960 FIT 1961 HIV Screening 1960 Hepatitis C Screening 1960 Pneumococcal vaccine (0-64 years) (2 of 2 - PCV) 03/11/2023 03/11/2022 Depression Screening (Annual PHQ-2) 07/06/2023 Fasting Glucose for Diabetes Screening 03/04/2024 03/04/2021 COVID-19 Vaccine ( season) 2024 05/07/2023, 09/03/2021, 02/26/2021, Additional history exists Influenza Vaccine (#1) 2024 , 04/30/2022, 04/22/2021, Additional history exists Lipid (Cholesterol) Screening 03/04/2026 03/04/2021 DTaP,Tdap,and Td Vaccines (2 - Td or Tdap) 06/13/2031 06/13/2021 Zoster Vaccines Completed 05/27/2022, 04/01/2022 IPV Vaccines Aged Out No longer eligi ble based on patient's age to complete this topic Insurance [employer]
== END 2024-05-02 11:01 | disposition home or self-care (01) ==
LOC: NFLDREF 05-04 09:53
PROVIDERS: PCP Family Medicine; Referring Provider Family Medicine; Visit Provider Family Medicine
DX: Z00.00 Encounter for general adult medical examination without abnormal findings (principal); I10 Essential (primary) hypertension; N18.9 Chronic kidney disease, unspecified; I25.10 Atherosclerotic heart disease of native coronary artery without angina pectoris; K21.9 Gastro-esophageal reflux disease without esophagitis; R13.10 Dysphagia, unspecified; Z12.5 Encounter for screening for malignant neoplasm of prostate
CPT/HCPCS: 80053; 80061; G0103

== ENCOUNTER 2024-08-02 09:40 | Emergency (ER) | payer MEDICAID, SELFPAY ==
[2024-08-02 09:44] VITALS: BP 161/77; PULSE 118; RESP 18; TEMP 36.7; O2SAT 98; BMI 19.6
--- NOTE | 2024-08-02 11:17 | ED.CHESTPAIN ---
HPI - Chest Pain General Date Seen: 08/02/24 Chief Complaint: Unspecified Complaint, Adult Stated Complaint: Possible blockage in esophagus Time Seen by Provider: 08/02/24 10:27 Source: patient Mode of arrival: ambulatory Limitations: no limitations History of Present Illness HPI narrative: Patient is a 64-year-old gentleman who presents here for evaluation of a chest discomfort when he swallows, 3 days ago, he ate cells very stay, he woke up after approximately 6 hours after he ate trauma and noted that he had pain in his chest, he did retch, he did not get any steak up at that apply. And did not have any bleeding. Since then and it has got a slightly improved, he has been able to swallow small amounts of fluids, but notes pain with this. He did try some ate scrambled eggs yesterday and was able to get this down. He has no pain at rest, only when he swallows, denies any exertional did component to this, any radiation, A couple years ago at this is sent to [facility] he did undergo endoscopy, was told he would needed to have a follow-up 1 done in May of 2024. He unfortunately could not get a ride here and have that done. He has been taking his medications at least his omeprazole, for the last month, he alternates his blood pressure medications he tells me because his blood pressure does get too low. Sees Dr. Bryan umana at [facility]. Was a smoker but stopped 15 years ago, is been diagnosed with some COPD, does drink approximately 12 oz of alcohol, a week. No history of late will loss, fevers chills, no history of malignancy. Denies any black stools, or blood in stools, Does have a history of 5 previous cardiac stents. Has not taken his aspirin for quite some time. Related Data Previous Rx's ?Medication ?Instructions ?Recorded amlodipine 10 mg tablet 10 mg PO QDAY #90 tabs 05/02/24 ezetimibe 10 mg tablet 10 mg PO DAILY #90 tabs 05/02/24 lisinopril 5 mg tablet 5 mg PO QDAY #90 tabs 05/02/24 nitroglycerin 0.4 mg sublingual 0.4 mg sublingual Q5M PRN chest 05/02/24 tablet pain #25 tabs omeprazole 40 mg capsule,delayed 40 mg PO QDAY #90 caps 05/02/24 release rosuvastatin 40 mg tablet 40 mg PO DAILY #90 tabs 05/02/24 Allergies Allergy/AdvReac Type Severity Reaction Status Date / Time No Known Allergies Allergy Verified 08/02/24 09:51 Review of Systems Status of ROS Reports: 10 or more systems reviewed and unremarkable except as noted in History and below [facility] Medical History Anemia ?D64.9 - Anemia, unspecified (ICD-10) Acute kidney injury ?N17.9 - Acute kidney failure, unspecified (ICD-10) Chest pain ?R07.9 - Chest pain, unspecified (ICD-10) Chronic kidney disease ?N18.9 - Chronic kidney disease, unspecified (ICD-10) Coronary artery disease ?I25.10 - Atherosclerotic heart disease of [place] coronary artery without angina pectoris (ICD-10) Glaucoma ?H40.9 - Unspecified glaucoma (ICD-10) Hypercalcemia ?E83.52 - Hypercalcemia (ICD-10) Hyperlipidemia ?E78.5 - Hyperlipidemia, unspecified (ICD-10) Hypertension ?I10 - Essential (primary) hypertension (ICD-10) Obesity ?E66.9 - Obesity, unspecified (ICD-10) GERD (gastroesophageal reflux disease) ?K21.9 - Gastro-esophageal reflux disease without esophagitis (ICD-10) COPD (chronic obstructive pulmonary disease) ?J44.9 - Chronic obstructive pulmonary disease, unspecified (ICD-10) Surgical History History of appendectomy ?Z90.49 - Acquired absence of other specified parts of digestive tract (ICD-10) Social History Narrative: SOCIAL HISTORY: Currently not working. Single. No significant other. Here with a friend. One child age 31 [address] in [place]. It sounds like they are estranged. Not sexually active. No regular exercise. HABITS: No tobacco use. Past marijuana use reported. Alcohol use 8 or 9 drinks per week FAMILY HISTORY: Father with lung cancer at 64. What is your current living situation?: I presently have a place to live Problems where you live: no known problems and declined to answer Problems where you live details: none In the past 12 months, utilities in danger of being shut off: no In past 12 months, lack of transportation kept you from medical appts, meetings, work, or getting things needed for daily living: no In the past 12 mos, have been you worried that your food would run out before you had money to buy more?: never true In the past 12 mos, the food you bought just didn't last and you didn't have money to buy more?: never true Highest level of school completed/degree received: 11th grade Smoking Status: Former smoker Do you use any of these nicotine containing products: None Second hand tobacco smoke exposure: No How often do you have a drink containing alcohol: 2-3 times a week How many standard drinks containing alcohol do you have on a typical day: 1 or 2 How often do you have six or more drinks on one occasion: Never AUDIT-C Alcohol total score: 3 Non-prescribed substance use: denies use Caffeine: No How often does anyone, including family, friends and others, physically hurt you: never How often does anyone, including family, friends and others, insult or talk down to you: never How often does anyone, including family, friends and others, threaten you with harm: never How often does anyone, including family, friends and others, scream or curse at you: never service: No Exam Narrative Exam Narrative: Patient is seen in room 2 he is in no apparent distress speaking to me normally, he has no pain at rest, pupils equal round reactive to light there is no scleral icterus redness, TMs are normal oropharynx normal there is no adenopathy anterior posterior chains, chest is bilateral wheezes are noted, in all lung riggs, prolonged expiratory phase is noted. With mild hyperinflation. No crackles noted, heart sounds no clicks murmurs or gallops, abdomen is soft and obese there is no guarding no organomegaly, bowel sounds are normal, no tenderness to palpation, skin reveals no petechiae rashes moves all extremities independently and well, Const Vital Signs, click to edit/add: Vital Signs - 24 hr 08/02/24 09:44 Temperature 98.1 F Pulse Rate [Right Pulse Oximeter] 118 H Respiratory Rate 18 Blood Pressure [Right Upper Arm] 161/77 H Pulse Oximetry 98 Oxygen Delivery Method Room Air Course Reevaluation(s) Time of Reevaluation #1: 11:31 Reevaluation #1: I spoke to endoscopy, if he is able to the swallow fluids, we can have him come down back, as an outpatient, he tentatively has appointment with Dr. Durant on 08/05/24 at 12:45 p.m.. Here in endoscopy, for likely dilatation. And a diagnostic EGD. He will need to be clear fluids up to 4 hours previous to endoscopy. In someone to drive him home. Time of Reevaluation #2: 12:02 Reevaluation #2: Patient is able to keep down clear fluids, does have some pain, but he is able to drink this. I am set up for an EGD on Thursday. He will continue to take his medications, he will continue on with the current diet, maybe try a little bit aches, but if he stops or is unable to drink any fluids, he needs to come back and be seen. Specially with his history of chronic renal insufficiency. The he has a ride for Thursday also. He understands this. His troponin was negative, his EKG showed no acute changes chest x-ray is normal, he was not anemic, his creatinine was in the range where he normally is. Vital Signs Vital signs: Initial Vital Signs Temperature 98.1 F 08/02/24 09:44 Temperature Source Temporal Artery Scan 08/02/24 09:44 Pulse Rate 118 H 08/02/24 09:44 Pulse Rhythm Regular 08/02/24 09:44 Pulse Strength 3+ Normal 08/02/24 09:44 Respiratory Rate 18 08/02/24 09:44 Blood Pressure 161/77 H 08/02/24 09:44 Blood Pressure Mean 105 08/02/24 09:44 Blood Pressure Position Sitting 08/02/24 09:44 Pulse Oximetry 98 08/02/24 09:44 Oxygen Delivery Method Room Air 08/02/24 09:44 Vital Signs Temperature 98.1 F 08/02/24 09:44 Pulse Rate 118 H 08/02/24 09:44 Respiratory Rate 18 08/02/24 09:44 Blood Pressure 161/77 H 08/02/24 09:44 Pulse Oximetry 98 08/02/24 09:44 Oxygen Delivery Method Room Air 08/02/24 09:44 Temperature 98.1 F 08/02/24 09:44 Pulse Rate 118 H 08/02/24 09:44 Respiratory Rate 18 08/02/24 09:44 Blood Pressure 161/77 H 08/02/24 09:44 Pulse Oximetry 98 08/02/24 09:44 Oxygen Delivery Method Room Air 08/02/24 09:44 Medications Administered Medications: Discontinued Medications Generic Name Dose Route Start Last Admin Trade Name Freq PRN Reason Stop Dose Admin Sodium Chloride 1,000 mls @ 1,000 mls/hr 08/02/24 11:00 08/02/24 11:29 0.9 % Sodium Chloride 1000 Ml IV 08/02/24 11:59 1,000 mls/hr .Q1H LU Administration Pantoprazole Sodium 40 mg 08/02/24 10:52 08/02/24 11:29 Pantoprazole Sodium 40 Mg Inj IVP 08/02/24 10:53 40 mg ONCE ONE Administration MDM - Chest Pain MDM Narrative Medical decision making narrative: During the evaluation of this patient I considered multiple differential diagnosis is. The life-threatening differential diagnosis include coronary disease/GA, pulmonary embolism, pneumothorax, pneumonia, and aortic dissection. Other differential diagnosis included but were not limited to pericarditis, myocarditis, chest wall pain, GERD, esophageal rupture, rib fracture contusion, pleurisy, as well as other etiologies. Medical Records Data Attestation: I reviewed the patient's medical records. Lab Data Attestation: I reviewed the patient's lab results. Labs: Lab Results 08/02/24 Range/Units 10:53 WBC 9.14 (4.50-11.00) K/uL RBC 4.58 (4.30-5.90) m/uL Hgb 12.0 L (13.5-17.5) gm/dL Hct 38.2 (37.0-53.0) % MCV 83 (80-100) fL MCH 26 (26-34) pg MCHC 31 L (32-36) gm/dL RDW Coeff of Ana María 15.5 (11.5-15.5) % Plt Count 209 (140-440) K/uL Neut % (Auto) 76.8 H (42.0-72.0) % Lymph % (Auto) 10.9 L (20-44) % [place] % (Auto) 10.3 (0.0-11.0) % Eos % (Auto) 0.7 (0.0-7.0) % Baso % (Auto) 0.2 (0.0-3.0) % Neut # (Auto) 7.00 (1.7-7.0) K/uL Lymph # (Auto) 1.00 (0.90-2.90) K/uL [place] # (Auto) 0.90 (0.00-0.90) K/UL Eos # (Auto) 0.06 (0.00-0.50) K/uL Baso # (Auto) 0.02 (0.00-0.30) K/uL Abs Immat Gran (auto) 0.10 (0.00-0.30) K/uL Imm/Tot Granulo (auto) 1.1 % INR 0.92 (0.91-1.10) APTT 29 (23-33) Seconds Sodium 136 (135-149) mmol/L Potassium 3.5 L (3.6-5.1) mmol/L Chloride 104 (96-114) mmol/L Carbon Dioxide 20 (20-32) mmol/L Anion Gap 12 (7-15) mEq/L BUN 22 (7-30) mg/dL Creatinine 2.2 H (0.5-1.5) mg/dL Estimated Creat Clear 27.56 Estimated GFR 33 ml/min Glucose 97 (60-115) mg/dL Calcium 9.5 (8.4-10.6) mg/dL POC Troponin I 0.01 (0.01-0.04) ng/ml Imaging Data Chest x-ray: Attestation: I have reviewed the pertinent imaging results. My impression: No acute process Radiologist's impression: [facility] [address] [place] [address] Diagnostic Imaging Report Patient: Perico Huerta MR#: [id number] : 1960 Acct:[id number] Loc: ED Service Date: 08/02/[address]: Ordering Physician: Donald Caro M.D. Date of Service: 08/02/24 Procedure(s): XR chest 2V Accession Number(s): [id number] cc: Hi Adams M.D.; Donald Caro M.D.~ For Patients: As a result of the Century Cures Act, medical imaging exams and procedure reports are released immediately into your electronic medical record. You may view this report before your referring provider. If you have questions, please contact your health care provider. INDICATION: : Chest pain COMPARISON: Chest radiograph on February 16, 2024 and prior studies TECHNIQUE: Two view(s) of the chest FINDINGS: The heart is normal in size. Coronary artery stent. There is no focal airspace consolidation, pleural effusion, or pneumothorax. No displaced fractures. Degenerative changes of the spine. IMPRESSION: No acute cardiopulmonary process. Dictated by Arturo Resendiz MD @ 08/02/2024 11:31:58 AM (Electronically Signed) ECG Data Attestation: I personally reviewed and interpreted this ECG as follows: ECG interpretation date: 08/02/24 Prior ECG tracings: available for review Interpretation: EKG shows mild sinus tachycardia with a ventricular rate of 104, QRS is 88, QT is 326 and QTC is 428 milliseconds, no acute ST wave changes are noted, when compared to old EKG from 02/17/2024. Assessment: Mild sinus tachycardia, no acute ST wave changes, Discharge Plan Discharge Clinical Impression: Esophageal pain, GERD (gastroesophageal reflux disease), COPD (chronic obstructive pulmonary disease), Anemia, Chronic kidney disease, Dysphagia, History of coronary artery disease Patient Disposition: Home, Self-Care Condition: Stable Instructions: COPD (Chronic Obstructive Pulmonary Disease) (DC), GERD (Gastroesophageal Reflux Disease) (DC), Esophageal Stricture (ED), Corrosive Esophagitis (ED), Food Impaction (ED), Dysphagia (ED) Additional Instructions: Home rest use of clear fluids, he may take these up to 4 hours before bed here scheduled endoscopy. Very soft diet, but she made just want to stay on the clear fluids. I have you scheduled for the endoscopy on 08/05/24 at 12:45 p.m. here at the hospital. Continue on with your current medications. May want to consider follow-up the primary care to discuss your medications. As with a history of coronary disease he may need to be on your aspirin. He is holding her aspirin for 2 days prior to endoscopy is also suggested. If you are unable to take any liquids at all, then he will need to be come back and be seen given your history of chronic renal insufficiency, Discharge Diet: Clear Liquid Prescriptions: No Action amlodipine 10 mg tablet 10 mg PO QDAY Qty: 90 3RF lisinopril 5 mg tablet 5 mg PO QDAY Qty: 90 3RF ezetimibe 10 mg tablet 10 mg PO DAILY Qty: 90 3RF nitroglycerin 0.4 mg tablet, sublingual 0.4 mg sublingual Q5M PRN (Reason: chest pain) Qty: 25 0RF Rx Instructions: As needed for chest pain x3 doses. omeprazole 40 mg capsule,delayed release(DR/EC) 40 mg PO QDAY Qty: 90 3RF rosuvastatin 40 mg tablet 40 mg PO DAILY Qty: 90 3RF Follow Up/Referrals: Hi Adams MD [Primary Care Provider] - Stand Alone Forms: [employer] Info Instructions
[2024-08-02] MEDS: 0.9 % SODIUM CHLORIDE 1000 ml 1,000 ML IV (11:29)
[2024-08-02] MEDS: PANTOPRAZOLE SODIUM 40 MG INJ IVP (11:29)
[2024-08-02 11:30] LABS: Basophils Absolute Auto 0.02 K/uL (0.00-0.30); Basophils Percent Auto 0.2 % (0.0-3.0); Eosinophils Absolute Auto 0.06 K/uL (0.00-0.50); Eosinophils Percent Auto 0.7 % (0.0-7.0); Hematocrit 38.2 % (37.0-53.0); Immature Granulocytes Pct Auto 1.1 %; Lymphocytes Percent Auto 10.9 % (20-44); Mean Corpuscular HGB Conc 31 gm/dL (32-36); Mean Corpuscular Hemoglobin 26 pg (26-34); Mean Corpuscular Volume 83 fL (80-100); Monocytes Percent Auto 10.3 % (0.0-11.0); Neutrophils Percent Auto 76.8 % (42.0-72.0); Platelet Count* 209 K/uL (140-440); RDW Coefficient of Variation % 15.5 % (11.5-15.5); Red Blood Count 4.58 m/uL (4.30-5.90); White Blood Count* 9.14 K/uL (4.50-11.00)
[2024-08-02 11:32] LABS: Slide Review Reflex No
[2024-08-02 11:36] LABS: Chloride* 104 mmol/L (96-114); Sodium* 136 mmol/L (135-149)
[2024-08-02 11:37] LABS: Potassium* 3.5 mmol/L (3.6-5.1)
[2024-08-02 11:39] LABS: Creatinine* 2.2 mg/dL (0.5-1.5); Est. Creatinine Clearance* 27.56; Estimated Glomerular Filt Rate 33 ml/min; Troponin, Point-of-Care* 0.01 ng/ml (0.01-0.04)
[2024-08-02 11:40] LABS: Anion Gap 12 mEq/L (7-15); Blood Urea Nitrogen* 22 mg/dL (7-30); Calcium* 9.5 mg/dL (8.4-10.6); Carbon Dioxide* 20 mmol/L (20-32); Glucose* 97 mg/dL (60-115); INR 0.92 (0.91-1.10); Prothrombin Time 12.9 Seconds
[2024-08-02 11:41] LABS: Partial Thromboplastin Time* 29 Seconds (23-33)
[2024-08-02 12:23] VITALS: BP 149/90; PULSE 93; RESP 18; TEMP 36.7; O2SAT 90
[2024-08-02 12:24] VITALS: BP 149/90; PULSE 93; RESP 18; TEMP 36.7; O2SAT 90
--- OUTSIDE RECORDS SUMMARY | 2024-08-03 13:49 | XMS_ITS | Clinical Summary ---
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 For routine questions regarding patient records, call [phone] during business hours, M-F 8:00 AM - 5:00 PM Central Time. Record requests for emergency care only can be directed to [phone] at any time.[facility] Allergies No known active allergies Medications Ventolin [...] 72 03/28/2022 4:21 PM CDT Temperature 36.6 C (97.9 F) 03/28/2022 2:15 PM CDT Respiratory Rate - - Oxygen Saturation 97% 03/28/2022 2:15 PM CDT Inhaled Oxygen Concentration - - Weight - - Height - - Body Mass Index - - Plan of Treatment Health Maintenance Due Date Last Done Comments CT Colonography 1961 Cologuard 1960 Colonoscopy 1961 Colorectal Cancer Screening 1961 FIT 1961 HIV Screening 1961 Hepatitis C Screening 1961 Pneumococcal vaccine (50+ years) (2 of 2 - PCV) 03/11/2023 03/11/2022 Fasting Glucose for Diabetes Screening 03/04/2024 03/04/2021 COVID-19 Vaccine ( season) 2024 05/07/2023, 09/03/2021, 02/26/2021, Additional history exists Influenza Vaccine (#1) 2024 , 04/30/2022, 04/22/2021, Additional history exists Depression Screening (Annual PHQ-2) 07/06/2024 Lipid (Cholesterol) Screening 03/04/2026 03/04/2021 DTaP,Tdap,and Td Vaccines (2 - Td or Tdap) 06/13/2031 06/13/2021 Zoster Vaccines Completed 05/27/2022, 04/01/2022 IPV Vaccines Aged Out No longer eligi ble based on patient's age to complete this topic Insurance ARE
--- OUTSIDE RECORDS SUMMARY | 2024-08-03 13:49 | XMS_ITS | Clinical Summary ---
Author Organization [facility] Address [place], [place] [address] Care Team Providers Care Application Performance Engineer Name Role Phone Hi Adams MD Primary Care Provider [phone] Allergies No known active allergies Medications rosuvastatin (CRESTOR) 20 mg tablet Take 20 mg by mouth once daily. Active metoprolol tartrate (LOPRESSOR) 100 mg tablet Take 50 mg by mouth 2 times daily. Active lisinopril-hydroc hlorothiazide, 20-25 mg, (PRINZIDE, ZESTORETIC) 20-25 mg per tablet Take 1 Tablet by mouth once daily. Active nitroglycerin (NITROSTAT) 0.[address] 0.4 mg under the tongue every 5 minutes if needed for Chest Pain. Active aspirin chewable 81 mg chewable tablet Chew 81 mg by mouth once daily. Active amLODIPine (NORVASC) 10 mg tabletIndications :Essential hypertension TAKE ONE TABLET BY MOUTH (10MG) ONCE DAILY 90 Tablet 3 1 Active ezetimibe (Zetia) 10 mg tabletIndications :Coronary artery disease involving [place] coronary artery without angina pectoris, unspecified whether [place] or transplanted heart Take 1 Tablet (10 mg) by mouth once daily. 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 Gender Identity Not on file Sexual Orientation Not on file Obstetrics History Last Filed Vital Signs Vital Sign Reading Time Taken Comments Blood Pressure 126/74 03/14/2022 3:21 PM CDT Pulse 84 03/14/2022 3:21 PM CDT Temperature 36.7 C (98 F) 03/08/2021 8:24 AM CDT Respiratory Rate 16 03/14/2022 3:21 PM CDT Oxygen Saturation 98% 03/08/2021 8:24 AM CDT Inhaled Oxygen Concentration - - Weight 100.7 kg (222 lb) 03/14/2022 3:21 PM CDT Height 170.2 cm (5' 7) 03/07/2021 8:12 AM CDT Body Mass Index 34.77 03/07/2021 8:12 AM CDT Plan of Treatment Upcoming Encounters Date Type Department Care Team (Late st Contact Info) Description 08/05/2024 12:45 PM 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 Office Visit [facility] [address] [place] [address] Abel Durant MD [address] [place] [address] Health Maintenance Due Date Last Done Comments Tdap 1972 Depression screening for age 12+ 1973 HIV for age 15-65 1976 BMI (ht and wt on same day) for age 18+ 1979 Hepatitis C screening for age 18-79 1979 Pneumococcal series for age 50+ (1 of 2 - PCV) 1980 Tetanus booster 1981 Colonoscopy through age 75 2006 Zoster (shingles) series for age 50+ (1 of 2) 2011 RSV vaccine for adults or pr egnancy (1 - Risk 60-74 years 1-dose series) 2021 COVID-19 vaccine series (2023- season) 2024 09/03/2021, 02/26/2021, 02/05/2021 Influenza for [...] - 199 mg/dL 03/04/2021 4:24 PM CDT [facility] TRIGLYCERIDES 73 <150 mg/dL 03/04/2021 4:24 PM CDT [facility] HDL CHOLESTEROL 52 >40 mg/dL 4:24 PM CDT [facility] NON-HDL CHOLESTEROL 153(H) <145 mg/dl 03/04/2021 4:24 PM CDT [facility] CHOL/HDL RATIO 3.94 <4.50 03/04/2021 4:24 PM CDT [facility] LDL CHOLESTEROL 138(H) <=130 mg/dL 03/04/2021 4:24 PM CDT [facility] VLDL CHOLESTEROL 15 mg/dL 03/04/20 4:24 PM CDT [facility] PROVIDER ORDERED STATUS FASTING 03/04/2021 4:24 PM CDT [facility] Blood BLOOD SPECIMEN / Unknown Venipuncture / Unknown 03/04/2021 10:46 AM CDT 03/04/2021 10:46 AM CDT us Chinmay Guerrero MD CHEMISTRY Final Res ult [facility] [address] [facility] [employer] [address] [place] [address], from Last 3 Months or Most Recently Relevant to Health Maintenance [facility] Advance Directives * Full Code (Latest Code Status on File) Date Activated Date Inactivated Comments 03/07/2021 8:55 AM 03/08/2021 12:47 PM Question Answer Comments Code Status Discussion: Discussed Care Teams Application Performance Engineer Relationship Specialty Start Date End Date Hi Adams MD [address] [place] [address] PCP - General Family Practice 02/12/21
== END 2024-08-02 13:12 | disposition home or self-care (01) ==
PROVIDERS: Emergency Provider Family Medicine; PCP Family Medicine
DX: R07.0 Pain in throat (principal); R13.10 Dysphagia, unspecified; K21.9 Gastro-esophageal reflux disease without esophagitis; J44.9 Chronic obstructive pulmonary disease, unspecified; D64.9 Anemia, unspecified; N18.9 Chronic kidney disease, unspecified
CPT/HCPCS: 36415; 43239; 71046; 80048; 84484; 85025; 85610; 85730; 96374; 99284; J2470; J7030

== ENCOUNTER 2024-08-05 12:08 | Outpatient (CLI) | payer MEDICAID, SELFPAY ==
--- NOTE | 2024-08-05 13:47 | W.ANESCHARGE ---
Anesthesia Charges Start Date/Time Anesthesia Start Date: 08/05/24 Anesthesia Start Time: 14:02 Stop Date/Time Anesthesia Stop Date: 08/05/24 Anesthesia Stop Time: 14:18 Coding CPT Codes CPT Codes: ANES UPR GI NDSC PX NOS - 49548 ([id number]) P3 - PATIENT W/SEVERE SYS DISEASE, QK - RURAL ROUTE CARRIER 2-4 CNCRNT ANES PROC, QX - CNC MILL OPERATOR SVC W/ MD MED DIRECTION
--- NOTE | 2024-08-05 14:25 | W.ANESCHARGE ---
Anesthesia Charges Start Date/Time Anesthesia Start Date: 08/05/24 Anesthesia Start Time: 14:02 Stop Date/Time Anesthesia Stop Date: 08/05/24 Anesthesia Stop Time: 14:18 Coding CPT Codes CPT Codes: ANES UPR GI NDSC PX NOS - 59502 ([id number]) P3 - PATIENT W/SEVERE SYS DISEASE, QK - MANAGER STRATEGIC SOURCING 2-4 CNCRNT ANES PROC, QX - PROGRAMS DIRECTOR SVC W/ MD MED DIRECTION
== END 2024-08-05 12:09 | disposition home or self-care (01) ==
LOC: OP CLINIC 12:09
PROVIDERS: PCP Family Medicine; Visit Provider Internal Medicine Gastroenterology
DX: R13.10 Dysphagia, unspecified (principal); K22.89 Other specified disease of esophagus
CPT/HCPCS: 00731; 43239; 88305; J2704; J3490

== ENCOUNTER 2024-12-26 09:54 | Outpatient (CLI) | payer MEDICAID, SELFPAY | END 2024-12-26 09:55 | disposition home or self-care (01) | LOC: NFLDREF 12-28 03:33 | PROVIDERS: PCP Family Medicine; Referring Provider Family Medicine; Visit Provider Internal Medicine Nephrology | DX: N18.32 Chronic kidney disease, stage 3b (principal) | CPT/HCPCS: 80069; 82043; 82570; 82728; 83540; 83550 ==

== ENCOUNTER 2025-05-17 11:15 | Outpatient (CLI) | payer MEDICAID, SELFPAY | END 2025-05-17 11:16 | disposition home or self-care (01) | PROVIDERS: PCP Family Medicine; Visit Provider Internal Medicine Nephrology | DX: I10 Essential (primary) hypertension (principal); E78.5 Hyperlipidemia, unspecified; Z12.5 Encounter for screening for malignant neoplasm of prostate | CPT/HCPCS: 80053; 80061; 80069; 82043; 82570; 82728; 83540; 83550; G0103 ==

== ENCOUNTER 2025-06-07 10:54 | Outpatient (CLI) | payer MEDICAID, SELFPAY | END 2025-06-07 10:55 | disposition home or self-care (01) | LOC: NFLDREF 06-08 14:40 | PROVIDERS: PCP Family Medicine; Referring Provider Family Medicine; Visit Provider Internal Medicine Nephrology | DX: N18.9 Chronic kidney disease, unspecified (principal) | CPT/HCPCS: 82043; 82570; 87086 ==